=== PATIENT | male | born 1940 | race African-American/Black ===

== ENCOUNTER 2017-11-13 19:43 | Emergency (ER) | payer MEDICARE, OTHER ==
[2017-11-13 20:34] LABS: Bilirubin Small (Negative); Blood, Urine Negative (Negative); Clarity CLEAR (Clear); Glucose, Urine (Dipstick) Negative (Negative); Leukocyte Trace (Negative); Nitrite Negative (Negative); Protein, Urine (Dipstick) 100 mg/dL (Neg-Trace); Specific Gravity, Urine 1.025 (1.002-1.036)
[2017-11-13 20:36] LABS: Bacteria/HPF None Seen HPF (None Seen); Hyaline Casts/LPF 4-6 HYALINE CAST LPF (0-3 Hyaline); Squamous Epithelial 0-3 HPF (0-3); WBC/HPF 0-3 HPF (0-3)
[2017-11-13 20:37] LABS: RBC/HPF 0-3 HPF (0-3)
--- NOTE | 2017-11-13 21:11 | RAD ---
RADIOGRAPH OF CHEST TWO VIEW SERIES 11/13/17 COMPARISON: 05/08/17 INDICATION: Cough. FINDINGS: There is no evidence of consolidation, effusion or pneumothorax. The cardiomediastinal silhouette is stable. Metallic clips again seen at the base of the left neck. Vascular calcification and osseous de generative changes present. IMPRESSION: No lobar consolidation. POS: [facility]
[2017-11-13 23:14] LABS: #Lymphocytes 1.4 thou/uL (1.20-3.40); %Basophils 0.4 % (0.0-1.0); %Eosinophils 0.4 % (0.0-10.0); %Lymphocytes 13.5 % (21.0-51.0); %Monocytes 9.7 % (0.0-10.0); %Neutrophils 76.1 % (42.0-75.0); Hemoglobin 10.7 g/dL (14.0-18.0); Mean Corpuscular HGB CONC 32.1 g/dL (32.0-36.0); Mean Corpuscular Hemoglobin 24.6 pg (27.0-31.0); Mean Corpuscular Volume 76.5 fl (80.0-94.0); Mean Platelet Volume 11.4 fL (7.4-10.4); Platelet Count 172 thou/uL (130-400); RBC Distribution Width 13.3 % (11.5-14.5); Red Blood Cell (RBC) Count 4.34 mill/uL (4.70-6.10); White Blood Cell (WBC) Count 10.4 thou/uL (4.8-10.8)
[2017-11-13 23:27] LABS: ALT (SGPT) 9 U/L (8-55); AST (SGOT) 20 U/L (5-34); Albumin 3.8 g/dL (3.4-4.8); Alkaline Phosphatase 59 U/L (40-150); Anion Gap 12 mmol/L (10-20); BUN (Urea Nitrogen) 19 mg/dL (8.4-25.7); Bilirubin, Total 1.1 mg/dL (0.2-1.2); Calc. Creatinine Clearance 0 mL/min (70-130); Calcium 9.5 mg/dL (7.8-10.44); Carbon Dioxide 27 mmol/L (23-31); Chloride 105 mmol/L (98-107); Estimated GFR-MDRD 55; Globulin 3.5 g/dL (2.4-3.5); Glucose 113 mg/dL (83-110); Potassium 3.7 mmol/L (3.5-5.1); Protein, Total 7.3 g/dL (5.8-8.1); Sodium 140 mmol/L (136-145)
== END 2017-11-13 23:53 | disposition home or self-care (01) ==
LOC: ERS 19:43
DX: J20.9 Acute bronchitis, unspecified (principal); H10.9 Unspecified conjunctivitis; E11.9 Type 2 diabetes mellitus without complications; E78.5 Hyperlipidemia, unspecified; I10 Essential (primary) hypertension; F31.9 Bipolar disorder, unspecified; Z79.899 Other long term (current) drug therapy; Z79.82 Long term (current) use of aspirin
CPT/HCPCS: 71046; 80053; 81003; 81015; 85025; 87804; 94640

== ENCOUNTER 2017-11-18 04:09 | Inpatient (IN) | payer MEDICARE, OTHER ==
[2017-11-18] MEDS ORDERED: Ibuprofen 800 MG TAB ONE (04:49)
[2017-11-18 05:17] LABS: ALT (SGPT) 13 U/L (8-55); AST (SGOT) 32 U/L (5-34); Albumin 3.6 g/dL (3.4-4.8); Alkaline Phosphatase 47 U/L (40-150); Anion Gap 14 mmol/L (10-20); BUN (Urea Nitrogen) 18 mg/dL (8.4-25.7); Bilirubin, Total 0.5 mg/dL (0.2-1.2); Calc. Creatinine Clearance 0 mL/min (70-130); Calcium 9.1 mg/dL (7.8-10.44); Carbon Dioxide 26 mmol/L (23-31); Chloride 99 mmol/L (98-107); Estimated GFR-MDRD 56; Glucose 127 mg/dL (83-110); Potassium 4.5 mmol/L (3.5-5.1); Protein, Total 7.6 g/dL (5.8-8.1); Sodium 134 mmol/L (136-145)
[2017-11-18 05:43] LABS: Band 6 % (5-11); Hemoglobin 10.8 g/dL (14.0-18.0); Lymphocytes 18 % (21-51); MDiff Complete? YES; Mean Corpuscular Hemoglobin 24.3 pg (27.0-31.0); Mean Corpuscular Volume 75.9 fl (80.0-94.0); Mean Platelet Volume 11.4 fL (7.4-10.4); Monocytes 10 % (0-10); Neutrophil 66 % (42-75); Platelet Count 187 thou/uL (130-400); Red Blood Cell (RBC) Count 4.45 mill/uL (4.70-6.10)
[2017-11-18 05:51] LABS: Bilirubin Negative (Negative); Blood, Urine Negative (Negative); Clarity CLEAR (Clear); Glucose, Urine (Dipstick) Negative (Negative); Leukocyte Negative (Negative); Nitrite Negative (Negative); Protein, Urine (Dipstick) 30 mg/dL (Neg-Trace); Specific Gravity, Urine 1.016 (1.002-1.036)
[2017-11-18 05:54] LABS: Bacteria/HPF None Seen HPF (None Seen); Hyaline Casts/LPF 0-3 HYALINE CAST LPF (0-3 Hyaline); Pathc Cast-AUWi Flag 0.27 (0-2.49); Squamous Epithelial 0-3 HPF (0-3); WBC/HPF 0-3 HPF (0-3)
[2017-11-18 06:34] LABS: RBC/HPF 0-3 HPF (0-3); Renal Epithelial 0-3 HPF (0-3)
[2017-11-18 06:48] LABS: CKMB 1.5 ng/mL (0-6.6); Troponin I 0.022 ng/mL (< 0.028)
[2017-11-18] MEDS ORDERED: Acetaminophen 500 MG TAB ONE (06:48)
[2017-11-18] MEDS ORDERED: Acetaminophen 650 MG Suppository ONE (07:24)
[2017-11-18] MEDS ORDERED: Acetaminophen 325 MG Suppository ONE (07:24)
--- NOTE | 2017-11-18 08:00 | RAD ---
PORTABLE CHEST: Date: 11-18-17 Time: 4:48 a.m. History: Fever. FINDINGS: Comparison is made with exam of 11-13-17. The heart size is borderline. The aorta is tortuous. No lobar consolidation, pneumothorax, earl pulm onary edema, or pleural effusions are seen. Post op changes in the base of the left knee are re-demon strated. IMPRESSION: No acute process. POS: [facility]
[2017-11-18] MEDS ORDERED: Lidocaine 1% PF 5 ML VIAL ONE (08:48)
[2017-11-18] MEDS ORDERED: CEFAZOLIN/Water 2 GM/20 ML SYRINGE ONE (09:21)
[2017-11-18] MEDS ORDERED: Vancomycin HCl 1.5 GM in Sodium Chloride 0.9% 250 ML 300 ML IVPB SCH (09:30)
[2017-11-18] MEDS ORDERED: cefTRIAXone\\ROCEPHIN 2 GM in Sodium Chloride 0.9% 100 ML IVPB SCH (09:30)
[2017-11-18] MEDS ORDERED: Ampicillin 2 GM, Syringe 5.2 ML in Sterile Water 14.8 ML SLOW IVP SCH ×2 (09:30→17:00)
[2017-11-18 09:34] LABS: Color Of CSF Supernatant COLORLESS (Colorless); Tube # 2; Unspun CSF Color COLORLESS (Colorless)
[2017-11-18 09:45] LABS: CSF, Glucose Less than 5 mg/dl (40-70)
[2017-11-18 09:46] LABS: CSF Source CSF; Tube # 1
[2017-11-18 09:47] LABS: Clarity Cloudy/Turbid (Clear)
[2017-11-18 09:49] LABS: WBC/NonHematics Count - Manual 73500 /cumm (0-5)
[2017-11-18 09:52] LABS: CSF Source CSF; Clarity Cloudy/Turbid (Clear); Tube # 4
[2017-11-18 10:39] LABS: Cell Count Non Hematic 6 %; Lymphocytes 1 %
[2017-11-18 10:42] LABS: Segmented Neutrophils 93 %
[2017-11-18 10:44] LABS: Cell Count Non Hematic 5 %; Lymphocytes 2 %; Segmented Neutrophils 93 %
[2017-11-18 11:10] LABS: CSF, Protein 642 mg/dL (15-40)
[2017-11-18] MEDS ORDERED: Ondansetron HCl/PF 4 MG/2 ML Vial IVP PRN (15:09)
[2017-11-18] MEDS ORDERED: Ondansetron ODT 4 MG TAB SL PRN (15:09)
[2017-11-18] MEDS: Sodium Chloride 0.45% 1,000 ML IV SCH (18:07)
[2017-11-18] MEDS: Ampicillin 2 GM, Syringe 5.2 ML in Sterile Water 14.8 ML SLOW IVP SCH ×2 (18:07→21:24)
[2017-11-18] MEDS: cefTRIAXone\\ROCEPHIN 2 GM in Sodium Chloride 0.9% 100 ML IVPB SCH (21:10)
[2017-11-18] MEDS: Dexamethasone 4 mg/ml Vial SLOW IVP SCH (21:13)
[2017-11-18] MEDS: Simvastatin 20 MG TAB PO SCH (21:15)
[2017-11-18] MEDS: hydrALAZINE 25 MG TAB PO SCH (21:15)
[2017-11-18] MEDS: Divalproex Sodium DR 500 MG TAB PO SCH (21:17)
[2017-11-18] MEDS: risperiDONE 3 MG TAB PO SCH (21:17)
[2017-11-18] MEDS ORDERED: Vancomycin HCl 1 GM in Premix Bag 1 BAG IVPB SCH (23:00)
[2017-11-19] MEDS: Ampicillin 2 GM, Syringe 5.2 ML in Sterile Water 14.8 ML SLOW IVP SCH ×5 (01:50→19:14)
--- NOTE | 2017-11-19 05:58 | HP ---
DATE OF ADMISSION: 11/18/2017 REASON FOR ADMISSION AND CHIEF COMPLAINT: Altered mental status, fever, cough. HISTORY OF PRESENT ILLNESS: Mr. Brian is a 77-year-old -Italian male with past medical his tory of hypertension, hypothyroidism, bipolar disorder, who was brought in by the family with change in mental status. The patient has been having fever for the last couple of days. The patient was se en in the ER about 5-6 days ago and was diagnosed with bronchitis and was given Z-Valentin and released, b ut the patient developed fever of 102 now since yesterday, has been having cough, and also there is s ome change in mental status. The patient woke up confused and weak. No strength, complained of lot of headache as well. The patient was given Tylenol. EMS was called and patient was brought to the e mergency room, where he was evaluated and found to be change in mental status as well as possible men ingitis. The patient received antibiotics, Rocephin, vancomycin, and ampicillin in the ER and receiv ed Tylenol as well and admitted for further evaluation and management. Currently, the patient is mor e awake and alert. PAST MEDICAL HISTORY: 1. Hypertension. 2. Diabetes mellitus. 3. Bipolar disorder. 4. Hypothyroidism. 5. History of colon diverticulosis. 6. History of depression and anxiety. 7. History of atrial flutter, status post ablation. PAST SURGICAL HISTORY: Status post partial thyroidectomy, status post ablation of atrial flutter. CURRENT MEDICATIONS: The patient is on aspirin 81 mg daily, vitamin D 5000 units daily, vitamin B12 of 1000 mcg daily, Depakote 750 mg at bedtime, ferrous sulfate daily, fish oil 1000 mg daily, folic a kelvin 1 mg daily, Lasix 40 mg daily, hydralazine 100 mg t.i.d., levothyroxine 125 mcg daily, lisinopril 40 mg daily, metoprolol 100 mg daily, Risperdal 3 mg at bedtime, simvastatin 20 mg at bedtime, Coenz yme Q daily. ALLERGIES: No known drug allergies. FAMILY HISTORY: Nothing of interest. SOCIAL HISTORY: The patient lives with his . No history of smoking. No history of alcohol inta ke. REVIEW OF SYMPTOMS: Cardiovascular: No chest pain. No shortness of breath. Respiratory: Has coug h and fever. Gastrointestinal: No nausea or vomiting, or abdominal pain. Genitourinary: No dysuri a or hematuria. Central nervous system: The patient has a history of confusion and altered mental. PHYSICAL EXAMINATION: GENERAL: The patient is now alert, awake, oriented x2. VITAL SIGNS: Temperature initially it was 102, now 98.5, pulse 67, respirations 20, blood pressure 1 50/60. HEENT: Head is normocephalic, atraumatic. Pupils are equal and reactive to light. Nasopharynx is p tamiko and dry. NECK: Stiff. No JVD. LUNGS: Breath sounds diminished bilaterally. Percussion not dull bilaterally. No rales, no rhonchi . HEART: S1, S2, regular. ABDOMEN: Soft, no distention, no tenderness. Normal bowel sounds present. RECTAL: Deferred. CENTRAL NERVOUS SYSTEM: The patient is alert, awake x2. Motor system power 4/5 in all extremities. Deep tendon reflexes 2+ bilaterally. Plantar downgoing. Sensory intact. EXTREMITIES: 1+ pitting edema. LABORATORY AND X-RAY FINDINGS: CBC shows WBC 7, hemoglobin 10.8, hematocrit 33.8, platelets 187. Me tabolic panel: Sodium 134, potassium 4.5, chloride 99, CO2 of 26, urea nitrogen 18, creatinine is 1. 4, glucose is 127. Urinalysis negative. CSF analysis initially showed wbc 37,000, neutrophils 93%, glucose less than 5, protein 642. EKG shows accelerated junctional rhythm, no acute ST-T wave change s seen. Chest x-ray negative. ASSESSMENT: 1. Acute meningitis, possible bacterial. 2. Metabolic encephalopathy, improving. 3. Diabetes mellitus. 4. Hypertension. 5. Hypothyroidism. 6. Bipolar disorder. PLAN: 1. Vital signs q.4 hours. 2. Activity: As tolerated. 3. IV fluids: Half normal at 60 mL per hour. 4. Rocephin 2 grams IV piggyback q.12 hours, ampicillin 2 grams IV piggyback q.4 hours, vancomycin 1 .5 grams IV piggyback q.12 hours. 5. Continue home medication. 6. Allergies: No known drug allergies. 7. Diet: ADA.
[2017-11-19] MEDS: Levothyroxine Sodium 125 MCG TAB PO SCH (06:14)
[2017-11-19] MEDS ORDERED: CRANBERRY EXTRACT PO SCH (09:00)
[2017-11-19] MEDS: Dexamethasone 4 mg/ml Vial SLOW IVP SCH ×2 (09:21→21:08)
[2017-11-19] MEDS: Ferrous Sulfate 325 MG TAB PO SCH (09:22)
[2017-11-19] MEDS: Cyanocobalamin (Vitamin B-12) 1,000 MCG TAB PO SCH (09:22)
[2017-11-19] MEDS: Aspirin 81 mg Enteric Coated Tablet PO SCH (09:22)
[2017-11-19] MEDS: Ubidecarenone 50 MG CAP PO SCH (09:23)
[2017-11-19] MEDS: hydrALAZINE 25 MG TAB PO SCH ×3 (09:23→21:06)
[2017-11-19] MEDS: Lisinopril 20 MG TAB PO SCH (09:23)
[2017-11-19] MEDS: Folic Acid 1 MG TAB PO SCH (09:23)
[2017-11-19] MEDS: Fish Oil 1,000 MG CAP PO SCH (09:23)
[2017-11-19] MEDS: cefTRIAXone\\ROCEPHIN 2 GM in Sodium Chloride 0.9% 100 ML IVPB SCH ×2 (09:38→21:46)
[2017-11-19] MEDS: Vancomycin HCl 1 GM in Premix Bag 1 BAG IVPB SCH ×2 (09:38→15:55)
[2017-11-19] MEDS: Sodium Chloride 0.45% 1,000 ML IV SCH (09:45)
[2017-11-19] MEDS ORDERED: cefTRIAXone\\ROCEPHIN 2 GM in Sodium Chloride 0.9% 100 ML IVPB SCH (10:00)
[2017-11-19] MEDS ORDERED: Acetaminophen 1,000 MG in Premix Bag 1 BAG IVPB SCH (12:00)
[2017-11-19] MEDS ORDERED: Acetaminophen 500 MG TAB PO PRN (17:36)
[2017-11-19] MEDS: Divalproex Sodium DR 500 MG TAB PO SCH (21:07)
--- NOTE | 2017-11-19 21:07 | CON ---
DATE OF CONSULTATION: 11/19/2017 HISTORY OF PRESENT ILLNESS: Mr. Brian is a 77-year-old male who presented yesterday afternoon. He had altered mental status and fever. He had a lumbar puncture, which showed 73,000 white cells, 96.3% neutrophils. Glucose was less than 5 and CSF protein is 642. He was admitted to intermediate care and then had a decline in his mental status. This morning he wa s transferred to ICU. After his temperature elevation resolved, he became more alert. He is adequat vero protecting his airway at this time. His initial cultures preliminarily negative, but he was on azithromycin prior to his admission. PAST MEDICAL HISTORY: Remarkable for hypertension, diabetes, bipolar disorder, hypothyroidism, diver ticulosis, depression, and anxiety and atrial flutter ablation. He has had a partial thyroidectomy. MEDICATIONS PRIOR TO ADMISSION: Aspirin, vitamin D, vitamin B12, Depakote, iron, folate, Lasix, hydr alazine, Synthroid, lisinopril, metoprolol, Risperdal, simvastatin, Coenzyme Q10. He has been placed on ampicillin, Rocephin, and vancomycin. ALLERGIES: He has no reported drug allergies. FAMILY HISTORY: Negative for lung disease at an early age. SOCIAL HISTORY: He is a non-smoker, nondrinker, does not use drugs. He lives at home in [place] with his . REVIEW OF SYSTEMS: Otherwise, not accurately obtainable 12-point. PHYSICAL EXAMINATION: VITAL SIGNS: Blood pressure 129/65, heart rate 87, respiratory rate in the low 20s. HEENT: Pupils are equal and reactive. Sclerae is anicteric. Extraocular movements are full. Neck is stiff. I cannot touch under his chest. NEUROLOGIC: He follows commands, but then he keeps doing the command that one gives him. I asked hi m to flex his head down with chin to his chest and he would not release it back until I move the back . He has equal four extremities strength neurologically. NECK: Without lymphadenopathy. LUNGS: Clear. HEART: Regular rhythm. S1 and S2 are normal. ABDOMEN: Soft, nontender, no masses, or organomegaly. EXTREMITIES: Without clubbing, cyanosis, or edema. NEUROLOGIC: Nonfocal. LABORATORY DATA: Sodium 134, potassium 4.5, chloride 99, bicarbonate 26, BUN 18, creatinine 1.48. W lanre count 7.0, hemoglobin 10.8, platelets 187,000. IMPRESSION: Bacterial meningitis. His cultures are negative, most likely because of azithromycin. I doubt this has been meningococcus. Most likely streptococcal meningitis. He appears to be stabilizing. Hopefully, we can avoid intubation. Critical care time was 30 minutes.
[2017-11-19] MEDS: Simvastatin 20 MG TAB PO SCH (21:08)
[2017-11-19] MEDS: risperiDONE 3 MG TAB PO SCH (23:05)
[2017-11-20] MEDS: Sodium Chloride 0.45% 1,000 ML IV SCH ×2 (00:04→13:57)
[2017-11-20] MEDS: Ampicillin 2 GM, Syringe 5.2 ML in Sterile Water 14.8 ML SLOW IVP SCH ×7 (00:04→21:49)
[2017-11-20] MEDS: Vancomycin HCl 1 GM in Premix Bag 1 BAG IVPB SCH ×3 (01:46→16:04)
[2017-11-20] MEDS: Levothyroxine Sodium 125 MCG TAB PO SCH (05:56)
[2017-11-20] MEDS: Ferrous Sulfate 325 MG TAB PO SCH (08:04)
[2017-11-20] MEDS: hydrALAZINE 25 MG TAB PO SCH ×3 (08:05→21:07)
[2017-11-20] MEDS: Aspirin 81 mg Enteric Coated Tablet PO SCH (08:08)
[2017-11-20] MEDS: Folic Acid 1 MG TAB PO SCH (08:08)
[2017-11-20] MEDS: Ubidecarenone 50 MG CAP PO SCH (08:09)
[2017-11-20] MEDS: Cyanocobalamin (Vitamin B-12) 1,000 MCG TAB PO SCH (08:09)
[2017-11-20] MEDS: Lisinopril 20 MG TAB PO SCH (08:11)
[2017-11-20] MEDS: Fish Oil 1,000 MG CAP PO SCH (08:12)
[2017-11-20] MEDS: Dexamethasone 4 mg/ml Vial SLOW IVP SCH ×2 (08:14→21:08)
[2017-11-20 08:50] LABS: Hemoglobin 9.5 g/dL (14.0-18.0); Mean Corpuscular HGB CONC 31.3 g/dL (32.0-36.0); Mean Corpuscular Hemoglobin 23.7 pg (27.0-31.0); Mean Corpuscular Volume 75.7 fl (80.0-94.0); Platelet Count 188 thou/uL (130-400); Red Blood Cell (RBC) Count 4.01 mill/uL (4.70-6.10); White Blood Cell (WBC) Count 14.8 thou/uL (4.8-10.8)
[2017-11-20 08:55] LABS: Vancomycin, Trough 22.2 ug/mL
[2017-11-20 08:57] LABS: Anion Gap 10 mmol/L (10-20); BUN (Urea Nitrogen) 14 mg/dL (8.4-25.7); Calc. Creatinine Clearance 77 mL/min (70-130); Calcium 8.8 mg/dL (7.8-10.44); Carbon Dioxide 27 mmol/L (23-31); Chloride 100 mmol/L (98-107); Estimated GFR-MDRD 72; Glucose 143 mg/dL (83-110); Potassium 3.3 mmol/L (3.5-5.1); Sodium 134 mmol/L (136-145)
[2017-11-20 09:17] LABS: Anisocytosis SLIGHT = 6-15 cells (100X) (0-5/hpf); Hypochromia SLIGHT = 6-15 cells (100X) (0-5/hpf); Large Platelets SLIGHT; Lymphocytes 5 % (21-51); MDiff Complete? YES; Monocytes 7 % (0-10); Neutrophil 85 % (42-75); Ovalocytes SLIGHT = 2-5 cells (100X) (0-1/hpf); Poikilocytosis SLIGHT = 6-15 cells (100X) (0-5/hpf); Reactive Lymphocytes 3 % (0-10); Target Cells SLIGHT = 2-5 cells (100X) (0-1/hpf)
[2017-11-20] MEDS: cefTRIAXone\\ROCEPHIN 2 GM in Sodium Chloride 0.9% 100 ML IVPB SCH ×2 (09:48→22:10)
[2017-11-20] MEDS ORDERED: Potassium Chloride 20 MEQ TAB PO SCH (11:00)
--- NOTE | 2017-11-20 12:40 | PRG ---
DATE OF SERVICE: 11/20/2017 SUBJECTIVE: Mr. Brian knows he is at [facility]. He could not tell me what day it was, b ut probably cannot on most days. OBJECTIVE: VITAL SIGNS: He is afebrile. Heart rate is 82, respiratory rate is 17, oximetry is 93% on room air and blood pressure 114/55. HEAD AND NECK: Exam is unchanged. LUNGS: Clear. HEART: Regular rhythm. S1 and S2 are normal. ABDOMEN: Soft and nontender. EXTREMITIES: Without clubbing, cyanosis, or edema. LABORATORY DATA: White count 14.8, hemoglobin 9.5 and platelets 188. Sodium 134, potassium 3.3, chloride 100, bicarbonate 27, BUN 14 and creatinine 1.19. He has no bands on today's peripheral smear. IMPRESSION: 1. Bacterial meningitis, most likely Streptococcus. His cultures remain negative. 2. Deconditioning. 3. Anemia with a decreased mean corpuscular volume? iron deficiency. 4. Mild hypokalemia. 5. Diabetes. PLAN: Continue antimicrobial therapy. He is on very broad antimicrobial therapy empirically because of the unknown pathogen. It may be erika sonable if his cultures remain negative to discontinue his vancomycin and continue with Rocephin and ampicillin. He can feed himself, but swallows well when he is fed. He is a candidate to move out of the critical care unit in my opinion.
--- NOTE | 2017-11-20 18:57 | CON ---
DATE OF CONSULTATION: 11/20/2017 REASON FOR CONSULTATION: Possible meningitis. HISTORY OF PRESENT ILLNESS: A 77-year-old with a history of type 2 diabetes mellitus, hyperlipidemia, hypertension, and bipolar disorder. In 10/2015, he was admitted to the hospital because of chronic diarrhea. At that time, he had identified renal mass in the right side and he had a renal cryoablation, right retroperitoneal laparoscopic and the pathology revealed benign renal cortex and then he remain in his usual state. According to , he is a pretty functional person. Until 4 days before admission when he developed confusional state and fever, brought to the emergency room and then released with a diagnosis of viral illness on Z-Valentin reportedly. He was brought back because of recrudescence of symptoms 2-3 days later. At this time, his mental status changes were worse and he was having fever. He was weak, hard time standing up , did not complain of any pain. No respiratory symptoms or abdominal pain, no diarrhea, no genitourinary symptoms. He did say he did have some headaches. Initial white cell count was 7000 with 66% neutrophils, 6% bands. Creatinine 1.48. GFR 56. CSF evaluation showed 37,000 WBCs with 93% segmented neutrophils. Glucose was less than 5, protein 642. CSF culture thus far negative. Blood cultures no growth at 48 hours. The patient has been given ampicillin, vancomycin, Rocephin and Decadron. He still had some fever intermittently and he also a little bit confused, but more aware of himself, eating dinner at the time of my visit. Again, he denies any pain at this point. His speech is halting and has a hard time finding words. He will follow commands after insistence. Other 10-point review of systems is as above. PAST MEDICAL HISTORY: Includes type 2 diabetes mellitus, hypertension, bipolar disorder, hypothyroidism, renal mass which was shown to be benign, atrial flutter with ablation, depression, colon diverticulosis. SURGICAL HISTORY: Thyroidectomy. MEDICATIONS: Aspirin, vitamin D, Depakote, ferrous sulfate, folic acid, hydralazine, levothyroxine, lisinopril, metoprolol, Risperdal, Zocor, Coenzyme Q10. ALLERGIES: None. FAMILY HISTORY: Noncontributory. SOCIAL HISTORY: Lives with in the area, never smoker. PHYSICAL EXAMINATION: VITAL SIGNS: T-max of 102.6 and then recently 101.7, blood pressure 166/73, pulse 82, respirations 17, O2 sat 100. SKIN: No areas of skin breakdown. The patient has a peripheral IV access, is voiding spontaneously. HEENT: Ocular movements are conjugate. Sclerae white. Pupils are 1 mm and reactive. Oral cavity moist, has numerous teeth in place with significant dental decay. NECK: Stiff to all directions. LUNGS: With symmetric clear breath sounds. HEART: S1, S2, regular rate. No S3 or S4. ABDOMEN: Soft, not distended or tender. No ascites. No bladder distention. EXTREMITIES: No joint inflammatory activity. Pulses are 1+ in dorsalis pedis. NEUROLOGIC: Plantar responses are flexor. No clonus. LABORATORY: Showed a white cell count up to 14.8, hemoglobin 9.5, platelets 188 , 85% neutrophils. Sodium 134, creatinine 1.19, GFR estimated 72. Liver profile normal and the CSF as noted above. IMAGING STUDIES: There is a chest x-ray from admission with no acute process. ASSESSMENT: 1. Type 2 diabetes with hypertension. 2. Altered mental status, fever, abnormal CSF with marked neutrophilic pleocytosis and severe hypoglycorrhachia. DISCUSSION: The findings are atypical for bacterial meningitis in view of the extreme elevation of WBC count, the severe hypoglycorrhachia in the absence of positive cultures either in blood or in CSF. This man could still have a bacterial meningitis process, but we have to rule out a parameningeal inflammatory process such as subdural empyema or brain abscess with ventricular extension. A spinal epidural process is less likely in view of absence of pain. If the MRI of the brain does not show any significant findings, then we will have to consider scanning his spine, but we will start with head MRI. Continue current antimicrobials for the time being. MTDD
[2017-11-20] MEDS ORDERED: Vancomycin HCl 1.25 GM in Sodium Chloride 0.9% 250 ML 250 ML IVPB SCH (21:00)
[2017-11-20] MEDS: Simvastatin 20 MG TAB PO SCH (21:07)
[2017-11-20] MEDS: Divalproex Sodium DR 500 MG TAB PO SCH (21:07)
[2017-11-20] MEDS: risperiDONE 3 MG TAB PO SCH (21:09)
[2017-11-21] MEDS: Vancomycin HCl 1 GM in Premix Bag 1 BAG IVPB SCH ×2 (01:46→10:44)
[2017-11-21] MEDS: Sodium Chloride 0.45% 1,000 ML IV SCH (01:47)
[2017-11-21] MEDS: Ampicillin 2 GM, Syringe 5.2 ML in Sterile Water 14.8 ML SLOW IVP SCH ×6 (03:32→23:30)
[2017-11-21 04:36] LABS: Anion Gap 10 mmol/L (10-20); BUN (Urea Nitrogen) 19 mg/dL (8.4-25.7); Calc. Creatinine Clearance 70 mL/min (70-130); Calcium 9.3 mg/dL (7.8-10.44); Carbon Dioxide 28 mmol/L (23-31); Chloride 97 mmol/L (98-107); Estimated GFR-MDRD 64; Glucose 162 mg/dL (83-110); Potassium 4.4 mmol/L (3.5-5.1); Sodium 131 mmol/L (136-145)
[2017-11-21 05:01] LABS: Band 1 % (5-11); Hemoglobin 10.6 g/dL (14.0-18.0); Lymphocytes 14 % (21-51); MDiff Complete? YES; Mean Corpuscular HGB CONC 32.7 g/dL (32.0-36.0); Mean Corpuscular Hemoglobin 24.8 pg (27.0-31.0); Mean Corpuscular Volume 75.8 fl (80.0-94.0); Mean Platelet Volume 10.5 fL (7.4-10.4); Monocytes 5 % (0-10); Neutrophil 80 % (42-75); PLT Morphology Comment Appears Adequate; Platelet Count 175 thou/uL (130-400); Red Blood Cell (RBC) Count 4.28 mill/uL (4.70-6.10); Target Cells SLIGHT = 2-5 cells (100X) (0-1/hpf)
[2017-11-21] MEDS: Levothyroxine Sodium 125 MCG TAB PO SCH (06:16)
[2017-11-21] MEDS: hydrALAZINE 25 MG TAB PO SCH ×3 (08:12→21:51)
[2017-11-21] MEDS: Lisinopril 20 MG TAB PO SCH (08:12)
[2017-11-21] MEDS: Folic Acid 1 MG TAB PO SCH (08:13)
[2017-11-21] MEDS: Cyanocobalamin (Vitamin B-12) 1,000 MCG TAB PO SCH (08:14)
[2017-11-21] MEDS: Aspirin 81 mg Enteric Coated Tablet PO SCH (08:14)
[2017-11-21] MEDS: Dexamethasone 4 mg/ml Vial SLOW IVP SCH ×2 (08:14→21:50)
[2017-11-21] MEDS: Fish Oil 1,000 MG CAP PO SCH (08:19)
[2017-11-21] MEDS: Ferrous Sulfate 325 MG TAB PO SCH (08:19)
[2017-11-21] MEDS: Ubidecarenone 50 MG CAP PO SCH (08:19)
[2017-11-21] MEDS: cefTRIAXone\\ROCEPHIN 2 GM in Sodium Chloride 0.9% 100 ML IVPB SCH (09:00)
[2017-11-21] MEDS: Sodium Chloride 0.9% 1,000 ML IV SCH ×2 (09:40→22:00)
--- NOTE | 2017-11-21 09:42 | PRG ---
DATE OF SERVICE: 11/21/2017 SUBJECTIVE: The patient is doing reasonably well. He will wake up and answer some simple questions, but quickly drop off to sleep. PHYSICAL EXAMINATION: VITAL SIGNS: Temperature is 98.9, pulse 72, blood pressure 161/70. A 24-hour intake 3477, output 8. HEENT: Unremarkable. NECK: No JVD. CHEST: Clear. CARDIAC: S1 and S2 regular. ABDOMEN: Soft. EXTREMITIES: No edema. LABORATORY DATA: White blood cell count 15, hematocrit 32.4, platelet count 175. Sodium 131, potass ium 4.4, chloride 97, CO2 of 28, BUN 19, creatinine 1.3, glucose 162. ASSESSMENT: Meningitis. PLAN: Continuing antibiotics. So far, cultures have been negative. I appreciate Dr. Munson' input. We will continue to follow with you.
--- NOTE | 2017-11-21 14:17 | MRI ---
BRAIN MRI WITH AND WITHOUT CONTRAST: Date: 11/21/17 COMPARISON: None. HISTORY: Altered mental status, concern for infection. TECHNIQUE: Multiplanar, multisequence MR imaging of the brain is provided with and without contrast. FINDINGS: The diffusion-weighted imaging demonstrates extensive areas of increased signal intensity within the cortical sulci within bilateral frontal and parietal regions, left greater than right. In addition, t here is material of increased signal intensity on the diffusion-weighted imaging layering within the posterior horns/occipital horns of bilateral lateral ventricles. The material within the lateral vent ricles demonstrates definite restricted diffusion. The areas of increased signal intensity on the dif fusion-weighted imaging within the cortical sulci is difficult to evaluate for restriction secondary to the inherent increased signal intensity on ADC map within the CSF space. The gradient echo imaging demonstrates linear areas of blooming artifact in numerous cortical sulci, including bilateral frontal and parietal regions. The areas of blooming artifact also demonstrate inc reased signal intensity on the diffusion-weighted imaging. Postcontrast imaging is limited on the basis of motion. There is a somewhat linear/focal area of enha ncement within the left frontal region which could be in a cortical sulcus or within the cortex or ceballos bcortical white matter. This area of enhancement measures 6-7 mm and is of uncertain clinical signifi cance. There is mild mucosal thickening involving the maxillary sinuses, sphenoid sinuses, and ethmoid air c ells bilaterally. Arterial flow-voids at axial level of skull base appear grossly unremarkable on the T2-weighted imaging. IMPRESSION: Extensive areas of signal abnormality seen within cortical sulci and within the ventricular system on the diffusion-weighted imaging, differential diagnosis including infectious material on the basis of meningitis and ventriculitis. These findings could also be seen on the basis of subarachnoid and int raventricular blood. Clinical correlation is essential. There is a focus of enhancement measuring 6-7 mm within the left frontal region, which could signify a cortically based lesion, enhancing infected material in an intra-axial or extra-axial location, including a focal area of cerebritis. Thus, shor t-term follow-up imaging following treatment is advised. Case discussed with Dr. Munson at the time of interpretation. CODE T. POS: [facility]
--- NOTE | 2017-11-21 15:35 | PRG ---
DATE OF SERVICE: 11/21/2017 SUBJECTIVE: Mr. Brian has been transferred to the floor in the telemetry area. He is awake, orien jordon, follows all commands, coughing intermittently. Denies any headaches. Denies any respiratory sy mptoms. No dyspnea. No back pain, no abdominal pain. He is voiding spontaneously. PHYSICAL EXAMINATION: VITAL SIGNS: Show T-max of 99.8, he is currently 99, blood pressure 154/60, heart rate 65, respirato ry rate 22, O2 sat 99%. GENERAL: No acute distress. He is oriented and follows commands. HEENT: Ocular movements are conjugate. Oral cavity normal. LUNGS: With symmetric air entry. S1 and S2 regular rate. NECK: Little bit of stiffness of neck ABDOMEN: Soft, not distended. MUSCULOSKELETAL: He is able to move all extremities equally. LABORATORY DATA: White cell count is 15,000, hemoglobin 10.6, platelets 175 with 80% neutrophils. S odium 131 and creatinine 1.31. Liver profile normal. CK was 216. CSF cultures thus far are negativ e. MRI has been discussed with the radiologist and he does have evidence of meningitis and ventricul itis, but no focal area to suggest abscess. He may have a little bit of cerebritis here and there. ASSESSMENT AND DISCUSSION: Type 2 diabetes with meningitis. No evidence of focal parameningeal infe ction per recent brain MRI, his spinous infection is less likely. Organisms such as listeria sometim es can present with this kind of manifestation with severe cerebritis, but again strep pneumonia coul d also be associated with this, although one would expect more fulminant progression. He does not davis ve any focal suppurative process noted on MRI. Continue current regimen and discontinue Decadron pro bably by later today.
[2017-11-21 16:43] LABS: Vancomycin, Trough 31.8 ug/mL
[2017-11-21] MEDS: Simvastatin 20 MG TAB PO SCH (21:49)
[2017-11-21] MEDS: Divalproex Sodium DR 500 MG TAB PO SCH (21:49)
[2017-11-21] MEDS: Vancomycin HCl 1.25 GM in Sodium Chloride 0.9% 250 ML 250 ML IVPB SCH (21:50)
[2017-11-21] MEDS: risperiDONE 3 MG TAB PO SCH (21:50)
[2017-11-22] MEDS: Ampicillin 2 GM, Syringe 5.2 ML in Sterile Water 14.8 ML SLOW IVP SCH ×6 (01:49→22:13)
[2017-11-22] MEDS: cefTRIAXone\\ROCEPHIN 2 GM in Sodium Chloride 0.9% 100 ML IVPB SCH ×3 (01:50→23:08)
[2017-11-22 05:51] LABS: Anion Gap 11 mmol/L (10-20); BUN (Urea Nitrogen) 21 mg/dL (8.4-25.7); Calc. Creatinine Clearance 78 mL/min (70-130); Calcium 8.8 mg/dL (7.8-10.44); Carbon Dioxide 26 mmol/L (23-31); Chloride 97 mmol/L (98-107); Estimated GFR-MDRD 73; Glucose 165 mg/dL (83-110); Potassium 4.3 mmol/L (3.5-5.1); Sodium 130 mmol/L (136-145)
[2017-11-22 06:16] LABS: Hemoglobin 10.1 g/dL (14.0-18.0); Hypochromia SLIGHT = 6-15 cells (100X) (0-5/hpf); Lymphocytes 10 % (21-51); MDiff Complete? YES; Mean Corpuscular HGB CONC 32.5 g/dL (32.0-36.0); Mean Corpuscular Hemoglobin 24.8 pg (27.0-31.0); Mean Corpuscular Volume 76.5 fl (80.0-94.0); Mean Platelet Volume 9.8 fL (7.4-10.4); Monocytes 3 % (0-10); Neutrophil 87 % (42-75); PLT Morphology Comment Appears Adequate; Platelet Count 195 thou/uL (130-400); RBC Distribution Width 13.1 % (11.5-14.5); Red Blood Cell (RBC) Count 4.06 mill/uL (4.70-6.10); White Blood Cell (WBC) Count 8.1 thou/uL (4.8-10.8)
[2017-11-22] MEDS: Levothyroxine Sodium 125 MCG TAB PO SCH (06:40)
[2017-11-22] MEDS: Ferrous Sulfate 325 MG TAB PO SCH (08:35)
[2017-11-22] MEDS: Cyanocobalamin (Vitamin B-12) 1,000 MCG TAB PO SCH (08:36)
[2017-11-22] MEDS: Aspirin 81 mg Enteric Coated Tablet PO SCH (08:36)
[2017-11-22] MEDS: Dexamethasone 4 mg/ml Vial SLOW IVP SCH (08:36)
[2017-11-22] MEDS: Fish Oil 1,000 MG CAP PO SCH (08:37)
[2017-11-22] MEDS: Lisinopril 20 MG TAB PO SCH (08:37)
[2017-11-22] MEDS: hydrALAZINE 25 MG TAB PO SCH ×3 (08:37→20:17)
[2017-11-22] MEDS: Folic Acid 1 MG TAB PO SCH (08:37)
[2017-11-22] MEDS: Ubidecarenone 50 MG CAP PO SCH (08:39)
[2017-11-22] MEDS: Vancomycin HCl 1.25 GM in Sodium Chloride 0.9% 250 ML 250 ML IVPB SCH ×2 (08:39→20:19)
--- NOTE | 2017-11-22 13:30 | PRG ---
DATE OF SERVICE: 11/22/2017 SUBJECTIVE: Mr. Brian is more awake and alert today. He is in no distress. PHYSICAL EXAMINATION: VITAL SIGNS: Temperature 98.4, pulse 69, blood pressure 176/78, O2 sat 97%. HEENT: Unremarkable. NECK: No JVD. CHEST: Clear without wheezing. CARDIAC: S1 and S2 regular. ABDOMEN: Soft. EXTREMITIES: No edema. LABORATORY DATA: White blood cell count 8.1, hematocrit 31, and platelet count 195. Sodium 130, pot assium 4.3, chloride 97, CO2 26, BUN 21, creatinine 1.2, and glucose 165. ASSESSMENT: Meningitis with functional improvement in mental status. RECOMMENDATIONS: Continue current treatment including the antibiotics - consolidate medications at t he discretion of Infectious Disease. No further recommendations at this time.
[2017-11-22] MEDS: Sodium Chloride 0.9% 1,000 ML IV SCH (18:10)
[2017-11-22] MEDS ORDERED: Dextrose 5% in Water 1,000 ML IV PRN (18:19)
[2017-11-22] MEDS ORDERED: Dextrose 50% Abboject 50 ML SYRINGE IVP PRN (18:19)
[2017-11-22] MEDS ORDERED: HumaLOG 300 UNITS/3 ML VIAL SC PRN (18:19)
[2017-11-22] MEDS: Divalproex Sodium DR 500 MG TAB PO SCH (20:17)
[2017-11-22] MEDS: risperiDONE 3 MG TAB PO SCH (20:18)
[2017-11-22] MEDS: Simvastatin 20 MG TAB PO SCH (20:18)
[2017-11-23] MEDS: Ampicillin 2 GM, Syringe 5.2 ML in Sterile Water 14.8 ML SLOW IVP SCH ×6 (02:13→21:46)
[2017-11-23 05:21] LABS: Anion Gap 11 mmol/L (10-20); BUN (Urea Nitrogen) 21 mg/dL (8.4-25.7); Calc. Creatinine Clearance 102 mL/min (70-130); Calcium 8.6 mg/dL (7.8-10.44); Carbon Dioxide 24 mmol/L (23-31); Chloride 97 mmol/L (98-107); Estimated GFR-MDRD 88; Glucose 162 mg/dL (83-110); Potassium 4.1 mmol/L (3.5-5.1); Sodium 128 mmol/L (136-145)
[2017-11-23 05:33] LABS: Hemoglobin 10.2 g/dL (14.0-18.0); Lymphocytes 20 % (21-51); MDiff Complete? YES; Mean Corpuscular HGB CONC 32.3 g/dL (32.0-36.0); Mean Corpuscular Hemoglobin 24.7 pg (27.0-31.0); Mean Corpuscular Volume 76.4 fl (80.0-94.0); Mean Platelet Volume 10.1 fL (7.4-10.4); Monocytes 7 % (0-10); Neutrophil 72 % (42-75); PLT Morphology Comment Appears Adequate; Platelet Count 201 thou/uL (130-400); Reactive Lymphocytes 1 % (0-10); Red Blood Cell (RBC) Count 4.12 mill/uL (4.70-6.10); White Blood Cell (WBC) Count 9.4 thou/uL (4.8-10.8)
[2017-11-23] MEDS: Levothyroxine Sodium 125 MCG TAB PO SCH (05:49)
[2017-11-23] MEDS: Fish Oil 1,000 MG CAP PO SCH (08:13)
[2017-11-23] MEDS: Ubidecarenone 50 MG CAP PO SCH (08:13)
[2017-11-23] MEDS: Ferrous Sulfate 325 MG TAB PO SCH (08:14)
[2017-11-23] MEDS: Cyanocobalamin (Vitamin B-12) 1,000 MCG TAB PO SCH (08:14)
[2017-11-23] MEDS: Lisinopril 20 MG TAB PO SCH (08:14)
[2017-11-23] MEDS: hydrALAZINE 25 MG TAB PO SCH ×3 (08:14→20:35)
[2017-11-23] MEDS: Folic Acid 1 MG TAB PO SCH (08:14)
[2017-11-23] MEDS: Aspirin 81 mg Enteric Coated Tablet PO SCH (08:15)
[2017-11-23] MEDS: Vancomycin HCl 1.25 GM in Sodium Chloride 0.9% 250 ML 250 ML IVPB SCH (08:39)
[2017-11-23 09:05] LABS: Vancomycin, Trough 20.5 ug/mL
[2017-11-23] MEDS: cefTRIAXone\\ROCEPHIN 2 GM in Sodium Chloride 0.9% 100 ML IVPB SCH ×2 (11:45→22:18)
--- NOTE | 2017-11-23 11:51 | PRG ---
DATE OF SERVICE: 11/23/2017 He is awake, alert, oriented. He denies any headaches, no neck pain. No shortness of breath or ches t pain, no abdominal pain. Voiding without difficulty. PHYSICAL EXAMINATION: VITAL SIGNS: T-max 98.5, blood pressure 170/80, pulse 58, respirations 18. GENERAL: Oriented, awake, follows commands. EXTREMITIES: A little bit of stiffness in all 4 extremities. HEENT: Ocular movements are conjugate. Sclerae white. Oral cavity normal. LUNGS: Clear. HEART: S1, S2, regular rate. ABDOMEN: Soft. Not distended or tender. NEUROLOGIC: Plantar responses are flexor. LABORATORY: White cell count 9.4, hemoglobin 10, platelets 201 with 72% neutrophils, 20% lymphocytes . Creatinine 1.0. Sodium 128 and cultures are negative almost at the final date. ASSESSMENT AND DISCUSSION: Type 2 diabetes with meningitis, may have a little focus of cerebritis as noted by MRI. No spine infection. Currently on ampicillin, Rocephin and vancomycin to be continued for a total of 21 days. We will need to repeat the MRI in a week or 2 to make sure he does not have an abscess because if he does have one that is more clearly defined by the next MRI, then we will davis ve to extend the duration of therapy for at least 6 weeks.
--- NOTE | 2017-11-23 15:43 | PRG ---
DATE OF SERVICE: 11/23/2017 SUBJECTIVE: Eliceo Brian is awake and alert. He do not appeared to be has been out of bed. OBJECTIVE: VITAL SIGNS: He is afebrile, heart rate 58, blood pressure 174/80, respiratory rate is 18, oximetry is 96. His says he was walking prior to his meningitis. LUNGS: Clear. He is on room air now. HEART: Regular rhythm. ABDOMEN: Soft. IMPRESSION: Bacterial meningitis, probably partially treated with azithromycin leading to negative c ultures. PLAN: Continue broad antimicrobial therapy and begin physical therapy. He has been getting up in e chair for his meals.
[2017-11-23] MEDS ORDERED: Amlodipine 5 MG TAB PO SCH (18:00)
[2017-11-23] MEDS: Divalproex Sodium DR 500 MG TAB PO SCH (20:35)
[2017-11-23] MEDS: Vancomycin HCl 1.5 GM in Sodium Chloride 0.9% 250 ML 300 ML IVPB SCH (20:36)
[2017-11-23] MEDS: risperiDONE 3 MG TAB PO SCH (20:36)
[2017-11-23] MEDS: Simvastatin 20 MG TAB PO SCH (20:44)
[2017-11-24] MEDS: Ampicillin 2 GM, Syringe 5.2 ML in Sterile Water 14.8 ML SLOW IVP SCH ×4 (01:50→14:58)
[2017-11-24] MEDS: Levothyroxine Sodium 125 MCG TAB PO SCH (05:51)
[2017-11-24] MEDS: Lisinopril 20 MG TAB PO SCH (08:54)
[2017-11-24] MEDS: Ubidecarenone 50 MG CAP PO SCH (08:55)
[2017-11-24] MEDS: Fish Oil 1,000 MG CAP PO SCH (08:56)
[2017-11-24] MEDS: Folic Acid 1 MG TAB PO SCH (08:56)
[2017-11-24] MEDS: Aspirin 81 mg Enteric Coated Tablet PO SCH (08:56)
[2017-11-24] MEDS: Ferrous Sulfate 325 MG TAB PO SCH (08:56)
[2017-11-24] MEDS: hydrALAZINE 25 MG TAB PO SCH ×3 (08:56→20:26)
[2017-11-24] MEDS: Amlodipine 5 MG TAB PO SCH (08:56)
[2017-11-24] MEDS: Cyanocobalamin (Vitamin B-12) 1,000 MCG TAB PO SCH (08:56)
[2017-11-24] MEDS: Vancomycin HCl 1.5 GM in Sodium Chloride 0.9% 250 ML 300 ML IVPB SCH ×2 (09:01→20:35)
[2017-11-24] MEDS: cefTRIAXone\\ROCEPHIN 2 GM in Sodium Chloride 0.9% 100 ML IVPB SCH ×2 (10:33→20:43)
--- NOTE | 2017-11-24 17:18 | PRG ---
DATE OF SERVICE: 11/24/2017 SUBJECTIVE: Awake, alert, oriented, follows all commands and his speech is better than before. His replies are fairly prompt and his thought process appears to be normal. He still has diffuse stiffne ss. Denies any respiratory symptoms or abdominal pain and he is voiding spontaneously. OBJECITVE: VITALSIGNS: T-max 98.6, blood pressure 126/60, pulse 60, respirations 16, O2 sat 97%. GENERAL: There is no distress, ate full meal with both breakfast and lunch. HEENT: Oral cavity moist. NECK: Supple. LUNGS: Symmetric clear breath sounds. CARDIOVASCULAR: S1, S2, regular rate. EXTREMITIES: Diffuse stiffness in the upper and lower extremities. He is able to move his hands wel l. Feet, plantar responses are flexor. LABORATORY DATA: White cell count 9.4, hemoglobin 10.2, platelets 201. Sodium 128, creatinine 1.0. Liver profile normal. Microbiology with again negative CSF cultures. ASSESSMENT AND DISCUSSION: Type 2 diabetes and meningitis, possible cerebritis or early brain absces s, ventriculitis was quite prominent. Currently on ampicillin, Rocephin and vancomycin. We will discontinue ampicillin and continue Roceph in and vancomycin alone. Duration of therapy will depend on the follow up MRI, may have to treat him for a total of 6 weeks assuming cerebritis and brain abscess will be 12/09/2017.
[2017-11-24] MEDS: risperiDONE 3 MG TAB PO SCH (20:25)
--- NOTE | 2017-11-24 20:28 | PRG ---
DATE OF SERVICE: 11/24/2017 SUBJECTIVE: Eliceo Brian has no complaints. OBJECTIVE: VITAL SIGNS: He is afebrile, heart rate 60, respiratory rate 16, oximetry is 97 on room air, blood p ressure 145/64. LUNGS: Clear. HEART: Regular rhythm. ABDOMEN: Soft. LABORATORY DATA: All cultures remain negative. White count 9.4, hemoglobin 10.2, platelets 201,000. Sodium 128, potassium 4.1, chloride 97, bicarbo jakob 24, BUN 21, creatinine 1.00. Intake and output is not recorded other than 2016, there is no uri ne output. IMPRESSION: 1. Meningitis. 2. Deconditioning. He needs to be up and out of bed twice a day for meals in a chair. He was ambul atory prior to his meningitis. He is clinically stable. There is probably no reason to continue the IV vancomycin. Statistically, this is most likely a Stre ptococcal meningitis. Consider discontinuing the vancomycin.
[2017-11-24] MEDS: Divalproex Sodium DR 500 MG TAB PO SCH (20:29)
[2017-11-24] MEDS: Simvastatin 20 MG TAB PO SCH (20:31)
[2017-11-25 04:52] LABS: #Basophils 0.1 thou/uL (0.0-0.2); #Eosinphils 0.2 thou/uL (0.0-0.7); #Lymphocytes 1.6 thou/uL (1.20-3.40); #Neutrophils 3.8 thou/uL (1.40-6.50); %Basophils 0.9 % (0.0-1.0); %Eosinophils 3.1 % (0.0-10.0); %Lymphocytes 23.8 % (21.0-51.0); %Monocytes 14.8 % (0.0-10.0); %Neutrophils 57.3 % (42.0-75.0); Hemoglobin 10.3 g/dL (14.0-18.0); Mean Corpuscular HGB CONC 31.7 g/dL (32.0-36.0); Mean Corpuscular Hemoglobin 24.4 pg (27.0-31.0); Mean Corpuscular Volume 76.8 fl (80.0-94.0); Mean Platelet Volume 9.9 fL (7.4-10.4); Platelet Count 213 thou/uL (130-400); RBC Distribution Width 13.2 % (11.5-14.5); Red Blood Cell (RBC) Count 4.22 mill/uL (4.70-6.10); White Blood Cell (WBC) Count 6.6 thou/uL (4.8-10.8)
[2017-11-25 04:56] LABS: Anion Gap 7 mmol/L (10-20); BUN (Urea Nitrogen) 15 mg/dL (8.4-25.7); Calc. Creatinine Clearance 101 mL/min (70-130); Calcium 8.1 mg/dL (7.8-10.44); Carbon Dioxide 25 mmol/L (23-31); Chloride 96 mmol/L (98-107); Estimated GFR-MDRD Greater than 90; Glucose 95 mg/dL (83-110); Potassium 4.1 mmol/L (3.5-5.1); Sodium 124 mmol/L (136-145)
[2017-11-25] MEDS: Levothyroxine Sodium 125 MCG TAB PO SCH (05:06)
[2017-11-25 08:34] LABS: Vancomycin, Trough 23.5 ug/mL
[2017-11-25] MEDS: Lisinopril 20 MG TAB PO SCH (09:07)
[2017-11-25] MEDS: Ferrous Sulfate 325 MG TAB PO SCH (09:07)
[2017-11-25] MEDS: Folic Acid 1 MG TAB PO SCH (09:07)
[2017-11-25] MEDS: Aspirin 81 mg Enteric Coated Tablet PO SCH (09:07)
[2017-11-25] MEDS: Cyanocobalamin (Vitamin B-12) 1,000 MCG TAB PO SCH (09:07)
[2017-11-25] MEDS: hydrALAZINE 25 MG TAB PO SCH ×3 (09:09→20:17)
[2017-11-25] MEDS: Fish Oil 1,000 MG CAP PO SCH (09:16)
[2017-11-25] MEDS: Ubidecarenone 50 MG CAP PO SCH (09:17)
[2017-11-25] MEDS: Sodium Chloride 0.9% 1,000 ML IV SCH ×2 (09:17→23:43)
[2017-11-25 09:37] LABS: Potassium, Urine 11.9 mmol/L
[2017-11-25] MEDS: cefTRIAXone\\ROCEPHIN 2 GM in Sodium Chloride 0.9% 100 ML IVPB SCH ×2 (10:35→20:19)
[2017-11-25] MEDS: Vancomycin HCl 1.5 GM in Sodium Chloride 0.9% 250 ML 300 ML IVPB SCH ×2 (11:53→20:19)
[2017-11-25] MEDS: Amlodipine 5 MG TAB PO SCH (11:55)
--- NOTE | 2017-11-25 15:00 | PRG ---
DATE OF SERVICE: 11/25/2017 SUBJECTIVE: Mr. Eliceo Brian continues to be stable. He has not made any improvement from a streng th standpoint. OBJECTIVE: VITAL SIGNS: He is afebrile, heart rate is 56, blood pressure 132/59 and oximetry is 100% on room ai r. LUNGS: Clear. HEART: Regular rhythm. ABDOMEN: Soft. IMPRESSION: Status post empiric treatment for bacterial meningitis. PLAN: Dr. Munson has recommended continuing the vancomycin. Appears to be stable from a pulmonary standpoint. He is on Rocephin as well. Cultures remain negati ve. Probably can be transferred off the telemetry unit.
[2017-11-25] MEDS: Divalproex Sodium DR 500 MG TAB PO SCH (20:17)
[2017-11-25] MEDS: Simvastatin 20 MG TAB PO SCH (20:18)
[2017-11-25] MEDS: risperiDONE 3 MG TAB PO SCH (20:18)
[2017-11-26] MEDS: Levothyroxine Sodium 125 MCG TAB PO SCH (04:56)
[2017-11-26] MEDS: Vancomycin HCl 1.5 GM in Sodium Chloride 0.9% 250 ML 300 ML IVPB SCH ×2 (08:38→22:26)
[2017-11-26] MEDS: Fish Oil 1,000 MG CAP PO SCH (08:38)
[2017-11-26] MEDS: Lisinopril 20 MG TAB PO SCH (08:38)
[2017-11-26] MEDS: hydrALAZINE 25 MG TAB PO SCH ×3 (08:39→21:06)
[2017-11-26] MEDS: Ferrous Sulfate 325 MG TAB PO SCH (08:39)
[2017-11-26] MEDS: Cyanocobalamin (Vitamin B-12) 1,000 MCG TAB PO SCH (08:40)
[2017-11-26] MEDS: Aspirin 81 mg Enteric Coated Tablet PO SCH (08:40)
[2017-11-26] MEDS: Amlodipine 5 MG TAB PO SCH (08:40)
[2017-11-26] MEDS: Folic Acid 1 MG TAB PO SCH (08:40)
[2017-11-26] MEDS: Ubidecarenone 50 MG CAP PO SCH (08:40)
[2017-11-26 10:36] VITALS: BMI 30.5
--- NOTE | 2017-11-26 11:03 | PRG ---
DATE OF SERVICE: 11/26/2017 Mr. Brian has no complaints. PHYSICAL EXAMINATION: VITAL SIGNS: He is afebrile, heart rate 53, blood pressure 126/74, respiratory rate 16, oximetry is 95. LUNGS: Lungs are clear. HEART: Regular rhythm. ABDOMEN: Abdomen is soft and nontender. LABORATORY DATA: There is no new lab today. IMPRESSION: Bacterial meningitis, clinically improving on empiric IV antimicrobial therapy. The plan will be for placement to continue antimicrobial therapy and physical therapy.
[2017-11-26] MEDS: cefTRIAXone\\ROCEPHIN 2 GM in Sodium Chloride 0.9% 100 ML IVPB SCH ×2 (11:53→21:00)
[2017-11-26] MEDS: Sodium Chloride 0.9% 1,000 ML IV SCH (15:04)
[2017-11-26] MEDS: risperiDONE 3 MG TAB PO SCH (22:26)
[2017-11-26] MEDS: Divalproex Sodium DR 500 MG TAB PO SCH (22:27)
[2017-11-26] MEDS: Simvastatin 20 MG TAB PO SCH (22:28)
[2017-11-27 06:01] LABS: Anion Gap 9 mmol/L (10-20); BUN (Urea Nitrogen) 12 mg/dL (8.4-25.7); Calc. Creatinine Clearance 94 mL/min (70-130); Calcium 8.3 mg/dL (7.8-10.44); Carbon Dioxide 25 mmol/L (23-31); Chloride 98 mmol/L (98-107); Estimated GFR-MDRD 89; Glucose 86 mg/dL (83-110); Sodium 128 mmol/L (136-145)
[2017-11-27] MEDS: Levothyroxine Sodium 125 MCG TAB PO SCH (06:27)
[2017-11-27] MEDS: Sodium Chloride 0.9% 1,000 ML IV SCH ×2 (06:36→08:48)
[2017-11-27] MEDS: hydrALAZINE 25 MG TAB PO SCH ×3 (08:33→20:38)
[2017-11-27] MEDS: Ferrous Sulfate 325 MG TAB PO SCH (08:35)
[2017-11-27] MEDS: Lisinopril 20 MG TAB PO SCH (08:35)
[2017-11-27] MEDS: Cyanocobalamin (Vitamin B-12) 1,000 MCG TAB PO SCH (08:36)
[2017-11-27] MEDS: Aspirin 81 mg Enteric Coated Tablet PO SCH (08:36)
[2017-11-27] MEDS: Amlodipine 5 MG TAB PO SCH (08:36)
[2017-11-27] MEDS: Folic Acid 1 MG TAB PO SCH (08:37)
[2017-11-27] MEDS: Fish Oil 1,000 MG CAP PO SCH (08:37)
[2017-11-27] MEDS: Ubidecarenone 50 MG CAP PO SCH (08:38)
[2017-11-27] MEDS: cefTRIAXone\\ROCEPHIN 2 GM in Sodium Chloride 0.9% 100 ML IVPB SCH ×2 (08:47→23:31)
--- NOTE | 2017-11-27 09:59 | SPC ---
SONOGRAPHIC GUIDED LEFT UPPER EXTREMITY PICC PLACEMENT: History: Meningitis. FINDINGS: After explaining the procedure and answering all questions, left upper extremity was prepped and drap ed in the usual sterile fashion. Sterile technique, buffered local anesthesia, sonographic guidance, and a 22 gauge needle were used to carefully access the left brachial vein. Standard technique was th en used to place the tip of a 5 Georgian dual-lumen PICC so that the tip lies at the level of the cavoa trial junction. Catheter was flushed and secured externally. The patient tolerated the procedure well and is returned in unchanged condition. Fluoro time: 0 seconds. IMPRESSION: Left upper extremity PICC place. Catheter is now ready for use. POS: [facility]
[2017-11-27] MEDS: Vancomycin HCl 1.5 GM in Sodium Chloride 0.9% 250 ML 300 ML IVPB SCH ×2 (10:36→20:39)
[2017-11-27] MEDS: risperiDONE 3 MG TAB PO SCH (20:39)
[2017-11-27] MEDS: Simvastatin 20 MG TAB PO SCH (20:39)
[2017-11-27] MEDS: Divalproex Sodium DR 500 MG TAB PO SCH (20:39)
[2017-11-27 23:19] VITALS: TEMP 97.8
[2017-11-28] MEDS: Levothyroxine Sodium 125 MCG TAB PO SCH (05:08)
[2017-11-28 08:31] VITALS: BP 149/67
[2017-11-28] MEDS: cefTRIAXone\\ROCEPHIN 2 GM in Sodium Chloride 0.9% 100 ML IVPB SCH (09:31)
[2017-11-28] MEDS: Lisinopril 20 MG TAB PO SCH (09:33)
[2017-11-28] MEDS: hydrALAZINE 25 MG TAB PO SCH (09:34)
[2017-11-28] MEDS: Ferrous Sulfate 325 MG TAB PO SCH (09:34)
[2017-11-28] MEDS: Aspirin 81 mg Enteric Coated Tablet PO SCH (09:35)
[2017-11-28] MEDS: Cyanocobalamin (Vitamin B-12) 1,000 MCG TAB PO SCH (09:35)
[2017-11-28] MEDS: Amlodipine 5 MG TAB PO SCH (09:35)
[2017-11-28] MEDS: Folic Acid 1 MG TAB PO SCH (09:36)
[2017-11-28] MEDS: Vancomycin HCl 1.5 GM in Sodium Chloride 0.9% 250 ML 300 ML IVPB SCH (09:48)
[2017-11-28] MEDS: Fish Oil 1,000 MG CAP PO SCH (09:48)
[2017-11-28] MEDS: Ubidecarenone 50 MG CAP PO SCH (09:48)
[2017-11-28] MEDS: Sodium Chloride 0.9% 1,000 ML IV SCH ×2 (09:49→09:58)
[2017-11-28] MEDS ORDERED: Milk Of Magnesia 30 ML UDCUP PO PRN (11:09)
== END 2017-11-28 16:45 | DRG 94 ==
LOC: ERS 04:09 → IMCU/EMU 11:18 → CCU 11-19 11:02 → 2NO 11-21 12:22 → T4-B 11-25 23:39
PROVIDERS: ADMIT Internal Medicine; ATTEND Internal Medicine
PROC: 009U3ZX Drainage of Spinal Canal, Percutaneous Approach, Diagnostic (ICD-10-PCS; principal; 2017-11-18)
PROC: 02HV33Z Insertion of Infusion Device into Superior Vena Cava, Percutaneous Approach (ICD-10-PCS; 2017-11-27)
DX: G00.9 Bacterial meningitis, unspecified (principal); G93.41 Metabolic encephalopathy; E87.1 Hypo-osmolality and hyponatremia; E11.9 Type 2 diabetes mellitus without complications; E03.9 Hypothyroidism, unspecified; I10 Essential (primary) hypertension; F31.9 Bipolar disorder, unspecified; E78.5 Hyperlipidemia, unspecified; E87.6 Hypokalemia; F41.9 Anxiety disorder, unspecified; Z79.82 Long term (current) use of aspirin; Z79.899 Other long term (current) drug therapy
CPT/HCPCS: 36415; 36416; 36569; 51701; 62270; 70553; 71045; 80048; 80053; 80202; 81003; 81015; 82436; 82553; 82945; 83605; 84133; 84157; 84300; 84484; 85007; 85025; 85027; 85060; 87070; 87086; 87205; 89051; 93005; 96365; 96366; 96375; A4216; C1751; G8978-GP-CM; G8979-GP-CK; G8996-GN-CJ; G8997-GN-CI; J0131; J0290; J0696; J1100; J2001; J3370; J7050

== ENCOUNTER 2017-12-05 14:07 | Inpatient (IN) | payer MEDICARE, OTHER ==
[2017-12-05 15:29] LABS: #Eosinphils 0.1 thou/uL (0.0-0.7); #Lymphocytes 0.9 thou/uL (1.20-3.40); #Monocytes 0.8 thou/uL (0.11-0.59); #Neutrophils 5.9 thou/uL (1.40-6.50); %Basophils 0.4 % (0.0-1.0); %Eosinophils 0.9 % (0.0-10.0); %Lymphocytes 11.9 % (21.0-51.0); %Monocytes 10.5 % (0.0-10.0); %Neutrophils 76.4 % (42.0-75.0); Mean Corpuscular HGB CONC 32.4 g/dL (32.0-36.0); Mean Corpuscular Hemoglobin 24.2 pg (27.0-31.0); Mean Corpuscular Volume 74.7 fl (80.0-94.0); Mean Platelet Volume 9.1 fL (7.4-10.4); Platelet Count 200 thou/uL (130-400); RBC Distribution Width 14.2 % (11.5-14.5); Red Blood Cell (RBC) Count 3.73 mill/uL (4.70-6.10); White Blood Cell (WBC) Count 7.7 thou/uL (4.8-10.8)
[2017-12-05 15:43] LABS: Hypochromia SLIGHT = 6-15 cells (100X) (0-5/hpf); MDiff Complete? YES; Microcytosis SLIGHT = 6-15 cells (100X) (0-5/hpf); Ovalocytes SLIGHT = 2-5 cells (100X) (0-1/hpf); PLT Morphology Comment Appears Adequate; Polychromasia SLIGHT = 2-3 cells (100X) (0-2/hpf); Schistocytes SLIGHT = 2-5 cells (100X) (0-1/hpf); Target Cells SLIGHT = 2-5 cells (100X) (0-1/hpf)
[2017-12-05 15:44] LABS: Vancomycin, Random 33.6 ug/mL (See Comment)
[2017-12-05 15:47] LABS: ALT (SGPT) 8 U/L (8-55); AST (SGOT) 12 U/L (5-34); Albumin 2.9 g/dL (3.4-4.8); Alkaline Phosphatase 42 U/L (40-150); Anion Gap 16 mmol/L (10-20); BUN (Urea Nitrogen) 44 mg/dL (8.4-25.7); Bilirubin, Total 0.2 mg/dL (0.2-1.2); Calc. Creatinine Clearance 0 mL/min (70-130); Calcium 8.9 mg/dL (7.8-10.44); Carbon Dioxide 20 mmol/L (23-31); Chloride 105 mmol/L (98-107); Estimated GFR-MDRD 9; Globulin 2.7 g/dL (2.4-3.5); Glucose 106 mg/dL (83-110); Potassium 5.2 mmol/L (3.5-5.1); Protein, Total 5.6 g/dL (5.8-8.1); Sodium 136 mmol/L (136-145)
--- NOTE | 2017-12-05 15:49 | RAD ---
PORTABLE CHEST 12/05/17 PROVIDED CLINICAL HISTORY: Cough. FINDINGS: Comparison 11/18/17. The cardiac and mediastinal silhouette is unchanged in appearance. Vascular calcification involves th e aortic arch. Surgical clips project over the left neck. The left upper extremity PICC line is noted . No focal consolidation, pleural fluid or pneumothorax apparent. IMPRESSION: No evidence for an acute cardiopulmonary process. POS: [facility]
[2017-12-05 15:50] LABS: Troponin I 0.026 ng/mL (< 0.028)
[2017-12-05] MEDS ORDERED: Sodium Bicarbonate 75 MEQ in Sodium Chloride 0.45% 1,000 ML IV SCH (16:45)
[2017-12-05] MEDS ORDERED: cefTRIAXone\\ROCEPHIN 2 GM in Sodium Chloride 0.9% 100 ML IVPB SCH (16:45)
[2017-12-05 19:04] LABS: Troponin I 0.023 ng/mL (< 0.028)
[2017-12-05 21:23] LABS: Troponin I 0.027 ng/mL (< 0.028)
--- NOTE | 2017-12-06 08:42 | ULT ---
BILATERAL RENAL ULTRASOUND: Date: 12/05/17 PROVIDED CLINICAL HISTORY: Acute renal failure. FINDINGS: Right kidney measures about 13.3 x 4.4 cm and demonstrates no evidence for hydronephrosis or mass. Sm all renal cyst and small echogenic focus involving the right kidney, possibly reflecting nonobstructi ng stone. Left kidney measures about 13.3 x 4.4 cm and demonstrates no evidence for hydronephrosis or mass. The urinary bladder demonstrates apparent wall thickening which may be at least partially on the basi s of incomplete distention. Bilateral ureteral jets are seen. IMPRESSION: 1. No evidence for hydronephrosis. 2. Possible bladder wall thickening versus nondistention. POS: [facility]
[2017-12-06] MEDS ORDERED: Prevnar 13-Val Conj/PF 0.5 ML SYRINGE IM ONE (09:00)
[2017-12-06] MEDS ORDERED: FLU VACC TS2017-18 (>65YR) 0.5 ML SYRINGE IM ONE (09:00)
[2017-12-06 12:12] LABS: #Eosinphils 0.1 thou/uL (0.0-0.7); #Lymphocytes 0.9 thou/uL (1.20-3.40); #Monocytes 0.7 thou/uL (0.11-0.59); #Neutrophils 5.2 thou/uL (1.40-6.50); %Basophils 0.7 % (0.0-1.0); %Eosinophils 1.7 % (0.0-10.0); %Lymphocytes 12.6 % (21.0-51.0); %Monocytes 10.5 % (0.0-10.0); %Neutrophils 74.6 % (42.0-75.0); Hemoglobin 9.2 g/dL (14.0-18.0); Mean Corpuscular HGB CONC 32.1 g/dL (32.0-36.0); Mean Corpuscular Hemoglobin 23.9 pg (27.0-31.0); Mean Corpuscular Volume 74.4 fl (80.0-94.0); Mean Platelet Volume 9.3 fL (7.4-10.4); Platelet Count 212 thou/uL (130-400); RBC Distribution Width 14.2 % (11.5-14.5); Red Blood Cell (RBC) Count 3.86 mill/uL (4.70-6.10)
[2017-12-06 12:34] LABS: Anion Gap 16 mmol/L (10-20); BUN (Urea Nitrogen) 46 mg/dL (8.4-25.7); Calc. Creatinine Clearance 13 mL/min (70-130); Calcium 9.6 mg/dL (7.8-10.44); Carbon Dioxide 22 mmol/L (23-31); Chloride 103 mmol/L (98-107); Estimated GFR-MDRD 9; Glucose 138 mg/dL (83-110); Potassium 5.1 mmol/L (3.5-5.1); Sodium 136 mmol/L (136-145)
--- NOTE | 2017-12-06 13:31 | CON ---
DATE OF CONSULTATION: 12/06/2017 CONSULTING PHYSICIAN: Dr. Morgan. REASON FOR CONSULTATION: Acute kidney injury. REASON FOR ADMISSION: Abdominal abscess. HISTORY OF PRESENT ILLNESS: A 77-year-old male with history of hypertension, hyperlipidemia, chronic kidney disease, type 2 diabetes, and recent meningitis, was at the rehab for strengthening, was found to have acute kidney injury most likely from vancomycin toxicity and he has also mild acidosis and hyperkalemia, was transferred over to the acute hospital. The patient is feeling slightly better. He was started on bicarbonate drip yesterday. No fever or chills. No nausea, vomiting reported to me. PAST MEDICAL HISTORY: Hypertension, type 2 diabetes, hyperlipidemia, recent meningitis. PAST SURGICAL HISTORY: Kidney removal, thyroidectomy. HOME MEDICATIONS: Not available. ALLERGIES: No known drug allergies. SOCIAL HISTORY: No smoking, alcohol or drugs. FAMILY HISTORY: No significant history of kidney disease. REVIEW OF SYSTEMS: The following complete review of systems was negative, unless otherwise mentioned in the HPI or below: Constitutional: Weight loss or gain, ability to conduct usual activities. Skin: Rash, itching. Eyes: Double vision, pain. ENT/Mouth: Nose bleeding, neck stiffness, pain, tenderness. Cardiovascular: Palpitations, dyspnea on exertion, orthopnea. Respiratory: Shortness of breath, wheezing, cough, hemoptysis, fever or night sweats. Gastrointestinal: Poor appetite, abdominal pain, heartburn, nausea, vomiting, constipation, or diarrhea. Genitourinary: Urgency, frequency, dysuria, nocturia. Musculoskeletal: Pain, swelling. Neurologic/Psychiatric: Anxiety, depression. Allergy/Immunologic: Skin rash, bleeding tendency. PHYSICAL EXAMINATION: GENERAL: This is a well-built male in no apparent distress. VITAL SIGNS: Temperature 97, pulse 73, respiratory 18, blood pressure 138/65. Musculoskeletal : No tenderness, No edema HEENT: Atraumatic normocephalic Neck: Supple Cardiovascular: S1S2 heard, Rate and rhythm regular Respiratory: Clear to auscultation Gastrointestinal: Abdomen is soft Dermatologic : No skin rash Neurologic: Alert and awake and oriented X3 No focal neurologic deficits. Moving all the extremities. Psychiatric: Mood and affect normal LABORATORY DATA: Potassium is 5.2, BUN is 44, creatinine is 1.3, hemoglobin is 9.7. ASSESSMENT AND PLAN: 1. Acute kidney injury. Plan is to start on bicarbonate drip and recheck labs today. 2. Hyperkalemia. 3. Acidosis, mild. Continue bicarbonate. 4. Anemia. 5. Vancomycin toxicity. Hold vancomycin and monitor the level. Plan is to avoid nephrotoxins, renally dose all the medicines. Continue IV fluids with half NS and bicarbonate drip. We will continue to follow. MTDD
[2017-12-06] MEDS ORDERED: Dextrose 50% Abboject 50 ML SYRINGE IVP PRN (14:19)
[2017-12-06] MEDS ORDERED: Dextrose 5% in Water 1,000 ML IV PRN (14:19)
[2017-12-06] MEDS ORDERED: Insulin Regular 300 UNITS/3 ML VIAL SC PRN ×2 (14:19)
[2017-12-06] MEDS ORDERED: Senokot 8.6 MG TAB PO PRN (14:43)
[2017-12-06] MEDS ORDERED: Ondansetron ODT 4 MG TAB PO PRN (14:44)
[2017-12-06] MEDS ORDERED: Loperamide HCl 2 MG CAP PO PRN (14:45)
[2017-12-06] MEDS ORDERED: Milk Of Magnesia 30 ML UDCUP PO PRN (14:45)
[2017-12-06] MEDS ORDERED: guaiFENesin 100 MG/5 ML UDCUP PO PRN (14:47)
[2017-12-06] MEDS ORDERED: Artificial Tear Sol 15 ML BOT EA EYE PRN (14:48)
[2017-12-06] MEDS ORDERED: diphenhydrAMINE 25 MG CAP PO PRN (14:48)
[2017-12-06] MEDS ORDERED: cloNIDine 0.1 MG TAB PO PRN (14:49)
[2017-12-06] MEDS ORDERED: Calcium Carbonate 500 MG ChewTAB PO PRN (14:50)
[2017-12-06] MEDS ORDERED: Cepastat Lozenges 1 LOZ PO PRN (14:51)
[2017-12-06] MEDS ORDERED: Bisacodyl 10 MG SUPP PR PRN (14:51)
[2017-12-06] MEDS ORDERED: Acetaminophen 500 MG TAB PO PRN (14:52)
[2017-12-06] MEDS: Sodium Chloride 0.9% 1,000 ML IV SCH ×2 (15:10→22:00)
[2017-12-06] MEDS: hydrALAZINE 25 MG TAB PO SCH ×2 (15:19→21:41)
[2017-12-06 15:34] LABS: Bilirubin Negative (Negative); Blood, Urine Negative (Negative); Clarity CLEAR (Clear); Glucose, Urine (Dipstick) Negative (Negative); Leukocyte Negative (Negative); Nitrite Negative (Negative); Protein, Urine (Dipstick) 30 mg/dL (Neg-Trace); Specific Gravity, Urine 1.012 (1.002-1.036); Urobilinogen 0.2 mg/dL (0.2-1.0); pH, Urine 7.5 (5.0-9.0)
[2017-12-06 15:40] LABS: Bacteria/HPF None Seen HPF (None Seen); Hyaline Casts/LPF 0-3 HYALINE CAST LPF (0-3 Hyaline); Squamous Epithelial None Seen HPF (0-3); WBC/HPF 0-3 HPF (0-3)
[2017-12-06] MEDS: Atorvastatin Calcium 10 MG TAB PO SCH (21:41)
[2017-12-06] MEDS: Divalproex Sodium 250 MG (DR) TAB PO SCH (21:42)
[2017-12-06] MEDS: risperiDONE 3 MG TAB PO SCH (21:42)
--- NOTE | 2017-12-06 21:44 | HP ---
DATE OF ADMISSION: 12/05/2017 REASON AND CHIEF COMPLAINT: Acute renal failure. HISTORY OF PRESENT ILLNESS: Mr. Brian is a 77-year-old Afro-[place] male with past medical histor y of hypertension and hypothyroidism, recently diagnosed with meningitis, who was at the [facility] and getting IV antibiotics with Rocephin and vancomycin, was found to have acute renal failure. His vancomycin trough levels were very high and he was found to have acute renal failure as well an d his renal function gotten worse in the last 3 days. Home Care Consultant was consulted who ordered half no rmal saline with bicarb, but [facility] did not had, so the patient was sent to the emergency room. In the ER, the patient was evaluated and found to be alert, awake and oriented x4, did not have any specific complaints of shortness of breath or chest pain, nausea, or vomiting. No headache, no dizzi ness. The patient did have acute renal failure. He was started on IV fluids and admitted for furthe r evaluation and management. Vancomycin random level was 33. PAST MEDICAL HISTORY: 1. Hypertension. 2. Hypothyroidism. 3. Anemia, chronic. 4. Bipolar disorder. 5. Diabetes mellitus. 6. History of colon diverticulosis. 7. History of depression and anxiety. 8. History of atrial flutter, status post ablation. PAST SURGICAL HISTORY: Status post thyroidectomy, partial. CURRENT MEDICATIONS: The patient is on Tylenol p.r.n., amlodipine 5 mg daily, aspirin 81 mg daily, L ipitor 10 mg daily, ceftriaxone 2 grams IV piggyback b.i.d., vitamin D 5000 units daily, vitamin B12 daily 1000 mcg, fish oil 1000 mg daily, ferrous sulfate 325 mg daily, Depakote 750 mg at bedtime, fol ic acid 1 mg daily, hydralazine 100 mg t.i.d., levothyroxine 125 mcg daily, metoprolol 50 mg daily, R isperdal 3 mg at bedtime. He was on vancomycin 1.5 grams IV piggyback b.i.d. He is also on some p.r .n. medications, which include milk of magnesia p.r.n., loperamide p.r.n., lactulose p.r.n., Benadryl p.r.n. and clonidine p.r.n. ALLERGIES: NKDA. FAMILY HISTORY: Nothing contributory. SOCIAL HISTORY: The patient lives currently at the inpatient rehabilitation. No history of smoking. No history of alcohol intake. REVIEW OF SYSTEMS: Cardiovascular: No chest pain. No shortness of breath. Respiratory: No fever or cough. Gastrointestinal: No nausea, vomiting or abdominal pain. Genitourinary: No distension. Central Nervous System: No headache, no dizziness. PHYSICAL EXAMINATION: GENERAL: The patient is alert, awake and oriented x3. VITAL SIGNS: Temperature 98, pulse 70, respiration 20 and blood pressure 140/80. HEENT: Head is normocephalic and atraumatic. Pupils are equal and reactive to light. Nasopharynx i s pale and dry. Hard and soft palate, no lesions. SKIN: Skin turgor decreased. NECK: Supple. No JVD. LUNGS: Bilateral air entry. No rales, no rhonchi. HEART: S1 and S2 regular. ABDOMEN: Soft. No distention, no tenderness. Normal bowel sounds. RECTAL: Deferred. CENTRAL NERVOUS SYSTEM: No focal neurological deficit. EXTREMITIES: No edema. LABORATORY AND X-RAY FINDINGS: CBC shows WBC of 7.7, hemoglobin 9, hematocrit 27 and platelets 200. Metabolic panel: Sodium 136, potassium 5, chloride 103, CO2 of 20, urea nitrogen 16, BUN 46, creati nine 7.4, GFR 9 and blood glucose 138. Vancomycin random level 33.6. EKG shows normal sinus rhythm. No acute ST-T wave changes seen. Chest x-ray negative. ASSESSMENT: 1. Acute kidney injury, possibly secondary to vancomycin toxicity. 2. Mild metabolic acidosis and hyperkalemia secondary to #1. 3. Meningitis, on antibiotics. 4. Hypertension. 5. Anemia, chronic. 6. Hypothyroidism. 7. Bipolar disorder. PLAN: 1. Vital signs q.4 hours. 2. Activity: As tolerated. 3. Allergies: NKDA. 4. Diet: Renal and ADA. 5. IV fluids half normal with bicarbonate 750 mL per hour. 6. Continue home medications. 7. Rocephin 2 grams IV piggyback b.i.d. 8. Hold vancomycin. 9. Accu-Cheks a.c. and at bedtime. 10. Sliding scale mild with regular insulin.
[2017-12-06] MEDS: cefTRIAXone\\ROCEPHIN 2 GM in Sodium Chloride 0.9% 100 ML IVPB SCH (21:59)
[2017-12-07] MEDS: Sodium Chloride 0.9% 1,000 ML IV SCH ×3 (05:41→23:16)
[2017-12-07 05:42] LABS: #Eosinphils 0.1 thou/uL (0.0-0.7); #Lymphocytes 0.9 thou/uL (1.20-3.40); #Monocytes 0.7 thou/uL (0.11-0.59); #Neutrophils 3.3 thou/uL (1.40-6.50); %Basophils 0.7 % (0.0-1.0); %Eosinophils 2.4 % (0.0-10.0); %Lymphocytes 18.2 % (21.0-51.0); %Monocytes 13.2 % (0.0-10.0); %Neutrophils 65.5 % (42.0-75.0); Hemoglobin 7.8 g/dL (14.0-18.0); Mean Corpuscular HGB CONC 31.4 g/dL (32.0-36.0); Mean Corpuscular Hemoglobin 23.8 pg (27.0-31.0); Mean Corpuscular Volume 75.8 fl (80.0-94.0); Mean Platelet Volume 9.8 fL (7.4-10.4); Platelet Count 180 thou/uL (130-400); Red Blood Cell (RBC) Count 3.29 mill/uL (4.70-6.10); White Blood Cell (WBC) Count 5.1 thou/uL (4.8-10.8)
[2017-12-07 05:51] LABS: Vancomycin, Random 31.4 ug/mL (See Comment)
[2017-12-07 05:52] LABS: Anion Gap 13 mmol/L (10-20); BUN (Urea Nitrogen) 48 mg/dL (8.4-25.7); Calc. Creatinine Clearance 13 mL/min (70-130); Carbon Dioxide 22 mmol/L (23-31); Chloride 107 mmol/L (98-107); Estimated GFR-MDRD 9; Sodium 137 mmol/L (136-145)
[2017-12-07 05:53] LABS: Calcium 8.5 mg/dL (7.8-10.44); Glucose 69 mg/dL (83-110)
[2017-12-07] MEDS ORDERED: Levothyroxine Sodium 125 MCG TAB PO SCH (06:00)
[2017-12-07 06:12] LABS: Free T4 (Free Thyroxine) 0.83 ng/dL (0.70-1.48); Thyroid Stimulating Hormone 22.5753 uIU/mL (0.35-4.94)
[2017-12-07] MEDS: Ubidecarenone 50 MG CAP PO SCH (08:09)
[2017-12-07] MEDS: Folic Acid 1 MG TAB PO SCH (08:10)
[2017-12-07] MEDS: Cyanocobalamin (Vitamin B-12) 1,000 MCG TAB PO SCH (08:10)
[2017-12-07] MEDS: Multivitamin W/ Minerals 1 TAB PO SCH (08:10)
[2017-12-07] MEDS: Amlodipine 5 MG TAB PO SCH (08:10)
[2017-12-07] MEDS: Fish Oil 1,000 MG CAP PO SCH (08:10)
[2017-12-07] MEDS: hydrALAZINE 25 MG TAB PO SCH ×3 (08:10→21:03)
[2017-12-07] MEDS: Ferrous Sulfate 325 MG TAB PO SCH (08:11)
[2017-12-07] MEDS: cefTRIAXone\\ROCEPHIN 2 GM in Sodium Chloride 0.9% 100 ML IVPB SCH ×2 (10:05→21:14)
--- NOTE | 2017-12-07 11:07 | PRG ---
DATE OF SERVICE: 12/07/2017 SUBJECTIVE: This is a 77-year-old gentleman being seen for acute kidney injury. Denies any nausea, vomiting or chest pain. PHYSICAL EXAMINATION: GENERAL: Patient is awake, alert. VITAL SIGNS: Afebrile, pulse 67, breathing at 16, blood pressure 129/60. HEAD/NECK: Normocephalic. Atraumatic. EYES: EOMI. No deformity. EARS: Clear. No ulcers. NOSE: Intact. No lesions. MOUTH: Clear. No discharge. THROAT: Clear. No exudate. LUNGS: Clear. No crackles. CARDIAC: S1, S2. No rub. ABDOMEN: Benign. BS+. GENITALIA/RECTUM: Bustos absent. BACK/EXTREMITIES: Edema 0+ Ulcer- NEUROLOGICAL: Alert and motor intact. SKIN: Rash- Bruise- LYMPHATICS: Edema- Ulcer- LABORATORY DATA: Show potassium 5, creatinine 7.4. ASSESSMENT AND PLAN: 1. Chronic kidney disease stage 5 with acute kidney injury, nonoliguric. No indication of dialysis. 2. Hypertension, stable. 3. Anemia, stable. 4. Medications based on glomerular filtration rate are appropriate. No indication for dialysis at t his time.
[2017-12-07] MEDS: Divalproex Sodium 250 MG (DR) TAB PO SCH (21:02)
[2017-12-07] MEDS: Atorvastatin Calcium 10 MG TAB PO SCH (21:02)
[2017-12-07] MEDS: risperiDONE 3 MG TAB PO SCH (21:03)
[2017-12-08] MEDS: Levothyroxine 150 MCG TAB PO SCH (05:07)
[2017-12-08 05:34] LABS: #Basophils 0.1 thou/uL (0.0-0.2); #Eosinphils 0.2 thou/uL (0.0-0.7); #Monocytes 0.7 thou/uL (0.11-0.59); #Neutrophils 3.2 thou/uL (1.40-6.50); %Basophils 1.2 % (0.0-1.0); %Eosinophils 3.5 % (0.0-10.0); %Neutrophils 62.3 % (42.0-75.0); Hemoglobin 8.1 g/dL (14.0-18.0); Mean Corpuscular HGB CONC 32.2 g/dL (32.0-36.0); Mean Corpuscular Hemoglobin 24.6 pg (27.0-31.0); Mean Corpuscular Volume 76.4 fl (80.0-94.0); Mean Platelet Volume 10.3 fL (7.4-10.4); Platelet Count 157 thou/uL (130-400); RBC Distribution Width 14.1 % (11.5-14.5); Red Blood Cell (RBC) Count 3.31 mill/uL (4.70-6.10); White Blood Cell (WBC) Count 5.2 thou/uL (4.8-10.8)
[2017-12-08 05:41] LABS: Anion Gap 16 mmol/L (10-20); BUN (Urea Nitrogen) 47 mg/dL (8.4-25.7); Calc. Creatinine Clearance 14 mL/min (70-130); Calcium 8.4 mg/dL (7.8-10.44); Carbon Dioxide 20 mmol/L (23-31); Chloride 107 mmol/L (98-107); Estimated GFR-MDRD 9; Glucose 66 mg/dL (83-110); Potassium 5.1 mmol/L (3.5-5.1); Sodium 138 mmol/L (136-145)
[2017-12-08] MEDS: Sodium Chloride 0.9% 1,000 ML IV SCH ×2 (06:44→16:25)
[2017-12-08] MEDS: Amlodipine 5 MG TAB PO SCH (09:28)
[2017-12-08] MEDS: Cyanocobalamin (Vitamin B-12) 1,000 MCG TAB PO SCH (09:29)
[2017-12-08] MEDS: Folic Acid 1 MG TAB PO SCH (09:29)
[2017-12-08] MEDS: Multivitamin W/ Minerals 1 TAB PO SCH (09:29)
[2017-12-08] MEDS: Ferrous Sulfate 325 MG TAB PO SCH (09:29)
[2017-12-08] MEDS: Ubidecarenone 50 MG CAP PO SCH (09:29)
[2017-12-08] MEDS: Fish Oil 1,000 MG CAP PO SCH (09:29)
[2017-12-08] MEDS: hydrALAZINE 25 MG TAB PO SCH ×3 (09:34→20:54)
--- NOTE | 2017-12-08 09:37 | PRG ---
DATE OF SERVICE: 12/08/2017 SUBJECTIVE: This is a 77-year-old gentleman being seen for acute kidney injury. The patient denies any nausea, vomiting or chest pain. PHYSICAL EXAMINATION: GENERAL: Patient is awake, alert. VITAL SIGNS: Afebrile, pulse 84, breathing at 16, blood pressure 135/84. HEAD/NECK: Normocephalic. Atraumatic. EYES: EOMI. No deformity. EARS: Clear. No ulcers. NOSE: Intact. No lesions. MOUTH: Clear. No discharge. THROAT: Clear. No exudate. LUNGS: Clear. No crackles. CARDIAC: S1, S2. No rub. ABDOMEN: Benign. BS+. GENITALIA/RECTUM: Bustos absent. BACK/EXTREMITIES: Edema 0+ Ulcer- NEUROLOGICAL: Alert and motor intact. SKIN: Rash- Bruise- LYMPHATICS: Edema- Ulcer- LABORATORY DATA: Show hemoglobin 8.1, creatinine 6.8. ASSESSMENT AND RECOMMENDATIONS: 1. Acute kidney injury with chronic kidney disease stage 5, improved. 2. Hypertension, stable. 3. Anemia, stable. 4. Hyperkalemia, stable. No indication for dialysis. Continue hydration.
[2017-12-08] MEDS: cefTRIAXone\\ROCEPHIN 2 GM in Sodium Chloride 0.9% 100 ML IVPB SCH ×2 (10:41→21:31)
[2017-12-08] MEDS: Divalproex Sodium 250 MG (DR) TAB PO SCH (20:53)
[2017-12-08] MEDS: Atorvastatin Calcium 10 MG TAB PO SCH (20:54)
[2017-12-08] MEDS: risperiDONE 3 MG TAB PO SCH (20:57)
[2017-12-09] MEDS: Sodium Chloride 0.9% 1,000 ML IV SCH ×4 (01:31→23:07)
[2017-12-09] MEDS: Levothyroxine 150 MCG TAB PO SCH (06:28)
[2017-12-09 08:23] LABS: Anion Gap 14 mmol/L (10-20); BUN (Urea Nitrogen) 46 mg/dL (8.4-25.7); Calc. Creatinine Clearance 15 mL/min (70-130); Calcium 8.5 mg/dL (7.8-10.44); Carbon Dioxide 18 mmol/L (23-31); Chloride 110 mmol/L (98-107); Estimated GFR-MDRD 10; Glucose 76 mg/dL (83-110); Potassium 5.3 mmol/L (3.5-5.1); Sodium 137 mmol/L (136-145)
--- NOTE | 2017-12-09 08:24 | PRG ---
DATE OF SERVICE: 12/09/2017 SUBJECTIVE: This is a 77-year-old gentleman being seen for acute kidney injury. The patient denies any nausea, vomiting, or chest pain. PHYSICAL EXAMINATION: GENERAL: Patient is awake, alert. VITAL SIGNS: Afebrile, pulse 74, breathing 16, blood pressure 134/61. HEAD/NECK: Normocephalic. Atraumatic. EYES: EOMI. No deformity. EARS: Clear. No ulcers. NOSE: Intact. No lesions. MOUTH: Clear. No discharge. THROAT: Clear. No exudate. LUNGS: Clear. No crackles. CARDIAC: S1, S2. No rub. ABDOMEN: Benign. BS+. GENITALIA/RECTUM: Bustos absent. BACK/EXTREMITIES: Edema 0+ Ulcer- NEUROLOGICAL: Alert and motor intact. SKIN: Rash- Bruise- LYMPHATICS: Edema- Ulcer- LABORATORY DATA: Show hemoglobin 8.1, creatinine is pending. ASSESSMENT AND PLAN: 1. Acute kidney injury with CKD, nonoliguric. Follow renal function closely. 2. Hypertension, stable. 3. Anemia, stable. 4. Medications based on glomerular filtration rate are appropriate.
[2017-12-09] MEDS: hydrALAZINE 25 MG TAB PO SCH ×3 (09:59→21:54)
[2017-12-09] MEDS: Cyanocobalamin (Vitamin B-12) 1,000 MCG TAB PO SCH (09:59)
[2017-12-09] MEDS: Folic Acid 1 MG TAB PO SCH (09:59)
[2017-12-09] MEDS: Fish Oil 1,000 MG CAP PO SCH (10:00)
[2017-12-09] MEDS: Ferrous Sulfate 325 MG TAB PO SCH (10:00)
[2017-12-09] MEDS: Amlodipine 5 MG TAB PO SCH (10:00)
[2017-12-09] MEDS: cefTRIAXone\\ROCEPHIN 2 GM in Sodium Chloride 0.9% 100 ML IVPB SCH ×2 (10:00→21:54)
[2017-12-09] MEDS: Ubidecarenone 50 MG CAP PO SCH (10:00)
[2017-12-09] MEDS: Multivitamin W/ Minerals 1 TAB PO SCH (10:00)
[2017-12-09] MEDS: risperiDONE 3 MG TAB PO SCH (21:55)
[2017-12-09] MEDS: Atorvastatin Calcium 10 MG TAB PO SCH (21:59)
[2017-12-09] MEDS: Divalproex Sodium 250 MG (DR) TAB PO SCH (21:59)
[2017-12-10] MEDS: Levothyroxine 150 MCG TAB PO SCH (05:12)
[2017-12-10 05:52] LABS: ALT (SGPT) 8 U/L (8-55); AST (SGOT) 13 U/L (5-34); Albumin 2.7 g/dL (3.4-4.8); Alkaline Phosphatase 35 U/L (40-150); Anion Gap 14 mmol/L (10-20); BUN (Urea Nitrogen) 43 mg/dL (8.4-25.7); Bilirubin, Total Less than 0.2 mg/dL (0.2-1.2); Calc. Creatinine Clearance 17 mL/min (70-130); Calcium 8.2 mg/dL (7.8-10.44); Carbon Dioxide 17 mmol/L (23-31); Chloride 112 mmol/L (98-107); Estimated GFR-MDRD 11; Globulin 3.1 g/dL (2.4-3.5); Glucose 61 mg/dL (83-110); Potassium 4.9 mmol/L (3.5-5.1); Protein, Total 5.8 g/dL (5.8-8.1); Sodium 138 mmol/L (136-145)
[2017-12-10] MEDS: hydrALAZINE 25 MG TAB PO SCH ×3 (08:38→21:27)
[2017-12-10] MEDS: Sodium Chloride 0.9% 1,000 ML IV SCH ×3 (08:40→18:20)
[2017-12-10] MEDS: Amlodipine 5 MG TAB PO SCH (08:40)
[2017-12-10] MEDS: cefTRIAXone\\ROCEPHIN 2 GM in Sodium Chloride 0.9% 100 ML IVPB SCH ×2 (09:50→21:29)
--- NOTE | 2017-12-10 09:54 | PRG ---
DATE OF SERVICE: 12/10/2017 SUBJECTIVE: A 77-year-old gentleman being seen for acute kidney injury. The patient denies any naus ea, vomiting, or chest pain. PHYSICAL EXAMINATION: GENERAL: Patient is awake, alert. VITAL SIGNS: Afebrile, pulse 71, breathing at 16, blood pressure 132/72. HEAD/NECK: Normocephalic. Atraumatic. EYES: EOMI. No deformity. EARS: Clear. No ulcers. NOSE: Intact. No lesions. MOUTH: Clear. No discharge. THROAT: Clear. No exudate. LUNGS: Clear. No crackles. CARDIAC: S1, S2. No rub. ABDOMEN: Benign. BS+. GENITALIA/RECTUM: Bustos absent. BACK/EXTREMITIES: Edema 0+ Ulcer- NEUROLOGICAL: Alert and motor intact. SKIN: Rash- Bruise- LYMPHATICS: Edema- Ulcer- LABORATORY DATA: Show hemoglobin 8.1, creatinine 5.97. ASSESSMENT AND RECOMMENDATIONS: 1. Acute kidney injury, improved. 2. Hypertension, stable. 3. Anemia, stable. 4. Metabolic acidosis, stable. 5. Hyperkalemia, improved. No indication for dialysis at this time.
[2017-12-10] MEDS: Multivitamin W/ Minerals 1 TAB PO SCH (10:28)
[2017-12-10] MEDS: Ubidecarenone 50 MG CAP PO SCH (10:28)
[2017-12-10] MEDS: Fish Oil 1,000 MG CAP PO SCH (10:29)
[2017-12-10] MEDS: Ferrous Sulfate 325 MG TAB PO SCH (10:29)
[2017-12-10] MEDS: Folic Acid 1 MG TAB PO SCH (10:29)
[2017-12-10] MEDS: Cyanocobalamin (Vitamin B-12) 1,000 MCG TAB PO SCH (10:29)
[2017-12-10] MEDS: Divalproex Sodium 250 MG (DR) TAB PO SCH (21:27)
[2017-12-10] MEDS: risperiDONE 3 MG TAB PO SCH (21:27)
[2017-12-10] MEDS: Atorvastatin Calcium 10 MG TAB PO SCH (21:28)
[2017-12-11 05:33] LABS: #Eosinphils 0.2 thou/uL (0.0-0.7); #Lymphocytes 1.3 thou/uL (1.20-3.40); #Monocytes 0.5 thou/uL (0.11-0.59); #Neutrophils 2.4 thou/uL (1.40-6.50); %Eosinophils 3.5 % (0.0-10.0); %Monocytes 12.1 % (0.0-10.0); %Neutrophils 54.4 % (42.0-75.0); Hemoglobin 7.8 g/dL (14.0-18.0); Mean Corpuscular HGB CONC 31.4 g/dL (32.0-36.0); Mean Corpuscular Volume 76.3 fl (80.0-94.0); Mean Platelet Volume 10.8 fL (7.4-10.4); Platelet Count 140 thou/uL (130-400); RBC Distribution Width 14.5 % (11.5-14.5); Red Blood Cell (RBC) Count 3.25 mill/uL (4.70-6.10); White Blood Cell (WBC) Count 4.5 thou/uL (4.8-10.8)
[2017-12-11 05:51] LABS: Anion Gap 11 mmol/L (10-20); BUN (Urea Nitrogen) 43 mg/dL (8.4-25.7); Calc. Creatinine Clearance 18 mL/min (70-130); Calcium 8.5 mg/dL (7.8-10.44); Carbon Dioxide 21 mmol/L (23-31); Chloride 112 mmol/L (98-107); Estimated GFR-MDRD 13; Glucose 65 mg/dL (83-110); Potassium 4.7 mmol/L (3.5-5.1); Sodium 139 mmol/L (136-145)
[2017-12-11] MEDS: Amlodipine 5 MG TAB PO SCH (08:32)
[2017-12-11] MEDS: Levothyroxine 150 MCG TAB PO SCH (08:32)
[2017-12-11] MEDS: Cyanocobalamin (Vitamin B-12) 1,000 MCG TAB PO SCH (08:33)
[2017-12-11] MEDS: Ferrous Sulfate 325 MG TAB PO SCH (08:35)
[2017-12-11] MEDS: Fish Oil 1,000 MG CAP PO SCH (08:35)
[2017-12-11] MEDS: Folic Acid 1 MG TAB PO SCH (08:36)
[2017-12-11] MEDS: hydrALAZINE 25 MG TAB PO SCH ×3 (08:36→21:29)
[2017-12-11] MEDS: Multivitamin W/ Minerals 1 TAB PO SCH (08:37)
[2017-12-11] MEDS: Ubidecarenone 50 MG CAP PO SCH (08:37)
[2017-12-11] MEDS: Sodium Chloride 0.9% 1,000 ML IV SCH ×2 (09:40→22:15)
[2017-12-11] MEDS: cefTRIAXone\\ROCEPHIN 2 GM in Sodium Chloride 0.9% 100 ML IVPB SCH ×2 (10:20→21:31)
--- NOTE | 2017-12-11 12:26 | PRG ---
DATE OF SERVICE: 12/11/2017 SUBJECTIVE: A 77-year-old gentleman being seen for acute kidney injury. The patient denies any naus ea, vomiting, or chest pain. OBJECTIVE: GENERAL: The patient is awake, alert. VITAL SIGNS: Afebrile, pulse 75, breathing 16, blood pressure 144/69. GENERAL APPEARANCE AND MENTAL STATUS: Fair. HEAD/NECK: Normocephalic. Atraumatic. EYES: EOMI. No deformity. EARS: Clear. No ulcers. NOSE: Intact. No lesions. MOUTH: Clear. No discharge. THROAT: Clear. No exudate. LUNGS: Clear. No crackles. CARDIAC: S1, S2. No rub. ABDOMEN: Benign. BS+. GENITALIA/RECTUM: Bustos absent. BACK/EXTREMITIES: Edema 0+ Ulcer- NEUROLOGICAL: Alert and motor intact. SKIN: Rash- Bruise- LYMPHATICS: Edema- Ulcer- LABORATORY: Hemoglobin 7.8, creatinine 5.3. ASSESSMENT AND RECOMMENDATIONS: 1. Acute kidney injury, improved. 2. Hypertension, stable. 3. Anemia, stable. 4. The patient is nonoliguric. 5. Hyperkalemia, stable. 6. Metabolic acidosis, stable. No indication for dialysis.
--- NOTE | 2017-12-11 17:23 | CON ---
DATE OF CONSULTATION: 12/11/2017 REASON FOR CONSULTATION: Follow up on his recent episode of meningitis. HISTORY OF PRESENT ILLNESS: A 77-year-old whom we have treated recently for what appears to be cultu re negative bacterial meningitis and possibility of a brain abscess was also considered in view of th e MRI findings and the fact that the patient had negative CSF cultures in the face of severe hypoglyc orrhachia and marked elevation in WBC count in CSF. The patient was transferred to rehab to continue treatment and unfortunately developed renal insufficiency and was transferred back to the hospital a nd has had IV fluids and the creatinine steadily improving. He is awake, alert, and oriented. Denie s headaches. No visual symptoms, sore throat, odynophagia, or dysphagia. No neck pain. No shoulder pain or chest pain. No cough. No sputum production. No nasal or ear symptoms. No abdominal pain. Voiding without difficulty. No diarrhea. He was able to walk with the assistance of walker this m orning. PAST MEDICAL HISTORY: Type 2 diabetes, hypertension, bipolar disorder, hypothyroidism, renal mass wh ich was shown to be benign, atrial flutter with previous ablation, depression, colon diverticulosis. CURRENT MEDICATIONS: Tylenol, Norvasc, aspirin, Lipitor, Dulcolax, ceftriaxone, vitamin D, Catapres. Vancomycin has been withheld. Ceftriaxone dose 2 grams q.12 hours. SOCIAL HISTORY: Lives with in the area, never smoker. PHYSICAL EXAMINATION: VITAL SIGNS: T-max 98.3, currently 130/60, pulse is 74, respirations 18, O2 sat 97%. SKIN: Not remarkable. The patient has a peripherally inserted central line. The patient is voiding spontaneously. HEENT: Ocular movements are conjugate. Oral cavity with quite a few teeth in place with some decay and gum disease. NECK: Supple. No jugular vein distention. LUNGS: Symmetric clear breath sounds. HEART: S1, S2 regular rate. No S3, S4. ABDOMEN: Soft, not distended or tender. No ascites. No bladder distention. Some osteoarthrosis in knees and ankles. The patient has 2+ edema lower extremities. Pulses 1+ dorsalis pedis. He is abl e to move extremities with some delay. A little bit of rigidity. NEUROLOGIC: He is awake, knows his name, follows commands, a bit sluggish to reply. LABORATORY: White cell count 7.7 and 4.5, hemoglobin 9.9 and 7.8, platelets 140, neutrophil percenta ge 76 down to 54%, lymphocytes 29%. Sodium 139, creatinine 5.39, carbon dioxide 21, total bilirubin less than 0.2. AST and ALT normal, alkaline phosphatase 35, albumin 2.7. Urinalysis was normal exce pt for mild elevation in protein, random vancomycin 31 on 12/07/2017. Renal ultrasound did not show any obstruction and a chest x-ray with no evidence of acute cardiopulmonary process. 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 Possibility of focal abscess is not ruled out. We will repeat the MRI without contrast to s ee if we can discontinue the antimicrobial therapy. At this point in time, the patient has completed now a total of 21 days of therapy. The MRI is improved and we will stop the Rocephin.
[2017-12-11] MEDS: Atorvastatin Calcium 10 MG TAB PO SCH (21:29)
[2017-12-11] MEDS: Divalproex Sodium 250 MG (DR) TAB PO SCH (21:29)
[2017-12-11] MEDS: risperiDONE 3 MG TAB PO SCH (21:30)
[2017-12-12] MEDS: Levothyroxine 150 MCG TAB PO SCH (05:39)
[2017-12-12] MEDS: hydrALAZINE 25 MG TAB PO SCH ×3 (09:20→21:41)
[2017-12-12] MEDS: Amlodipine 5 MG TAB PO SCH (09:21)
[2017-12-12] MEDS: Multivitamin W/ Minerals 1 TAB PO SCH (09:22)
[2017-12-12] MEDS: Ferrous Sulfate 325 MG TAB PO SCH (09:22)
[2017-12-12] MEDS: Folic Acid 1 MG TAB PO SCH (09:22)
[2017-12-12] MEDS: Ubidecarenone 50 MG CAP PO SCH (09:22)
[2017-12-12] MEDS: Fish Oil 1,000 MG CAP PO SCH (09:24)
[2017-12-12] MEDS: Cyanocobalamin (Vitamin B-12) 1,000 MCG TAB PO SCH (09:24)
[2017-12-12] MEDS: cefTRIAXone\\ROCEPHIN 2 GM in Sodium Chloride 0.9% 100 ML IVPB SCH ×2 (09:25→22:05)
[2017-12-12 10:06] LABS: Anion Gap 13 mmol/L (10-20); BUN (Urea Nitrogen) 41 mg/dL (8.4-25.7); Calc. Creatinine Clearance 20 mL/min (70-130); Calcium 8.2 mg/dL (7.8-10.44); Carbon Dioxide 19 mmol/L (23-31); Chloride 114 mmol/L (98-107); Estimated GFR-MDRD 14; Glucose 60 mg/dL (83-110); Potassium 4.6 mmol/L (3.5-5.1); Sodium 141 mmol/L (136-145)
--- NOTE | 2017-12-12 12:16 | PRG ---
DATE OF SERVICE: 12/12/2017 SUBJECTIVE: A 77-year-old gentleman being seen for acute kidney injury. The patient denies any naus ea, vomiting, or chest pain. PHYSICAL EXAMINATION: GENERAL: Patient is awake, alert. VITAL SIGNS: Afebrile, pulse 76, breathing 16, blood pressure 151/69. HEAD/NECK: Normocephalic. Atraumatic. EYES: EOMI. No deformity. EARS: Clear. No ulcers. NOSE: Intact. No lesions. MOUTH: Clear. No discharge. THROAT: Clear. No exudate. LUNGS: Clear. No crackles. CARDIAC: S1, S2. No rub. ABDOMEN: Benign. BS+. GENITALIA/RECTUM: Bustos absent. BACK/EXTREMITIES: Edema 0+ Ulcer- NEUROLOGICAL: Alert and motor intact. SKIN: Rash- Bruise- LYMPHATICS: Edema- Ulcer- LABORATORY DATA: Show hemoglobin 7.8 and creatinine 4.9. ASSESSMENT AND RECOMMENDATIONS: 1. Acute kidney injury, nonoliguric, improving. 2. Hypertension, stable. 3. Anemia, stable. 4. Chronic kidney disease, stable. No indication for dialysis. We will follow renal function close ly.
--- NOTE | 2017-12-12 13:12 | EKG ---
Test Reason : Blood Pressure : / mmHG Vent. Rate : 084 BPM Atrial Rate : 084 BPM P-R Int : 000 ms QRS Dur : 076 ms QT Int : 364 ms P-R-T Axes : 067 -42 044 degrees QTc Int : 430 ms Sinus rhythm with 1st degree A-V block with occasional Premature ventricular complexes and Fusion com plexes Left axis deviation Abnormal ECG Confirmed by PING GONZALEZ ([id number]), newspaper managing editor SANDIE GONZALES ([id number]) on 12/12/2017 1:11:55 PM Referred By: Confirmed By:PING GONZALEZ
--- NOTE | 2017-12-12 13:35 | MRI ---
NONCONTRAST ENHANCED MRI BRAIN: HISTORY: Meningitis. Followup abnormality. FINDINGS: Noncontrast-enhanced MRI images brain are obtained on 12/12/17. Comparison is made to previous exam f rom 11/21/17. Noncontrast-enhanced MRI images demonstrate interval resolution of areas of subarachnoid signal abnor mality seen in the right and left frontoparietal regions. No significant evidence of diffusion restr iction is seen, except for an area of extraaxial left frontal lobe region where previously there was some area of enhancement in the anterior superior aspect of the left frontal lobe. This area may rep resent an area of hemorrhage which does not appear to be acute. No evidence of acute intracranial pa thology is seen. There is extensive cortical atrophy seen. The patient has had previous bilateral c ataract surgery and bilateral paranasal sinus mucosal disease which appears to be chronic. IMPRESSION: Resolved areas of subarachnoid signal abnormalities on the FLAIR weighted sequences compatible with l ikely inflammatory process. 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 No other significant acute abnor mality is noted. POS: [facility]
[2017-12-12] MEDS: Sodium Chloride 0.9% 1,000 ML IV SCH ×3 (13:55→13:58)
[2017-12-12] MEDS: Atorvastatin Calcium 10 MG TAB PO SCH (21:41)
[2017-12-12] MEDS: Divalproex Sodium 250 MG (DR) TAB PO SCH (21:43)
[2017-12-12] MEDS: risperiDONE 3 MG TAB PO SCH (21:44)
[2017-12-13] MEDS: Sodium Chloride 0.9% 1,000 ML IV SCH ×2 (00:37→09:52)
[2017-12-13] MEDS: Levothyroxine 150 MCG TAB PO SCH (05:02)
[2017-12-13 05:24] LABS: #Eosinphils 0.2 thou/uL (0.0-0.7); #Lymphocytes 0.9 thou/uL (1.20-3.40); #Monocytes 0.5 thou/uL (0.11-0.59); #Neutrophils 2.1 thou/uL (1.40-6.50); %Eosinophils 4.1 % (0.0-10.0); %Lymphocytes 24.5 % (21.0-51.0); %Monocytes 14.1 % (0.0-10.0); %Neutrophils 56.3 % (42.0-75.0); Hemoglobin 7.6 g/dL (14.0-18.0); Mean Corpuscular HGB CONC 31.3 g/dL (32.0-36.0); Mean Corpuscular Hemoglobin 23.9 pg (27.0-31.0); Mean Corpuscular Volume 76.4 fl (80.0-94.0); Mean Platelet Volume 10.6 fL (7.4-10.4); Platelet Count 142 thou/uL (130-400); RBC Distribution Width 15.2 % (11.5-14.5); Red Blood Cell (RBC) Count 3.16 mill/uL (4.70-6.10); White Blood Cell (WBC) Count 3.8 thou/uL (4.8-10.8)
[2017-12-13 05:40] LABS: Vancomycin, Random 11.5 ug/mL (See Comment)
[2017-12-13 06:30] LABS: Anion Gap 13 mmol/L (10-20); BUN (Urea Nitrogen) 37 mg/dL (8.4-25.7); Calc. Creatinine Clearance 22 mL/min (70-130); Calcium 8.4 mg/dL (7.8-10.44); Carbon Dioxide 19 mmol/L (23-31); Chloride 113 mmol/L (98-107); Estimated GFR-MDRD 16; Glucose 71 mg/dL (83-110); Potassium 4.4 mmol/L (3.5-5.1); Sodium 141 mmol/L (136-145)
[2017-12-13] MEDS: Fish Oil 1,000 MG CAP PO SCH (07:58)
[2017-12-13] MEDS: hydrALAZINE 25 MG TAB PO SCH ×3 (07:58→21:49)
[2017-12-13] MEDS: Cyanocobalamin (Vitamin B-12) 1,000 MCG TAB PO SCH (07:59)
[2017-12-13] MEDS: Multivitamin W/ Minerals 1 TAB PO SCH (07:59)
[2017-12-13] MEDS: Ubidecarenone 50 MG CAP PO SCH (07:59)
[2017-12-13] MEDS: Ferrous Sulfate 325 MG TAB PO SCH (07:59)
[2017-12-13] MEDS: Folic Acid 1 MG TAB PO SCH (07:59)
[2017-12-13] MEDS: Amlodipine 5 MG TAB PO SCH (08:00)
[2017-12-13] MEDS: cefTRIAXone\\ROCEPHIN 2 GM in Sodium Chloride 0.9% 100 ML IVPB SCH ×2 (09:50→22:58)
--- NOTE | 2017-12-13 12:37 | PRG ---
DATE OF SERVICE: 12/13/2017 SUBJECTIVE: This is a 77-year-old gentleman being seen for acute kidney injury and chronic kidney di sease stage 5. Patient denies any nausea and vomiting. Denies any swelling. Continues to make urin e. PHYSICAL EXAMINATION: GENERAL: Patient is awake, alert. VITAL SIGNS: Afebrile, pulse 75, breathing 16, blood pressure 96/74. HEAD/NECK: Normocephalic. Atraumatic. EYES: EOMI. No deformity. EARS: Clear. No ulcers. NOSE: Intact. No lesions. MOUTH: Clear. No discharge. THROAT: Clear. No exudate. LUNGS: Clear. No crackles. CARDIAC: S1, S2. No rub. ABDOMEN: Benign. BS+. GENITALIA/RECTUM: Bustos absent. BACK/EXTREMITIES: Edema 0+ Ulcer- NEUROLOGICAL: Alert and motor intact. SKIN: Rash- Bruise- LYMPHATICS: Edema- Ulcer- LABORATORY DATA: Show bicarbonate 19, creatinine 4.4. ASSESSMENT AND PLAN: 1. Acute kidney injury with chronic kidney disease, stage 4. Renal function is improving. The ivelisse ent should be okay to discharge. 2. Anemia, stable. 3. Hypertension, stable. 4. Metabolic acidosis, stable. No indication for dialysis at this time.
[2017-12-13] MEDS: Divalproex Sodium 250 MG (DR) TAB PO SCH (21:49)
[2017-12-13] MEDS: Atorvastatin Calcium 10 MG TAB PO SCH (21:50)
[2017-12-13] MEDS: risperiDONE 3 MG TAB PO SCH (21:51)
[2017-12-14] MEDS: Sodium Chloride 0.9% 1,000 ML IV SCH ×3 (05:11→18:38)
[2017-12-14] MEDS: Levothyroxine 150 MCG TAB PO SCH (05:15)
[2017-12-14] MEDS: Ubidecarenone 50 MG CAP PO SCH (08:27)
[2017-12-14] MEDS: hydrALAZINE 25 MG TAB PO SCH ×3 (08:28→21:22)
[2017-12-14] MEDS: Ferrous Sulfate 325 MG TAB PO SCH (08:29)
[2017-12-14] MEDS: Cyanocobalamin (Vitamin B-12) 1,000 MCG TAB PO SCH (08:29)
[2017-12-14] MEDS: Amlodipine 5 MG TAB PO SCH (08:29)
[2017-12-14] MEDS: Fish Oil 1,000 MG CAP PO SCH (08:29)
[2017-12-14] MEDS: Folic Acid 1 MG TAB PO SCH (08:30)
[2017-12-14] MEDS: Multivitamin W/ Minerals 1 TAB PO SCH (08:30)
[2017-12-14] MEDS: cefTRIAXone\\ROCEPHIN 2 GM in Sodium Chloride 0.9% 100 ML IVPB SCH ×2 (09:50→21:26)
[2017-12-14 11:13] LABS: Anion Gap 12 mmol/L (10-20); BUN (Urea Nitrogen) 33 mg/dL (8.4-25.7); Calc. Creatinine Clearance 25 mL/min (70-130); Calcium 8.4 mg/dL (7.8-10.44); Carbon Dioxide 20 mmol/L (23-31); Chloride 113 mmol/L (98-107); Estimated GFR-MDRD 19; Glucose 94 mg/dL (83-110); Potassium 4.4 mmol/L (3.5-5.1); Sodium 141 mmol/L (136-145)
--- NOTE | 2017-12-14 13:09 | PRG ---
DATE OF SERVICE: 12/14/2017 SUBJECTIVE: Patient was seen and examined at bedside and overnight events noted. Patient denies any shortness of breath or chest pain or palpitation. No history of nausea or vomitin g or diarrhea or fever or chills or cramps. OBJECTIVE: GENERAL: This is a well-built male, in no apparent distress. VITAL SIGNS: Temperature 98.7, pulse 77, respiratory rate 18, blood pressure 137/98. HEENT: Atraumatic, normocephalic. Oral mucosa is moist NECK: Supple. CARDIOVASCULAR: S1 and S2 heard. Rate and rhythm regular. RESPIRATORY: Clear to auscultation. GASTROINTESTINAL: Abdomen is soft. MUSCULOSKELETAL: No tenderness. No edema. DERMATOLOGIC: No skin rash. NEUROLOGIC: Alert and awake and oriented X3, No focal neurologic deficits. Moving all the extremitie s. PSYCHIATRIC: Mood and affect normal. LABORATORY DATA: Potassium 4.4, BUN 33, creatinine 3.8. ASSESSMENT AND PLAN: 1. Acute kidney injury on chronic kidney disease stage 3. Renal function was slight improvement. C reatinine peaked at 7.49 and now it is 3.8, seems like improving from acute tubular necrosis and drug toxicity. 2. Anemia. Monitor hemoglobin. 3. Hypertension, stable. 4. Edema, controlled. 5. Renal function, a little bit to significant improvement. We will follow.
--- NOTE | 2017-12-14 18:17 | PRG ---
DATE OF SERVICE: 12/14/2017 SUBJECTIVE: Awake, alert, oriented. No headaches. No respiratory symptoms or abdominal pain. Void ing without difficulty. OBJECTIVE: VITAL SIGNS: Normal. LUNGS: Clear. HEART: S1 and S2, regular rate. ABDOMEN: Soft. LABORATORY DATA: White cell count 3.8, hemoglobin 7.6, platelets 142. Creatinine 3.82 which is bett er than on admission. 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 We will continue Rocephin for another 3 weeks. End date of therapy will be 01/02/2018.
[2017-12-14] MEDS: Atorvastatin Calcium 10 MG TAB PO SCH (20:05)
[2017-12-14] MEDS: risperiDONE 3 MG TAB PO SCH (20:05)
[2017-12-14] MEDS: Divalproex Sodium 250 MG (DR) TAB PO SCH (20:05)
[2017-12-15] MEDS: Levothyroxine 150 MCG TAB PO SCH (06:08)
[2017-12-15 06:18] LABS: Anion Gap 11 mmol/L (10-20); BUN (Urea Nitrogen) 33 mg/dL (8.4-25.7); Calc. Creatinine Clearance 27 mL/min (70-130); Calcium 8.4 mg/dL (7.8-10.44); Carbon Dioxide 22 mmol/L (23-31); Chloride 111 mmol/L (98-107); Estimated GFR-MDRD 20; Glucose 77 mg/dL (83-110); Potassium 4.1 mmol/L (3.5-5.1); Sodium 140 mmol/L (136-145)
[2017-12-15] MEDS: cefTRIAXone\\ROCEPHIN 2 GM in Sodium Chloride 0.9% 100 ML IVPB SCH ×2 (09:17→21:29)
[2017-12-15] MEDS: Ubidecarenone 50 MG CAP PO SCH (09:18)
[2017-12-15] MEDS: Folic Acid 1 MG TAB PO SCH (09:19)
[2017-12-15] MEDS: hydrALAZINE 25 MG TAB PO SCH ×3 (09:19→21:28)
[2017-12-15] MEDS: Cyanocobalamin (Vitamin B-12) 1,000 MCG TAB PO SCH (09:21)
[2017-12-15] MEDS: Ferrous Sulfate 325 MG TAB PO SCH (09:21)
[2017-12-15] MEDS: Amlodipine 5 MG TAB PO SCH (09:21)
[2017-12-15] MEDS: Multivitamin W/ Minerals 1 TAB PO SCH (09:21)
[2017-12-15] MEDS: Fish Oil 1,000 MG CAP PO SCH (09:22)
[2017-12-15] MEDS: Sodium Chloride 0.9% 1,000 ML IV SCH (09:22)
--- NOTE | 2017-12-15 15:35 | PRG ---
DATE OF SERVICE: 12/15/2017 SUBJECTIVE: Patient was seen and examined at bedside and overnight events noted. Patient denies any shortness of breath or chest pain or palpitation. No history of nausea or vomitin g or diarrhea or fever or chills or cramps. OBJECTIVE: GENERAL: This is a well-built male, in no apparent distress. VITAL SIGNS: Temperature 97.7, pulse 70, respiratory rate 18, blood pressure 137/69. HEENT: Atraumatic, normocephalic. Oral mucosa is moist NECK: Supple. CARDIOVASCULAR: S1 and S2 heard. Rate and rhythm regular. RESPIRATORY: Clear to auscultation. GASTROINTESTINAL: Abdomen is soft. MUSCULOSKELETAL: No tenderness. No edema. DERMATOLOGIC: No skin rash. NEUROLOGIC: Alert and awake and oriented X3, No focal neurologic deficits. Moving all the extremitie s. PSYCHIATRIC: Mood and affect normal. LABORATORY DATA: Potassium is 4.1, BUN 33, creatinine is 3.5. ASSESSMENT AND PLAN: 1. Acute kidney injury on chronic kidney stage 3. Renal function was slow, steady improvement. Oka y to stop the intravenous fluids. Avoid nephrotoxins and monitor. 2. Hypertension. 3. Edema, controlled. 4. Anemia. Overall, stable. Monitor renal function.
[2017-12-15] MEDS: risperiDONE 3 MG TAB PO SCH (21:00)
[2017-12-15] MEDS: Divalproex Sodium 250 MG (DR) TAB PO SCH (21:28)
[2017-12-15] MEDS: Atorvastatin Calcium 10 MG TAB PO SCH (21:28)
[2017-12-16] MEDS: Levothyroxine 150 MCG TAB PO SCH (05:16)
[2017-12-16 06:08] LABS: Anion Gap 12 mmol/L (10-20); BUN (Urea Nitrogen) 30 mg/dL (8.4-25.7); Calc. Creatinine Clearance 28 mL/min (70-130); Calcium 8.8 mg/dL (7.8-10.44); Carbon Dioxide 23 mmol/L (23-31); Chloride 111 mmol/L (98-107); Estimated GFR-MDRD 22; Glucose 62 mg/dL (83-110); Potassium 4.2 mmol/L (3.5-5.1); Sodium 142 mmol/L (136-145)
[2017-12-16] MEDS: Ferrous Sulfate 325 MG TAB PO SCH (10:02)
[2017-12-16] MEDS: Ubidecarenone 50 MG CAP PO SCH (10:02)
[2017-12-16] MEDS: Amlodipine 5 MG TAB PO SCH (10:02)
[2017-12-16] MEDS: cefTRIAXone\\ROCEPHIN 2 GM in Sodium Chloride 0.9% 100 ML IVPB SCH ×2 (10:02→21:37)
[2017-12-16] MEDS: Fish Oil 1,000 MG CAP PO SCH (10:03)
[2017-12-16] MEDS: Cyanocobalamin (Vitamin B-12) 1,000 MCG TAB PO SCH (10:04)
[2017-12-16] MEDS: Multivitamin W/ Minerals 1 TAB PO SCH (10:04)
[2017-12-16] MEDS: Folic Acid 1 MG TAB PO SCH (10:04)
[2017-12-16] MEDS: hydrALAZINE 25 MG TAB PO SCH ×3 (10:04→21:36)
[2017-12-16 13:45] VITALS: BMI 31.2
--- NOTE | 2017-12-16 18:10 | PRG ---
DATE OF SERVICE: 12/16/2017 SUBJECTIVE: Patient was seen and examined at bedside and overnight events noted. Patient denies any shortness of breath or chest pain or palpitation. No history of nausea or vomiting or diarrhea or f ever or chills or cramps. OBJECTIVE: General: This is a well-built male in no apparent distress. VITAL SIGNS: Temperature 98.1, pulse 69, respiratory rate 18, and pressure 150/66. HEENT: Atraumatic, normocephalic, Oral mucosa is moist. Neck: Supple. Cardiovascular: S1 and S2 heard. Rate and rhythm regular. Respiratory: Clear to auscultation. Gastrointestinal: Abdomen is soft. Musculoskeletal: No tenderness. No edema. Dermatologic: No skin rash. Neurologic: Alert and awake and oriented X3. No focal neurologic deficits. Moving all the extremities . Psychiatric: Mood and affect normal. LABORATORY DATA: Potassium is 4.2, BUN is 30, creatinine is 3.3. ASSESSMENT AND PLAN: 1. Acute kidney injury on chronic kidney disease. 2. Renal function with slow improvement. 3. Hypotension. 4. Edema. 5. Anemia. Monitor renal function. Avoid nephrotoxins. We will follow.
[2017-12-16] MEDS: Divalproex Sodium 250 MG (DR) TAB PO SCH (21:35)
[2017-12-16] MEDS: Atorvastatin Calcium 10 MG TAB PO SCH (21:36)
[2017-12-16] MEDS: risperiDONE 3 MG TAB PO SCH (21:37)
[2017-12-17] MEDS: Levothyroxine 150 MCG TAB PO SCH (05:06)
[2017-12-17 05:37] LABS: Anion Gap 12 mmol/L (10-20); BUN (Urea Nitrogen) 28 mg/dL (8.4-25.7); Calc. Creatinine Clearance 29 mL/min (70-130); Calcium 8.7 mg/dL (7.8-10.44); Carbon Dioxide 24 mmol/L (23-31); Chloride 109 mmol/L (98-107); Estimated GFR-MDRD 23; Glucose 66 mg/dL (83-110); Sodium 141 mmol/L (136-145)
[2017-12-17 06:02] LABS: Eosinophils 3 % (0-10); Hemoglobin 7.4 g/dL (14.0-18.0); Lymphocytes 16 % (21-51); MDiff Complete? YES; Mean Corpuscular HGB CONC 32.3 g/dL (32.0-36.0); Mean Corpuscular Volume 74.5 fl (80.0-94.0); Mean Platelet Volume 10.6 fL (7.4-10.4); Metamyelocyte 1 % (0-0); Microcytosis SLIGHT = 6-15 cells (100X) (0-5/hpf); Monocytes 6 % (0-10); Neutrophil 74 % (42-75); PLT Morphology Comment Appears Adequate; Platelet Count 164 thou/uL (130-400); RBC Distribution Width 15.6 % (11.5-14.5); Red Blood Cell (RBC) Count 3.08 mill/uL (4.70-6.10)
[2017-12-17 07:50] VITALS: BP 139/66
[2017-12-17] MEDS: Multivitamin W/ Minerals 1 TAB PO SCH (09:50)
[2017-12-17] MEDS: Ferrous Sulfate 325 MG TAB PO SCH (09:50)
[2017-12-17] MEDS: hydrALAZINE 25 MG TAB PO SCH (09:50)
[2017-12-17] MEDS: Ubidecarenone 50 MG CAP PO SCH (09:50)
[2017-12-17] MEDS: Folic Acid 1 MG TAB PO SCH (09:51)
[2017-12-17] MEDS: Amlodipine 5 MG TAB PO SCH (09:51)
[2017-12-17] MEDS: Fish Oil 1,000 MG CAP PO SCH (09:51)
[2017-12-17] MEDS: Cyanocobalamin (Vitamin B-12) 1,000 MCG TAB PO SCH (09:51)
[2017-12-17 10:37] VITALS: TEMP 98
--- NOTE | 2017-12-17 18:05 | PRG ---
DATE OF SERVICE: 12/17/2017 SUBJECTIVE: Patient was seen and examined at bedside and overnight events noted. Patient denies any shortness of breath or chest pain or palpitation. No history of nausea or vomiting or diarrhea or f ever or chills or cramps. OBJECTIVE: GENERAL: This is a well-built male in no apparent distress. VITAL SIGNS: Temperature 98.0, pulse 69, respirations 16, blood pressure 129/66. HEENT: Atraumatic, normocephalic. Oral mucosa is moist. NECK: Supple. CARDIOVASCULAR: S1, S2 heard. Rate and rhythm regular. RESPIRATORY: Clear to auscultation. GASTROINTESTINAL: Abdomen is soft. MUSCULOSKELETAL: No tenderness, no edema. DERMATOLOGIC: No skin rash. NEUROLOGIC: Alert and awake and oriented x3. No focal neurologic deficits. Moving all the extremit ies. PSYCHIATRIC: Mood and affect normal. LABORATORY DATA: Potassium 4.0, BUN 20, creatinine is 3.21. ASSESSMENT AND PLAN: 1. Acute kidney injury on chronic kidney disease stage 3. Renal function slowly with significant im provement. 2. Hypertension. 3. Edema, controlled. 4. Anemia. 5. Renal function is stable. Avoid nephrotoxins.
--- NOTE | 2017-12-18 15:30 | DIS ---
ADMITTING DIAGNOSES: 1. Acute kidney injury, possibly secondary to acute tubular necrosis. 2. Mild metabolic acidosis and hyperkalemia. 3. Meningitis on antibiotics. 4. Hypertension 5. Chronic anemia. 6. Hypothyroidism. 7. Bipolar disorder. FINAL DIAGNOSES: 1. Acute kidney injury - due to acute tubular necrosis, markedly improved. 2. Mild metabolic acidosis, improved. 3. Meningitis on Rocephin. 4. Elevated vancomycin trough, improved. 5. Hypertension. 6. Chronic anemia. 7. Hypothyroidism. 8. Bipolar disorder. BRIEF SUMMARY OF HOSPITAL COURSE: Mr. Brian is a 77-year-old male admitted [facility] of marked acute kidney injury with elevated creatinine of 7.36 on admission. The patient was found to have acute kidney injury, probably due to acute tubular necrosis. He was started on IV fluids, s een by the able bodied tankerman. He says to start the patient on bicarbonate drip. He also felt patient has hyperkalemia and mild acidosis. He also suggested to monitor the level of vancomycin and discontinu e the vancomycin. The patient was monitored every day and labs were done. His creatinine started to decrease slowly and the following days, it came down from 7.36 to 6.38 and 5.38 and 3.3 in the next several days, his BUN also came down. His potassium also came down: The patient will continue on Ro cephin for his meningitis, started on physical therapy as well. Brain MRI was done which showed cere britis in the frontal area. Dr. Munson saw the patient, says to continue with Rocephin until 01/03/20 18. In view of that the patient is being discharged back to rehab. At discharge, he was stable. Mn s vital signs were stable. Lungs clear. Heart sounds normal. Abdomen is soft, nontender. Bowel so unds present. DISCHARGE MEDICATIONS: Include sulfate daily, vitamin B12 daily, fish oil daily, vitamin D daily, Vi tamin E, Coenzyme Q daily, folic acid 1 mg daily, Depakote 750 daily, Risperdal 3 mg at bedtime, levo thyroxine 125 mcg daily, hydralazine 100 mg t.i.d., metoprolol 50 mg daily, aspirin 81 mg daily, amlo dipine 5 mg daily, Rocephin 2 grams b.i.d. IV piggyback until 01/02/2018. The patient is also on dasha e p.r.n. medications. His vancomycin has been discontinued. FOLLOWUP: The patient will be monitored at the rehab.
== END 2017-12-17 11:30 | DRG 682 ==
LOC: ERS 14:07 → 2NO 18:34 → ONC 12-10 20:26
PROVIDERS: ADMIT Internal Medicine; ATTEND Internal Medicine
DX: N17.0 Acute kidney failure with tubular necrosis (principal); G04.90 Encephalitis and encephalomyelitis, unspecified; E87.2 Acidosis; E11.22 Type 2 diabetes mellitus with diabetic chronic kidney disease; E87.5 Hyperkalemia; E03.9 Hypothyroidism, unspecified; I12.9 Hypertensive chronic kidney disease with stage 1 through stage 4 chronic kidney disease, or unspecified chronic kidney disease; N18.3 Chronic kidney disease, stage 3 (moderate); D64.9 Anemia, unspecified; F31.9 Bipolar disorder, unspecified; F41.9 Anxiety disorder, unspecified; N14.1 Nephropathy induced by other drugs, medicaments and biological substances; Z79.82 Long term (current) use of aspirin; Z79.899 Other long term (current) drug therapy; T36.8X5A Adverse effect of other systemic antibiotics, initial encounter
CPT/HCPCS: 36415; 36416; 70551; 71045; 76770; 80048; 80053; 80202; 81001; 83880; 84439; 84443; 84484; 85025; 90471; 90682; 93005; 96365; 96375; A4216; G0008; G8978-GP-CL; G8979-GP-CK; G8987-GO-CJ; G8988-GO-CI; J0696; J7050; Q2036

== ENCOUNTER 2018-01-02 10:09 | Inpatient (IN) | payer MEDICARE, OTHER ==
[2018-01-02 10:32] LABS: INR-International Normal Ratio 1.3; PTT 33.2 SEC (22.9-36.1); Prothrombin Time 16.6 SEC (12.0-14.7)
[2018-01-02 10:41] LABS: ALT (SGPT) 8 U/L (8-55); AST (SGOT) 12 U/L (5-34); Albumin 3.2 g/dL (3.4-4.8); Alkaline Phosphatase 40 U/L (40-150); Anion Gap 13 mmol/L (10-20); BUN (Urea Nitrogen) 41 mg/dL (8.4-25.7); Bilirubin, Total 0.3 mg/dL (0.2-1.2); CK (CPK) 73 U/L (30-200); Calc. Creatinine Clearance 0 mL/min (70-130); Calcium 9.1 mg/dL (7.8-10.44); Carbon Dioxide 22 mmol/L (23-31); Chloride 103 mmol/L (98-107); Estimated GFR-MDRD 23; Globulin 3.2 g/dL (2.4-3.5); Glucose 93 mg/dL (83-110); Lipase 8 U/L (8-78); Potassium 4.2 mmol/L (3.5-5.1); Protein, Total 6.4 g/dL (5.8-8.1); Sodium 134 mmol/L (136-145)
[2018-01-02 10:42] LABS: #Lymphocytes 0.7 thou/uL (1.20-3.40); #Monocytes 0.9 thou/uL (0.11-0.59); #Neutrophils 8.9 thou/uL (1.40-6.50); %Basophils 0.1 % (0.0-1.0); %Eosinophils 0.3 % (0.0-10.0); %Lymphocytes 6.4 % (21.0-51.0); %Monocytes 8.9 % (0.0-10.0); %Neutrophils 84.4 % (42.0-75.0); Hemoglobin 7.8 g/dL (14.0-18.0); MDiff Complete? YES; Mean Corpuscular HGB CONC 32.4 g/dL (32.0-36.0); Mean Corpuscular Hemoglobin 23.9 pg (27.0-31.0); Mean Corpuscular Volume 73.9 fl (80.0-94.0); Mean Platelet Volume 9.2 fL (7.4-10.4); Microcytosis SLIGHT = 6-15 cells (100X) (0-5/hpf); Platelet Count 230 thou/uL (130-400); RBC Distribution Width 16.2 % (11.5-14.5); Red Blood Cell (RBC) Count 3.26 mill/uL (4.70-6.10); Target Cells SLIGHT = 2-5 cells (100X) (0-1/hpf); White Blood Cell (WBC) Count 10.5 thou/uL (4.8-10.8)
[2018-01-02 10:44] LABS: CKMB 1.1 ng/mL (0-6.6); Troponin I Less than 0.010 ng/mL (< 0.028)
[2018-01-02 10:46] LABS: Alcohol Less than 10 mg/dL (Less than 10); Salicylate Less than 8.0 mg/dL (15.0-30.0)
--- NOTE | 2018-01-02 11:13 | CT ---
CT HEAD NONCONTRAST DATE: 01/02/18 HISTORY: Altered mental status. Left facial droop. COMPARISON: 04/23/15. FINDINGS: There is no evidence of acute intracranial hemorrhage or infarct. The ventricles appear normal in siz e, shape, and position. Diffuse cortical atrophy is similar in appearance to the previous study. Smal l amount of fluid layers within the dependent portion of the right maxillary sinus. IMPRESSION: No acute intracranial abnormalities are demonstrated on noncontrast CT head. Findings called to Dr. Potter in the emergency department at 1023 hours. CODE CR. POS: [facility]
--- NOTE | 2018-01-02 11:22 | RAD ---
CHEST 1 VIEW: Date: 01/02/18 HISTORY: Altered mental status. Weakness. COMPARISON: 12/05/17. FINDINGS: Cardiac silhouette is magnified by projection. Pulmonary vasculature is unremarkable. Dense infiltrat e involves a majority of the right lower lobe with some component of atelectasis. Mediastinum is midl ine with aortic calcification and postoperative changes. IMPRESSION: 1. Right lower lobe pneumonia. 2. Atherosclerosis. POS: [facility]
[2018-01-02 12:05] LABS: Bilirubin Negative (Negative); Blood, Urine Negative (Negative); Clarity CLOUDY (Clear); Glucose, Urine (Dipstick) Negative (Negative); Leukocyte Trace (Negative); Nitrite Negative (Negative); Protein, Urine (Dipstick) 100 mg/dL (Neg-Trace); Specific Gravity, Urine 1.015 (1.002-1.036); Urobilinogen 0.2 mg/dL (0.2-1.0); pH, Urine 5.5 (5.0-9.0)
[2018-01-02 12:07] LABS: Bacteria/HPF None Seen HPF (None Seen); Hyaline Casts/LPF 4-6 HYALINE CAST LPF (0-3 Hyaline); Pathc Cast-AUWi Flag 0.72 (0-2.49); RBC/HPF 0-3 HPF (0-3); Squamous Epithelial 0-3 HPF (0-3); WBC/HPF 0-3 HPF (0-3)
[2018-01-02 12:18] LABS: Amphetamine Not Detected (NotDetected); Barbiturates Screen Not Detected (NotDetected); Benzodiazepine Screen Not Detected (NotDetected); Cocaine Metabolite Screen Not Detected (NotDetected); Medtox Control Line Valid? VALID (VALID); Medtox Reader # READER 1; Methadone Not Detected (NotDetected); Methamphetamine Not Detected (NotDetected); Opiate Screen Not Detected (NotDetected); Oxycodone Screen Not Detected (NotDetected); Phencyclidine (PCP) Not Detected (NotDetected); THC/Cannabinoid Screen Not Detected (NotDetected); Tricyclic Screen Not Detected (NotDetected)
[2018-01-02 12:23] LABS: Crystals/HPF 2+ AMORPH URATES HPF (Negative); Renal Epithelial 0-3 HPF (0-3); Transitional Epithelial NONE SEEN HPF (0-3)
[2018-01-02] MEDS ORDERED: Sodium Chloride 0.9% 1,000 ML IV SCH (13:17)
[2018-01-02] MEDS ORDERED: Ondansetron ODT 4 MG TAB SL PRN (13:17)
[2018-01-02] MEDS ORDERED: Ondansetron HCl/PF 4 MG/2 ML Vial IVP PRN (13:17)
[2018-01-02 14:02] VITALS: BMI 29.1
[2018-01-02] MEDS ORDERED: Dextrose 50% Abboject 50 ML SYRINGE IVP PRN (19:45)
[2018-01-02] MEDS ORDERED: Dextrose 5% in Water 1,000 ML IV PRN (19:45)
[2018-01-02] MEDS ORDERED: Insulin Regular 300 UNITS/3 ML VIAL SC PRN (19:45)
[2018-01-02] MEDS: hydrALAZINE 25 MG TAB PO SCH (20:43)
[2018-01-02] MEDS: Sodium Chloride 0.45% 1,000 ML IV SCH (20:44)
[2018-01-02] MEDS: Cefepime 1 GM, Admixture Fee 1 EACH in Sodium Chloride 0.9% 10 ML SLOW IVP SCH (20:44)
[2018-01-02] MEDS: Simvastatin 20 MG TAB PO SCH (20:44)
[2018-01-03 04:39] LABS: Anion Gap 14 mmol/L (10-20); BUN (Urea Nitrogen) 38 mg/dL (8.4-25.7); Calc. Creatinine Clearance 34 mL/min (70-130); Calcium 8.5 mg/dL (7.8-10.44); Carbon Dioxide 21 mmol/L (23-31); Chloride 105 mmol/L (98-107); Estimated GFR-MDRD 29; Glucose 73 mg/dL (83-110); Potassium 4.6 mmol/L (3.5-5.1); Sodium 135 mmol/L (136-145)
[2018-01-03 04:43] LABS: #Eosinphils 0.1 thou/uL (0.0-0.7); #Lymphocytes 0.8 thou/uL (1.20-3.40); #Monocytes 0.8 thou/uL (0.11-0.59); #Neutrophils 5.8 thou/uL (1.40-6.50); %Basophils 0.1 % (0.0-1.0); %Eosinophils 0.7 % (0.0-10.0); %Lymphocytes 10.8 % (21.0-51.0); %Monocytes 11.2 % (0.0-10.0); %Neutrophils 77.2 % (42.0-75.0); Hemoglobin 6.7 g/dL (14.0-18.0); Mean Corpuscular HGB CONC 32.4 g/dL (32.0-36.0); Mean Corpuscular Hemoglobin 24.9 pg (27.0-31.0); Mean Corpuscular Volume 76.8 fl (80.0-94.0); Platelet Count 176 thou/uL (130-400); RBC Distribution Width 16.3 % (11.5-14.5); White Blood Cell (WBC) Count 7.5 thou/uL (4.8-10.8)
[2018-01-03 04:56] LABS: Thyroid Stimulating Hormone 16.8884 uIU/mL (0.35-4.94)
[2018-01-03 05:17] LABS: Free T4 (Free Thyroxine) 0.92 ng/dL (0.70-1.48)
[2018-01-03] MEDS: Cefepime 1 GM, Admixture Fee 1 EACH in Sodium Chloride 0.9% 10 ML SLOW IVP SCH ×3 (05:18→21:31)
[2018-01-03] MEDS ORDERED: Levothyroxine Sodium 125 MCG TAB PO SCH (06:00)
[2018-01-03] MEDS: Aspirin 81 mg Enteric Coated Tablet PO SCH (08:09)
[2018-01-03] MEDS: Folic Acid 1 MG TAB PO SCH (08:09)
[2018-01-03] MEDS: Ferrous Sulfate 325 MG TAB PO SCH (08:09)
[2018-01-03] MEDS: Cyanocobalamin (Vitamin B-12) 1,000 MCG TAB PO SCH (08:09)
[2018-01-03] MEDS: Fish Oil 1,000 MG CAP PO SCH (08:09)
[2018-01-03] MEDS: Ubidecarenone 50 MG CAP PO SCH (08:09)
[2018-01-03] MEDS: Lisinopril 20 MG TAB PO SCH (08:10)
[2018-01-03] MEDS: hydrALAZINE 25 MG TAB PO SCH ×3 (08:10→21:31)
[2018-01-03] MEDS ORDERED: CRANBERRY 300 MG PO SCH (09:00)
[2018-01-03] MEDS: Sodium Chloride 0.45% 1,000 ML IV SCH (09:22)
[2018-01-03 14:28] LABS: Legionella Urinary Ag Negative (Negative); Strep pneumo Urine Ag NEGATIVE (NEGATIVE)
--- NOTE | 2018-01-03 20:21 | ULT ---
BILATERAL LOWER EXTREMITY VENOUS DOPPLER WITH SPECTRAL ANALYSIS AND COLOR FLOW EVALUATION: 01/03/2018 HISTORY: Abnormal chest x-ray. Mobility impairment. TECHNIQUE: Grimes-scale, color-flow, Doppler evaluation, and spectral analysis of the bilateral lower extremity ve nous structures is performed with 2D imaging. The bilateral lower extremity common femoral, superfic ial femoral, popliteal, posterior tibial, most proximal greater saphenous, and profunda femoral veins are imaged. FINDINGS: There is normal lumen compressibility, flow, and augmentation of the visualized deep venous structure s of the bilateral lower extremities. There is mild subcutaneous edema seen in the distal left lower extremity. IMPRESSION: 1. No evidence of a deep venous thrombosis involving the visualized deep venous structures of the bi lateral lower extremities. 2. Mild subcutaneous edema, distal left lower extremity. POS: [facility]
[2018-01-03] MEDS: Simvastatin 20 MG TAB PO SCH (21:31)
[2018-01-03] MEDS: Milk Of Magnesia 30 ML UDCUP PO SCH (21:37)
--- NOTE | 2018-01-03 23:06 | CON ---
DATE OF CONSULTATION: 01/03/2018 REASON FOR CONSULTATION: Pneumonia. HISTORY OF PRESENT ILLNESS: A 77-year-old who has a history of culture negative bacterial meningitis and possible brain abscess in the right frontal region treated for protracted period of time with IV Rocephin and vancomycin. Vancomycin has been discontinued because of development of renal insuffici ency. The patient had repeat brain MRI on 12/12/2017, which showed resolved areas of subarachnoid si gnal abnormalities and area of signal abnormality seen in the left frontal lobe consistent with cereb ritis. The patient is admitted at this time after having been home for about 4 days from [facility] with lethargy and low grade fever. He also had some left eye droop which improved. On arrival, he was quite confused. Initial temperature 98.8, respiratory rate 22, pulse 76, O2 sat 96% on 2 lite rs. Initial laboratory data, white cell count 10.5, hemoglobin 7.8, platelets 230 with 84% neutrophi ls. Chemistry with creatinine 2.65, which is improved from his peak creatinine of 7.49 in 12/06/2017 . His previous creatinine was 1.07 on 11/30/2017. Initial chest x-ray demonstrated right lower lobe pneumonia. Currently, Mr. Brian is awake, is oriented. Denies headaches, no visual symptoms, lit tle bit of cough, no chest pain, no dyspnea, no abdominal pain. He is voiding spontaneously. He is constipated according to the family. PAST MEDICAL HISTORY: Type 2 diabetes, hypertension, bipolar disorder, hypothyroidism, meningitis/ce rebritis treated for 6 weeks with Rocephin/vancomycin, acute renal insufficiency with partial improve ment, benign renal mass, atrial flutter, and depression. CURRENT MEDICATIONS: DuoNeb, Ecotrin, cefepime, vitamin B12, fish oil, folic acid, hydralazine, insu stewart, lisinopril, levothyroxine, metoprolol, and Zocor. SOCIAL HISTORY: Never smoker. Lives in [place] with . FAMILY HISTORY: Noncontributory. ALLERGIES: No known drug allergies. PHYSICAL EXAMINATION: VITAL SIGNS: T-max 97.9, blood pressure 115/56, pulse 82, respirations 16, O2 sat 97% on 2 liters. SKIN: Peripheral IV access and the patient is voiding spontaneously. HEENT: Ocular movements conjugate. NECK: Supple. Oral cavity not remarkable. LUNGS: Symmetric air entry with crackles in the right base. HEART: S1, S2, regular rate. No murmurs. ABDOMEN: Soft, not distended or tender. No ascites. No bladder distention. RECTAL: Examination showed soft stool in the rectal vault, some hemorrhoids. EXTREMITIES: No joint inflammatory activity. Able to move extremities on command, is diffusely stif f. Plantar responses are flexor. No clonus. NEUROLOGIC: He knows his name, recognize family members, he knew where he was and the date. LABORATORY DATA: White cell count 10.5 and 7.5, platelets 176, hemoglobin 6.7, MCV 76 and INR 1.3. Sodium 135, creatinine 2.65, glucose 129. Liver profile normal. Albumin 3.2. CK 73, troponin less than 0.010. Urinalysis fairly normal except for 100 protein. Legionella antigen and strep pneumonia antigen negative. Chest x-ray with evidence of a right lower lobe pneumonia. ASSESSMENT: Type 2 diabetes, hypertension, recent episode of meningitis/cerebritis treated with comp letion, recent stay at rehabilitation. Abnormal chest x-ray with low low-grade temperature elevation and consolidation of right lower lobe. DISCUSSION: Differential diagnosis includes aspiration pneumonia with possibly resistant pathogen in view of the recent hospital and rehab stay. Continue cefepime, vancomycin, monitor progress. The estee low has had his recent episode of meningitis/cerebritis treatment completed.
[2018-01-04] MEDS: Cefepime 1 GM, Admixture Fee 1 EACH in Sodium Chloride 0.9% 10 ML SLOW IVP SCH ×3 (04:14→21:06)
[2018-01-04 04:59] LABS: #Eosinphils 0.1 thou/uL (0.0-0.7); #Lymphocytes 0.6 thou/uL (1.20-3.40); #Monocytes 0.5 thou/uL (0.11-0.59); #Neutrophils 4.2 thou/uL (1.40-6.50); %Basophils 0.5 % (0.0-1.0); %Eosinophils 1.6 % (0.0-10.0); %Lymphocytes 11.6 % (21.0-51.0); %Monocytes 9.2 % (0.0-10.0); %Neutrophils 77.1 % (42.0-75.0); Hemoglobin 8.6 g/dL (14.0-18.0); Mean Corpuscular HGB CONC 33.5 g/dL (32.0-36.0); Mean Corpuscular Hemoglobin 25.9 pg (27.0-31.0); Mean Corpuscular Volume 77.5 fl (80.0-94.0); Platelet Count 195 thou/uL (130-400); RBC Distribution Width 16.9 % (11.5-14.5); White Blood Cell (WBC) Count 5.5 thou/uL (4.8-10.8)
[2018-01-04 05:03] LABS: Anion Gap 13 mmol/L (10-20); BUN (Urea Nitrogen) 34 mg/dL (8.4-25.7); Calc. Creatinine Clearance 38 mL/min (70-130); Calcium 8.7 mg/dL (7.8-10.44); Carbon Dioxide 23 mmol/L (23-31); Chloride 106 mmol/L (98-107); Estimated GFR-MDRD 33; Glucose 90 mg/dL (83-110); Potassium 4.1 mmol/L (3.5-5.1); Sodium 138 mmol/L (136-145)
[2018-01-04] MEDS: Levothyroxine 150 MCG TAB PO SCH (05:18)
[2018-01-04] MEDS: Milk Of Magnesia 30 ML UDCUP PO SCH ×2 (08:48→21:06)
[2018-01-04] MEDS: Lisinopril 20 MG TAB PO SCH (08:48)
[2018-01-04] MEDS: hydrALAZINE 25 MG TAB PO SCH ×3 (08:49→21:06)
[2018-01-04] MEDS: Ferrous Sulfate 325 MG TAB PO SCH (08:50)
[2018-01-04] MEDS: Cyanocobalamin (Vitamin B-12) 1,000 MCG TAB PO SCH (08:50)
[2018-01-04] MEDS: Fish Oil 1,000 MG CAP PO SCH (08:50)
[2018-01-04] MEDS: Ubidecarenone 50 MG CAP PO SCH (08:50)
[2018-01-04] MEDS: Aspirin 81 mg Enteric Coated Tablet PO SCH (08:50)
[2018-01-04] MEDS: Folic Acid 1 MG TAB PO SCH (08:58)
[2018-01-04] MEDS: Sodium Chloride 0.45% 1,000 ML IV SCH (09:47)
--- NOTE | 2018-01-04 11:37 | HP ---
DATE OF ADMISSION: 01/02/2018 REASON FOR ADMISSION AND CHIEF COMPLAINT: Lethargy and fever. HISTORY OF PRESENT ILLNESS: Mr. Brian is a 77-year-old -[place] male with past medial hist ory of hypertension, hypothyroidism, bipolar disorder, recent meningitis, who was brought in because the patient was lethargic and running a low grade fever at 100. He was also diaphoretic, not eating well for about 2 days. The patient was recently discharged from the rehab unit about 4 days ago. At the time of discharge, he was stable. His states he was able to eat for a day or two, then did not feel well, he did not eat much. His mentation slowed down, became more lethargic and a temperat ure of 100.1. He did not have any coughing, no chest pain, no shortness of breath. EMS was called, who brought him to the hospital. In the ER, he was found to have pneumonia, right lung and he was al so dehydrated. He was started on IV fluids and given a dose of Levaquin and vancomycin, admitted for further evaluation and management. PAST MEDICAL HISTORY: 1. Hypertension. 2. Hypothyroidism. 3. Bipolar disorder. 4. Chronic kidney disease, stage 3. 5. Recent acute kidney injury. 6. Recent meningitis, completed treatment with antibiotics. 7. Diabetes mellitus. 8. History of colon diverticulosis. 9. History of depression and anxiety. 10. History of atrial flutter. PAST SURGICAL HISTORY: Status post partial thyroidectomy, status post ablation of atrial flutter. CURRENT MEDICATIONS: He is on aspirin 81 mg daily, vitamin D daily 5000 units, vitamin B12 of 1000 m cg daily, Depakote 250 mg at bedtime, ferrous sulfate daily, fish oil 1000 mg daily, folic acid 1 mg daily, Lasix 40 mg daily, hydralazine 100 mg t.i.d., levothyroxine 100 mcg daily, lisinopril 40 mg da fernanda, metoprolol 100 mg daily, Risperdal 3 mg at bedtime, simvastatin 20 mg at bedtime, Coenzyme 50 mg daily. ALLERGIES: NKDA. FAMILY HISTORY: Nothing of interest. SOCIAL HISTORY: The patient lives with family. No history of smoking. No history of alcohol intake . REVIEW OF SYSTEM: Cardiovascular: No chest pain, no shortness of breath. Respiratory: He has feve r. No cough. Gastrointestinal: No nausea, no vomiting, no abdominal pain. Central nervous system: No headache, but lethargic. PHYSICAL EXAMINATION: GENERAL: The patient is awake now. VITAL SIGNS: Temperature 100.1, pulse 67, respiratory rate 20, blood pressure 129/77. HEENT: Head is normocephalic, atraumatic. Pupils are equal and reactive to light. Nasopharynx is p tamiko and dry. Hard and soft palate, no lesions seen. SKIN: Skin turgor decreased. NECK: Supple. No JVD. LUNGS: Breath sounds diminished bilaterally. Percussion dull bilaterally. Crackles present in righ t side. CARDIOVASCULAR: S1, S2 regular. ABDOMEN: Soft, no distention, no tenderness. Normal bowel sounds present. RECTAL: Deferred. CENTRAL NERVOUS SYSTEM: The patient is awake, not very alert. Motor system power 4/5 in all extremi ties. Deep tendon reflexes, 2+ bilaterally. Plantar downgoing. Sensory intact. LABORATORY AND X-RAY FINDINGS: CBC shows WBC 10.8, hemoglobin 7.8, hematocrit 24, platelets 230. Me tabolic panel: Sodium 134, potassium 4, chloride 102, CO2 of 28, urea nitrogen 41, creatinine 0.2, g lucose 93. BNP 211, urinalysis negative. Prothrombin time , INR 1.1. Brain CT unremarkable. Chest x-ray shows dense infiltrate in the right lower lobe. EKG shows normal sinus rhythm, no acute ST-T wave changes seen. ASSESSMENT: 1. Pneumonia, right lower lobe. 2. Acute metabolic encephalopathy. 3. Hypothyroidism. 4. Hypertension. 5. History of meningitis, treated. 6. Chronic anemia. 7. Bipolar disorder. 8. Chronic kidney disease, stage 3. 9. Recent acute kidney injury. PLAN: 1. Vital signs q.4 hours. 2. Activities: As tolerated. 3. Allergies: No known drug allergies. 4. Diet: Regular. 5. IV fluids: Half normal at 70 mL per hour. 6. Cefepime 1 gram IV piggyback q.8 hours. 7. Continue home medication.
--- NOTE | 2018-01-04 16:18 | RAD ---
MODIFIED BARIUM SWALLOW: INDICATIONS: Rule out silent aspiration. TECHNIQUE: Real-time fluoroscopic examination was performed in conjunction with the speech therapy department. The patient was administered thin barium contrast, barium-impregnated nectar, barium-impregnated pudd ing, and a cookie. Total fluoroscopic time was 1.8 minutes. Total exposure was 1.129 Gy per cm2. FINDINGS: There were episodes of flash penetration with thin barium liquids only. No episodes of aspiration we re demonstrated with thin barium liquids, barium-impregnated nectar, barium-impregnated, pudding, or cookie. IMPRESSION: Episodes of flash penetration with thin barium liquids only. No episodes of aspiration. Please see the speech therapy dictation for full details. POS: [facility]
[2018-01-04] MEDS: Simvastatin 20 MG TAB PO SCH (21:06)
[2018-01-04] MEDS ORDERED: Magnesium Citrate 300 ML BOT PO SCH (22:30)
[2018-01-05] MEDS: Levothyroxine 150 MCG TAB PO SCH (04:44)
[2018-01-05] MEDS: Cefepime 1 GM, Admixture Fee 1 EACH in Sodium Chloride 0.9% 10 ML SLOW IVP SCH ×3 (04:44→20:04)
[2018-01-05 05:27] LABS: #Eosinphils 0.2 thou/uL (0.0-0.7); #Lymphocytes 0.7 thou/uL (1.20-3.40); #Monocytes 0.6 thou/uL (0.11-0.59); #Neutrophils 3.3 thou/uL (1.40-6.50); %Basophils 0.5 % (0.0-1.0); %Lymphocytes 13.9 % (21.0-51.0); %Neutrophils 67.6 % (42.0-75.0); Hemoglobin 8.6 g/dL (14.0-18.0); Mean Corpuscular HGB CONC 32.7 g/dL (32.0-36.0); Mean Corpuscular Hemoglobin 25.4 pg (27.0-31.0); Mean Corpuscular Volume 77.7 fl (80.0-94.0); Platelet Count 203 thou/uL (130-400); RBC Distribution Width 17.5 % (11.5-14.5); Red Blood Cell (RBC) Count 3.39 mill/uL (4.70-6.10)
[2018-01-05 05:36] LABS: Anion Gap 7 mmol/L (10-20); BUN (Urea Nitrogen) 27 mg/dL (8.4-25.7); Calc. Creatinine Clearance 42 mL/min (70-130); Calcium 8.9 mg/dL (7.8-10.44); Carbon Dioxide 29 mmol/L (23-31); Chloride 105 mmol/L (98-107); Estimated GFR-MDRD 37; Glucose 89 mg/dL (83-110); Potassium 4.7 mmol/L (3.5-5.1); Sodium 136 mmol/L (136-145)
[2018-01-05] MEDS: Lisinopril 20 MG TAB PO SCH (08:25)
[2018-01-05] MEDS: Ferrous Sulfate 325 MG TAB PO SCH (08:26)
[2018-01-05] MEDS: hydrALAZINE 25 MG TAB PO SCH ×3 (08:27→20:03)
[2018-01-05] MEDS: Cyanocobalamin (Vitamin B-12) 1,000 MCG TAB PO SCH (08:27)
[2018-01-05] MEDS: Aspirin 81 mg Enteric Coated Tablet PO SCH (08:28)
[2018-01-05] MEDS: Fish Oil 1,000 MG CAP PO SCH (08:28)
[2018-01-05] MEDS: Ubidecarenone 50 MG CAP PO SCH (08:28)
[2018-01-05] MEDS: Polyethylene Glycol 3350 17 GM Packet PO SCH (08:29)
[2018-01-05] MEDS: Folic Acid 1 MG TAB PO SCH (08:29)
[2018-01-05] MEDS: Milk Of Magnesia 30 ML UDCUP PO SCH ×2 (08:29→20:04)
--- NOTE | 2018-01-05 10:44 | PQF ---
CLINICAL DOCUMENTATION IMPROVEMENT CLARIFICATION FORM: ICD-10 Updated PLEASE DO AN ADDENDUM TO THE PROGRESS NOTE WITH ANY DOCUMENTATION UPDATES OR ADDITIONS AND CARRY THROUGH TO DC SUMMARY. THANK YOU. DATE: 01/05/18 ATTN: Dr. Morgan Please exercise your independent, professional judgment in responding to the clarification form. Clinical indicators are provided on the bottom of this form for your review Please check appropriate box(s): [ ] Aspiration Pneumonia [ y ] Empirically treating Gram Negative Pneumonia [ y] Empirically treating Anaerobic Pneumonia [ ] Pneumonia secondary to (specify organism / underlying disease) [ ] Simple Pneumonia (community acquired - nosocomial) [ ] Pneumonia of unknown etiology [ ] Other diagnosis [ ] Unable to determine In addition, please specify: Present on Admission (POA): [ ] Yes [ ] No [ ] Unable to determine For continuity of documentation, please document condition throughout progress notes and discharge summary. Thank You. CLINICAL INDICATORS - SIGNS / SYMPTOMS / LABS H&P: PNEUMONIA, R LOWER LOBE ACUTE METABOLIC ENCEPHALOPATHY PN /: PNEUMONIA RLL ID CONSULT: ABNORMAL CHEST X-RAY WITH LOW LOW-GRADE TEMPERATURE ELEVATION & CONSOLIDATION OF R LOWER LOBE. DIFFERENTIAL DIAGNOSIS INCLUDES ASPIRATION PNEUMONIA W/ POSSIBLY RESISTANT PATHOGEN IN VIEW OF THE RECENT HOSPITAL & REHAB STAY. RISKS: H&P: RECENTLY DISCHARGED FROM REHAB UNIT ABOUT 4 DAYS AGO. HX HTN, RECENT MENINGITIS, COMPLETED TREATMENT W/ ANTIBIOTICS. DM. CKD 3. RECENT LANDY. TREATMENT: ORDER 01/02: CEFEPIME 1 GM IV Q 8 H Thank you, Ameena (This form is maintained as a part of the permanent medical record) 2015 [employer]. All Rights Reserved Ameena Cast RN, BSN [email or web address] Office: [phone] [facility]
--- NOTE | 2018-01-05 19:32 | PRG ---
DATE OF SERVICE: 01/05/2018 SUBJECTIVE: Feeling well. No headaches, some cough, some sputum production. No dyspnea. No abdomi nal pain, diarrhea, voiding without difficulty. OBJECTIVE: VITAL SIGNS: Afebrile. NEUROLOGIC: Unchanged. LABORATORY DATA: White cell count 5.0, hemoglobin 8.6, platelets 203. Creatinine 2.11. Current reg imen includes cefepime and strep pneumonia antigen, legionella pneumophila antigen negative. ASSESSMENT AND DISCUSSION: Type 2 diabetes, hypertension, recent episode of meningitis/cerebritis tr eated to completion now with normal chest x-ray. Recommend consideration of switching to oral regime n either with quinolone or Augmentin or Omnicef for discharge planning.
[2018-01-05] MEDS: Simvastatin 20 MG TAB PO SCH (20:04)
[2018-01-06] MEDS: Cefepime 1 GM, Admixture Fee 1 EACH in Sodium Chloride 0.9% 10 ML SLOW IVP SCH ×3 (05:44→20:45)
[2018-01-06] MEDS: Levothyroxine 150 MCG TAB PO SCH (05:44)
[2018-01-06] MEDS: Lisinopril 20 MG TAB PO SCH (08:23)
[2018-01-06] MEDS: Ferrous Sulfate 325 MG TAB PO SCH (08:23)
[2018-01-06] MEDS: Fish Oil 1,000 MG CAP PO SCH (08:23)
[2018-01-06] MEDS: Folic Acid 1 MG TAB PO SCH (08:24)
[2018-01-06] MEDS: Cyanocobalamin (Vitamin B-12) 1,000 MCG TAB PO SCH (08:24)
[2018-01-06] MEDS: hydrALAZINE 25 MG TAB PO SCH ×3 (08:24→20:44)
[2018-01-06] MEDS: Aspirin 81 mg Enteric Coated Tablet PO SCH (08:24)
[2018-01-06] MEDS: Polyethylene Glycol 3350 17 GM Packet PO SCH (08:25)
[2018-01-06] MEDS: Ubidecarenone 50 MG CAP PO SCH (08:25)
[2018-01-06] MEDS: Divalproex Sodium DR 500 MG TAB PO SCH (20:44)
[2018-01-06] MEDS: Simvastatin 20 MG TAB PO SCH (20:44)
[2018-01-07] MEDS: Cefepime 1 GM, Admixture Fee 1 EACH in Sodium Chloride 0.9% 10 ML SLOW IVP SCH ×3 (05:47→20:47)
[2018-01-07] MEDS: Levothyroxine 150 MCG TAB PO SCH (05:47)
[2018-01-07 07:56] LABS: #Eosinphils 0.4 thou/uL (0.0-0.7); #Monocytes 0.6 thou/uL (0.11-0.59); #Neutrophils 3.4 thou/uL (1.40-6.50); %Basophils 0.8 % (0.0-1.0); %Eosinophils 6.9 % (0.0-10.0); %Lymphocytes 18.4 % (21.0-51.0); %Monocytes 11.5 % (0.0-10.0); %Neutrophils 62.3 % (42.0-75.0); Mean Corpuscular HGB CONC 31.5 g/dL (32.0-36.0); Mean Corpuscular Hemoglobin 25.5 pg (27.0-31.0); Mean Corpuscular Volume 80.8 fl (80.0-94.0); Mean Platelet Volume 9.5 fL (7.4-10.4); Platelet Count 202 thou/uL (130-400); RBC Distribution Width 17.9 % (11.5-14.5); Red Blood Cell (RBC) Count 3.54 mill/uL (4.70-6.10); White Blood Cell (WBC) Count 5.5 thou/uL (4.8-10.8)
[2018-01-07 08:01] LABS: Anion Gap 10 mmol/L (10-20); BUN (Urea Nitrogen) 27 mg/dL (8.4-25.7); Calc. Creatinine Clearance 44 mL/min (70-130); Calcium 9.3 mg/dL (7.8-10.44); Carbon Dioxide 27 mmol/L (23-31); Chloride 103 mmol/L (98-107); Estimated GFR-MDRD 39; Glucose 66 mg/dL (83-110); Sodium 135 mmol/L (136-145)
[2018-01-07] MEDS: hydrALAZINE 25 MG TAB PO SCH ×3 (08:14→20:47)
[2018-01-07] MEDS: Lisinopril 20 MG TAB PO SCH (08:14)
[2018-01-07] MEDS: Fish Oil 1,000 MG CAP PO SCH (08:14)
[2018-01-07] MEDS: Aspirin 81 mg Enteric Coated Tablet PO SCH (08:15)
[2018-01-07] MEDS: Ferrous Sulfate 325 MG TAB PO SCH (08:15)
[2018-01-07] MEDS: Cyanocobalamin (Vitamin B-12) 1,000 MCG TAB PO SCH (08:15)
[2018-01-07] MEDS: Folic Acid 1 MG TAB PO SCH (08:15)
[2018-01-07] MEDS: Ubidecarenone 50 MG CAP PO SCH (08:16)
[2018-01-07] MEDS: Polyethylene Glycol 3350 17 GM Packet PO SCH (08:16)
[2018-01-07] MEDS: Divalproex Sodium DR 500 MG TAB PO SCH (20:47)
[2018-01-07] MEDS: Simvastatin 20 MG TAB PO SCH (20:47)
[2018-01-08] MEDS: Levothyroxine 150 MCG TAB PO SCH (05:15)
[2018-01-08] MEDS: Cefepime 1 GM, Admixture Fee 1 EACH in Sodium Chloride 0.9% 10 ML SLOW IVP SCH ×3 (05:15→20:13)
[2018-01-08] MEDS: Polyethylene Glycol 3350 17 GM Packet PO SCH (09:15)
[2018-01-08] MEDS: Folic Acid 1 MG TAB PO SCH (09:16)
[2018-01-08] MEDS: Aspirin 81 mg Enteric Coated Tablet PO SCH (09:18)
[2018-01-08] MEDS: Ferrous Sulfate 325 MG TAB PO SCH (09:18)
[2018-01-08] MEDS: Cyanocobalamin (Vitamin B-12) 1,000 MCG TAB PO SCH (09:19)
[2018-01-08] MEDS: Ubidecarenone 50 MG CAP PO SCH (09:19)
[2018-01-08] MEDS: Fish Oil 1,000 MG CAP PO SCH (09:20)
[2018-01-08] MEDS: hydrALAZINE 25 MG TAB PO SCH ×3 (10:43→20:20)
[2018-01-08] MEDS: Lisinopril 20 MG TAB PO SCH (10:44)
[2018-01-08] MEDS ORDERED: hydrALAZINE 25 MG TAB PO SCH (15:45)
[2018-01-08] MEDS: Simvastatin 20 MG TAB PO SCH (20:12)
[2018-01-08] MEDS: Divalproex Sodium DR 500 MG TAB PO SCH (20:12)
[2018-01-09 05:00] LABS: #Eosinphils 0.2 thou/uL (0.0-0.7); #Lymphocytes 1.2 thou/uL (1.20-3.40); #Monocytes 0.6 thou/uL (0.11-0.59); #Neutrophils 2.7 thou/uL (1.40-6.50); %Basophils 0.1 % (0.0-1.0); %Eosinophils 5.1 % (0.0-10.0); %Lymphocytes 25.5 % (21.0-51.0); %Monocytes 13.2 % (0.0-10.0); Hemoglobin 9.4 g/dL (14.0-18.0); Mean Corpuscular HGB CONC 32.8 g/dL (32.0-36.0); Mean Corpuscular Hemoglobin 25.4 pg (27.0-31.0); Mean Corpuscular Volume 77.7 fl (80.0-94.0); Mean Platelet Volume 9.3 fL (7.4-10.4); Platelet Count 197 thou/uL (130-400); RBC Distribution Width 17.7 % (11.5-14.5); Red Blood Cell (RBC) Count 3.69 mill/uL (4.70-6.10); White Blood Cell (WBC) Count 4.8 thou/uL (4.8-10.8)
[2018-01-09 05:12] LABS: Anion Gap 9 mmol/L (10-20); BUN (Urea Nitrogen) 29 mg/dL (8.4-25.7); Calc. Creatinine Clearance 41 mL/min (70-130); Calcium 9.4 mg/dL (7.8-10.44); Carbon Dioxide 28 mmol/L (23-31); Chloride 102 mmol/L (98-107); Estimated GFR-MDRD 36; Glucose 70 mg/dL (83-110); Potassium 4.8 mmol/L (3.5-5.1); Sodium 134 mmol/L (136-145)
[2018-01-09] MEDS: Levothyroxine 150 MCG TAB PO SCH (05:36)
[2018-01-09] MEDS: Cefepime 1 GM, Admixture Fee 1 EACH in Sodium Chloride 0.9% 10 ML SLOW IVP SCH ×3 (05:37→20:19)
[2018-01-09] MEDS: Lisinopril 20 MG TAB PO SCH (08:45)
[2018-01-09] MEDS: Ubidecarenone 50 MG CAP PO SCH (08:45)
[2018-01-09] MEDS: Polyethylene Glycol 3350 17 GM Packet PO SCH (08:45)
[2018-01-09] MEDS: Folic Acid 1 MG TAB PO SCH (08:46)
[2018-01-09] MEDS: Fish Oil 1,000 MG CAP PO SCH (08:46)
[2018-01-09] MEDS: hydrALAZINE 25 MG TAB PO SCH ×3 (08:46→20:20)
[2018-01-09] MEDS: Ferrous Sulfate 325 MG TAB PO SCH (08:46)
[2018-01-09] MEDS: Cyanocobalamin (Vitamin B-12) 1,000 MCG TAB PO SCH (08:46)
[2018-01-09] MEDS: Aspirin 81 mg Enteric Coated Tablet PO SCH (08:46)
[2018-01-09] MEDS: Divalproex Sodium DR 500 MG TAB PO SCH (20:20)
[2018-01-09] MEDS: Simvastatin 20 MG TAB PO SCH (20:21)
[2018-01-10] MEDS: Cefepime 1 GM, Admixture Fee 1 EACH in Sodium Chloride 0.9% 10 ML SLOW IVP SCH ×3 (05:33→21:18)
[2018-01-10] MEDS: Levothyroxine 150 MCG TAB PO SCH (05:34)
[2018-01-10] MEDS: Polyethylene Glycol 3350 17 GM Packet PO SCH (08:58)
[2018-01-10] MEDS: hydrALAZINE 25 MG TAB PO SCH ×3 (08:59→21:11)
[2018-01-10] MEDS: Lisinopril 20 MG TAB PO SCH (09:00)
[2018-01-10] MEDS: Aspirin 81 mg Enteric Coated Tablet PO SCH (09:01)
[2018-01-10] MEDS: Fish Oil 1,000 MG CAP PO SCH (09:03)
[2018-01-10] MEDS: Ubidecarenone 50 MG CAP PO SCH (09:03)
[2018-01-10] MEDS: Ferrous Sulfate 325 MG TAB PO SCH (09:03)
[2018-01-10] MEDS: Folic Acid 1 MG TAB PO SCH (09:03)
[2018-01-10] MEDS: Cyanocobalamin (Vitamin B-12) 1,000 MCG TAB PO SCH (09:03)
[2018-01-10] MEDS ORDERED: risperiDONE 1 MG TAB PO SCH (21:00)
[2018-01-10] MEDS: Simvastatin 20 MG TAB PO SCH (21:12)
[2018-01-10] MEDS: Divalproex Sodium DR 500 MG TAB PO SCH (21:12)
[2018-01-11 05:46] LABS: Anion Gap 13 mmol/L (10-20); BUN (Urea Nitrogen) 32 mg/dL (8.4-25.7); Calc. Creatinine Clearance 38 mL/min (70-130); Calcium 9.6 mg/dL (7.8-10.44); Carbon Dioxide 23 mmol/L (23-31); Chloride 102 mmol/L (98-107); Estimated GFR-MDRD 33; Glucose 70 mg/dL (83-110); Potassium 4.8 mmol/L (3.5-5.1); Sodium 133 mmol/L (136-145)
[2018-01-11 06:04] LABS: Band 1 % (5-11); Eosinophils 4 % (0-10); Hemoglobin 9.9 g/dL (14.0-18.0); Lymphocytes 25 % (21-51); MDiff Complete? YES; Mean Corpuscular HGB CONC 32.3 g/dL (32.0-36.0); Mean Corpuscular Hemoglobin 25.6 pg (27.0-31.0); Mean Corpuscular Volume 79.4 fl (80.0-94.0); Mean Platelet Volume 10.2 fL (7.4-10.4); Monocytes 17 % (0-10); Neutrophil 52 % (42-75); Platelet Count 203 thou/uL (130-400); RBC Distribution Width 17.7 % (11.5-14.5); Red Blood Cell (RBC) Count 3.87 mill/uL (4.70-6.10); White Blood Cell (WBC) Count 5.1 thou/uL (4.8-10.8)
[2018-01-11] MEDS: Levothyroxine 150 MCG TAB PO SCH (06:09)
[2018-01-11] MEDS: Cefepime 1 GM, Admixture Fee 1 EACH in Sodium Chloride 0.9% 10 ML SLOW IVP SCH ×2 (06:09→14:15)
[2018-01-11] MEDS: Ubidecarenone 50 MG CAP PO SCH (08:08)
[2018-01-11] MEDS: Lisinopril 20 MG TAB PO SCH (08:08)
[2018-01-11] MEDS: Aspirin 81 mg Enteric Coated Tablet PO SCH (08:09)
[2018-01-11] MEDS: Cyanocobalamin (Vitamin B-12) 1,000 MCG TAB PO SCH (08:09)
[2018-01-11] MEDS: Polyethylene Glycol 3350 17 GM Packet PO SCH (08:09)
[2018-01-11] MEDS: hydrALAZINE 25 MG TAB PO SCH ×3 (08:09→20:07)
[2018-01-11] MEDS: Folic Acid 1 MG TAB PO SCH (08:09)
[2018-01-11] MEDS: Ferrous Sulfate 325 MG TAB PO SCH (08:09)
[2018-01-11] MEDS: Fish Oil 1,000 MG CAP PO SCH (08:09)
[2018-01-11] MEDS: Sodium Chloride 0.45% 1,000 ML IV SCH ×2 (10:53→21:20)
[2018-01-11] MEDS: Simvastatin 20 MG TAB PO SCH (20:07)
[2018-01-11] MEDS: Amoxicillin/Potassium Clav 875 MG TAB PO SCH (20:07)
[2018-01-11] MEDS ORDERED: Divalproex Sodium 250 MG (DR) TAB PO SCH (21:00)
[2018-01-12 04:51] LABS: #Eosinphils 0.2 thou/uL (0.0-0.7); #Lymphocytes 1.4 thou/uL (1.20-3.40); #Monocytes 0.7 thou/uL (0.11-0.59); #Neutrophils 2.8 thou/uL (1.40-6.50); %Basophils 0.5 % (0.0-1.0); %Eosinophils 4.6 % (0.0-10.0); %Lymphocytes 27.5 % (21.0-51.0); %Monocytes 13.7 % (0.0-10.0); %Neutrophils 53.6 % (42.0-75.0); Hemoglobin 9.9 g/dL (14.0-18.0); Mean Corpuscular HGB CONC 32.8 g/dL (32.0-36.0); Mean Corpuscular Hemoglobin 25.3 pg (27.0-31.0); Mean Corpuscular Volume 76.9 fl (80.0-94.0); Mean Platelet Volume 9.5 fL (7.4-10.4); Platelet Count 210 thou/uL (130-400); RBC Distribution Width 17.6 % (11.5-14.5); Red Blood Cell (RBC) Count 3.93 mill/uL (4.70-6.10); White Blood Cell (WBC) Count 5.2 thou/uL (4.8-10.8)
[2018-01-12 05:07] LABS: Anion Gap 11 mmol/L (10-20); BUN (Urea Nitrogen) 31 mg/dL (8.4-25.7); Calc. Creatinine Clearance 40 mL/min (70-130); Calcium 9.6 mg/dL (7.8-10.44); Carbon Dioxide 24 mmol/L (23-31); Chloride 103 mmol/L (98-107); Estimated GFR-MDRD 34; Glucose 70 mg/dL (83-110); Potassium 4.7 mmol/L (3.5-5.1); Sodium 133 mmol/L (136-145)
[2018-01-12] MEDS: Levothyroxine 150 MCG TAB PO SCH (05:31)
[2018-01-12 07:33] VITALS: BP 151/78; TEMP 98.1
[2018-01-12] MEDS: Polyethylene Glycol 3350 17 GM Packet PO SCH (07:36)
[2018-01-12] MEDS: Sodium Chloride 0.45% 1,000 ML IV SCH (07:36)
[2018-01-12] MEDS: Ubidecarenone 50 MG CAP PO SCH (07:38)
[2018-01-12] MEDS: hydrALAZINE 25 MG TAB PO SCH (07:38)
[2018-01-12] MEDS: Ferrous Sulfate 325 MG TAB PO SCH (07:38)
[2018-01-12] MEDS: Fish Oil 1,000 MG CAP PO SCH (07:38)
[2018-01-12] MEDS: Folic Acid 1 MG TAB PO SCH (07:38)
[2018-01-12] MEDS: Aspirin 81 mg Enteric Coated Tablet PO SCH (07:39)
[2018-01-12] MEDS: Amoxicillin/Potassium Clav 875 MG TAB PO SCH (07:39)
[2018-01-12] MEDS: Lisinopril 20 MG TAB PO SCH (07:39)
[2018-01-12] MEDS: Cyanocobalamin (Vitamin B-12) 1,000 MCG TAB PO SCH (07:40)
--- NOTE | 2018-01-13 11:47 | DIS ---
DATE OF ADMISSION: 01/02/2018 DATE OF DISCHARGE: 01/12/2018 ADMITTING DIAGNOSES: 1. Pneumonia, right lower lobe. 2. Acute metabolic encephalopathy. 3. Hypothyroidism. 4. Hypertension. 5. History of meningitis, treated. 6. Chronic anemia. 7. Bipolar disorder. 8. Chronic kidney disease stage 3. 9. Recent acute kidney injury. FINAL DIAGNOSES: 1. Possible pneumonia, aspiration. 2. Acute metabolic encephalopathy, improved. 3. Chronic anemia. 4. Acute kidney injury, improved. 5. Chronic kidney disease stage 3. 6. Deconditioning. 7. Unstable gait. 8. Generalized weakness. 9. Aseptic meningitis, treated. 10. Hypothyroidism. BRIEF SUMMARY OF HOSPITAL COURSE: Mr. Brian is a 77-year-old -[place]yp[place] male who was in the rehab recently treated for meningitis, came with fever and cough. The patient was found to have pneu monia, possibly aspiration in the right lower lobe, so he was started on broad spectrum antibiotics i ncluding cefepime and vancomycin. Also recent hospital stay in the rehabilitation and consultation w as done with Infectious Disease. The patient was seen by Dr. Munson and suggested to continue with br oad spectrum antibiotics for possible aspiration pneumonia. A modified barium swallow was done to ev aluate his swallowing. There was no evidence of any aspiration on the modified barium swallow study. The patient was continued on IV antibiotics and his fever resolved. Then, his antibiotic was switc hed to the oral medication. The patient is still not able to ambulate on his own, not able to get ou t of the bed, thus he was started on physical therapy and he was evaluated for a senior living plac ement and he was accepted at [facility]. The patient is being transferred there. At the time of transfer, he was stable. His vital signs were stable. Lungs were clear. Heart sounds regul ar. Abdomen is soft, nontender. Bowel sounds present. DISCHARGE MEDICATIONS: Include ferrous sulfate 325 mg daily, vitamin B12 1000 mcg daily, fish oil da fernanda 1000 mg, vitamin D 5000 units daily, Coenzyme Q daily, folic acid 1 mg daily, aspirin 81 mg daily , lisinopril 40 mg daily, simvastatin 20 mg daily, Augmentin 875 b.i.d. for 10 days, DuoNeb q.i.d. p. r.n., MiraLax 17 grams daily, metoprolol 12.5 mg daily, levothyroxine 125 mcg daily, hydralazine 50 t .i.d., Depakote 250 at bedtime. His Risperdal was held. The [facility] the [facility].
== END 2018-01-12 14:17 | DRG 177 ==
LOC: ERS 10:09 → T4-A 11:13
PROVIDERS: ADMIT Internal Medicine; ATTEND Internal Medicine
PROC: 30233N1 Transfusion of Nonautologous Red Blood Cells into Peripheral Vein, Percutaneous Approach (ICD-10-PCS; principal; 2018-01-03)
DX: J69.0 Pneumonitis due to inhalation of food and vomit (principal); G93.41 Metabolic encephalopathy; N17.9 Acute kidney failure, unspecified; E11.22 Type 2 diabetes mellitus with diabetic chronic kidney disease; E86.0 Dehydration; D64.9 Anemia, unspecified; E03.9 Hypothyroidism, unspecified; F31.9 Bipolar disorder, unspecified; I12.9 Hypertensive chronic kidney disease with stage 1 through stage 4 chronic kidney disease, or unspecified chronic kidney disease; N18.3 Chronic kidney disease, stage 3 (moderate); F41.9 Anxiety disorder, unspecified; Z79.82 Long term (current) use of aspirin; R26.81 Unsteadiness on feet; E78.5 Hyperlipidemia, unspecified
CPT/HCPCS: 36415; 36416; 36430; 51701; 70450; 71045; 74230; 80048; 80053; 80306; 80307; 81003; 81015; 82140; 82274; 82553; 83605; 83690; 83880; 84439; 84443; 84484; 85025; 85610; 85730; 86850; 86900; 86901; 87040; 87804; 87899; 93005; 93970; 94640; 94760; 96365; A4216; G8978-GP-CL; G8979-GP-CJ; G8996-GN-CJ; G8996-GN-CN; G8997-GN-CI; G8997-GN-CJ; J0692; J1815; J1956; J3370; J7620; P9016

== ENCOUNTER 2018-05-11 08:19 | Outpatient (CLI) | payer MEDICARE, OTHER ==
[2018-05-11] MEDS ORDERED: ISOVUE-370 76%-LOCM 1 ML ONE (13:52)
== END 2018-05-11 08:20 | disposition home or self-care (01) ==
LOC: BICCT 08:19
PROVIDERS: ATTEND Urology
DX: N28.89 Other specified disorders of kidney and ureter (principal); K80.20 Calculus of gallbladder without cholecystitis without obstruction; E11.9 Type 2 diabetes mellitus without complications; K57.30 Diverticulosis of large intestine without perforation or abscess without bleeding; K44.9 Diaphragmatic hernia without obstruction or gangrene
CPT/HCPCS: 36415; 71046; 74170; 80048; 81001

== ENCOUNTER 2018-11-16 09:22 | Outpatient (CLI) | payer MEDICARE, OTHER ==
--- NOTE | 2018-11-16 11:35 | ULT ---
ULTRASOUND RENAL BILATERAL: HISTORY: Renal mass. COMPARISON: Multiple prior CT examinations, the most recent 05/11/2018. FINDINGS: The right kidney measures 10.5 x 4.1 x 4.8 cm. The left kidney measures 10.5 x 4.4 x 6.3 cm. Simple cyst left kidney inferior pole measuring a centimeter. There is a complex cyst interpolar region of the right kidney anterior cortex measuring up to 1.3 cm internal septation and peripheral nodularity . There is what appears to be dystrophic calcification posterior cortex superior pole right kidney. IMPRESSION: 1. 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 This has not significantly grown f rom 2017. Followup ultrasound in 6 months to a year is recommended. 2. Simple cyst left kidney. 3. Likely treatment changes of the superior pole right kidney. POS: [facility]
== END 2018-11-16 09:23 | disposition home or self-care (01) ==
LOC: BICULT 09:22
PROVIDERS: ATTEND Urology
DX: N28.89 Other specified disorders of kidney and ureter (principal); N28.1 Cyst of kidney, acquired
CPT/HCPCS: 76770

== ENCOUNTER 2019-04-02 16:36 | Inpatient (IN) | payer MEDICARE, OTHER ==
[2019-04-02] MEDS ORDERED: Ibuprofen 200 MG TAB ONE (16:43)
--- NOTE | 2019-04-02 17:27 | RAD ---
Exam: Chest one view HISTORY:Fever. Weakness. Comparison: 01/02/2018 FINDINGS: Cardiac silhouette:Upper normal cardiac silhouette. Atherosclerosis of the aorta. Pulmonary vessels: Normal Costophrenic angles: Clear Stable surgical clips along the medial left lung apex. LUNGS: No masses or consolidation. Pneumothorax: None Osseous abnormalities: None IMPRESSION: No acute cardiopulmonary process.
[2019-04-02 17:43] LABS: #Eosinphils 0.4 thou/uL (0.0-0.7); #Lymphocytes 0.8 thou/uL (1.20-3.40); #Monocytes 0.7 thou/uL (0.11-0.59); #Neutrophils 4.7 thou/uL (1.40-6.50); %Basophils 0.1 % (0.0-1.0); %Eosinophils 6.2 % (0.0-10.0); %Monocytes 10.8 % (0.0-10.0); %Neutrophils 70.9 % (42.0-75.0); Hemoglobin 9.3 g/dL (14.0-18.0); Mean Corpuscular HGB CONC 32.5 g/dL (32.0-36.0); Mean Corpuscular Hemoglobin 23.9 pg (27.0-31.0); Mean Corpuscular Volume 73.5 fL (78.0-98.0); Platelet Count 126 thou/uL (130-400); RBC Distribution Width 12.7 % (11.5-14.5); Red Blood Cell (RBC) Count 3.88 mill/uL (4.70-6.10); White Blood Cell (WBC) Count 6.6 thou/uL (4.8-10.8)
[2019-04-02 18:10] LABS: ALT (SGPT) 10 U/L (8-55); AST (SGOT) 26 U/L (5-34); Albumin 3.5 g/dL (3.4-4.8); Alkaline Phosphatase 38 U/L (40-150); Anion Gap 15 mmol/L (10-20); BUN (Urea Nitrogen) 26 mg/dL (8.4-25.7); Bilirubin, Total 0.4 mg/dL (0.2-1.2); Calc. Creatinine Clearance 0 mL/min (70-130); Calcium 8.6 mg/dL (7.8-10.44); Carbon Dioxide 20 mmol/L (23-31); Chloride 106 mmol/L (98-107); Estimated GFR-MDRD 34; Globulin 3.3 g/dL (2.4-3.5); Glucose 83 mg/dL (83-110); Potassium 5.2 mmol/L (3.5-5.1); Protein, Total 6.8 g/dL (5.8-8.1); Sodium 136 mmol/L (136-145)
[2019-04-02] MEDS ORDERED: cefTRIAXone\\ROCEPHIN 1 GM VIAL ONE (20:46)
--- NOTE | 2019-04-02 21:03 | CT ---
Exam: Abdomen CT without contrast Pelvic CT without contrast HISTORY: Abdominal pain. Fever. Eval for renal calculi. COMPARISON: 05/11/2018 FINDINGS: Abdomen CT: Lung bases:Chronic changes. Right lower lobe atelectasis is noted. Heart size: Cardiomegaly Aorta: Atherosclerosis. No periaortic fat stranding. Solid organs: Limited in evaluation due to lack of IV contrast. Grossly no solid organ abnormality. Lymph nodes: No gastrohepatic, retrocrural or periportal lymphadenopathy Gallbladder: Distended with sludge and multiple gallstones. Gallbladder wall does not appear to be th ickened. Mesentery: No mass, lymphadenopathy, free air or free fluid Kidneys: Punctate calcifications in the upper pole the right kidney are felt to be associated with th e cortex, rather than the intrarenal collecting system. Bilaterally no hydronephrosis, nephrolithiasis or perinephric fat stranding. Bilateral ureters have a normal caliber. No hydroureter , periureteral fat stranding or ureterolithiasis. Alimentary canal: Limited evaluation due to technique. No evidence of high-grade small bowel obstruct ion. Ileocecal junction is normal. Normal caliber appendix. Scattered fecal material in a nondistended, nondilated colon. There is diverticulosis, without evidence of diverticulitis CT PELVIS: No mass, adenopathy, free air or free fluid. Calcifications in a slightly prominent prostate gland Urinary bladder: Unremarkable. Osseous structures: No lytic or blastic lesions IMPRESSION: 1. No acute abnormality in the abdomen or pelvis. 2. No evidence of obstructive uropathy 3. Normal caliber appendix. 4. Diverticulosis, without evidence of diverticulitis 5. Redemonstration of multiple gallstones and sludge within the lumen of the gallbladder.
[2019-04-02 21:43] LABS: Bilirubin Negative (Negative); Blood, Urine Negative (Negative); Clarity Clear (Clear); Glucose, Urine (Dipstick) Normal (Negative); Leukocyte Negative Leu/uL (Negative); Nitrite Negative (Negative); Protein, Urine (Dipstick) 50 mg/dL (Neg-Trace); RBC/HPF 0-3 HPF (0-3); Urobilinogen Normal mg/dL (Less than 2); WBC/HPF 0-3 HPF (0-3)
[2019-04-02 21:45] LABS: Bacteria/HPF None Seen HPF (None Seen)
--- NOTE | 2019-04-02 23:16 | ULT ---
EXAM: US Gallbladder RUQ CLINICAL HISTORY: Fever. Abdominal pain.. COMPARISON: None. FINDINGS: Pancreas: Visualized pancreas has a normal echotexture. Liver:Normal parenchymal echotexture. No hepatic masses or intrahepatic biliary dilatation. The conto ur of the hepatic margins maintained. Right hepatic lobe measures 18.3 cm Portal vein: Patent with appropriate directional flow Gallbladder: Sludge and stones within the lumen of the gallbladder. Gallbladder is mildly distended m easuring 10.8 cm. Nevertheless, gallbladder wall is not thickened. No pericholecystic fluid. Leal's sign:Negative Bile ducts: Common bile duct is dilated measuring 0.9 cm Right kidney: No hydronephrosis. Cortical calcification measuring 0.9 cm noted. Hypoechoic focus in t he right kidney measuring 1.9 x 1.3 x 1.4 cm is incompletely characterized.. Right kidney measures 10.2 cm cm in length. IMPRESSION: 1. Sonographic evidence of cholelithiasis and sludge. No sonographic evidence of cholecystitis. 2. Dilatation of the common bile duct. Correlate clinically for choledocholithiasis. CT performed ear lier today does not demonstrate an obvious calculus in the expected course of the common bile duct. ERCP or MRCP may be beneficial. 3. Right renal cortical findings as above. No significant change since renal ultrasound from 9
[2019-04-02] MEDS ORDERED: metroNIDAZOLE 500 MG in Premix Bag 1 BAG IVPB SCH (23:45)
[2019-04-03] MEDS ORDERED: Lactated Ringer's 1,000 ML IV SCH (01:15)
[2019-04-03] MEDS ORDERED: Ondansetron PF 4 MG/2 ML Vial IVP PRN (01:17)
[2019-04-03] MEDS ORDERED: Ondansetron ODT 4 MG TAB SL PRN (01:17)
[2019-04-03 01:53] VITALS: BMI 26.3
[2019-04-03 02:02] LABS: ALT (SGPT) 7 U/L (8-55); AST (SGOT) 14 U/L (5-34); Albumin 3.3 g/dL (3.4-4.8); Alkaline Phosphatase 38 U/L (40-150); Anion Gap 10 mmol/L (10-20); BUN (Urea Nitrogen) 25 mg/dL (8.4-25.7); Bilirubin, Total 0.4 mg/dL (0.2-1.2); Calc. Creatinine Clearance 37 mL/min (70-130); Calcium 8.9 mg/dL (7.8-10.44); Carbon Dioxide 26 mmol/L (23-31); Chloride 108 mmol/L (98-107); Estimated GFR-MDRD 37; Globulin 2.8 g/dL (2.4-3.5); Glucose 84 mg/dL (83-110); Potassium 4.6 mmol/L (3.5-5.1); Protein, Total 6.1 g/dL (5.8-8.1); Sodium 139 mmol/L (136-145)
[2019-04-03] MEDS: Piperacillin/Tazobactam 3.375 GM in Sodium Chloride 0.9% 100 ML IVPB SCH ×3 (03:15→20:29)
[2019-04-03] MEDS ORDERED: Dextrose 50% Abboject 50 ML SYRINGE SLOW IVP SCH (06:15)
[2019-04-03] MEDS: Dextrose 5 %-0.45 % NaCl 1,000 ML IV SCH ×2 (06:18→18:15)
[2019-04-03 08:13] LABS: ALT (SGPT) 8 U/L (8-55); AST (SGOT) 16 U/L (5-34); Albumin 3.3 g/dL (3.4-4.8); Alkaline Phosphatase 38 U/L (40-150); Anion Gap 11 mmol/L (10-20); BUN (Urea Nitrogen) 22 mg/dL (8.4-25.7); Bilirubin, Total 0.4 mg/dL (0.2-1.2); Calc. Creatinine Clearance 42 mL/min (70-130); Carbon Dioxide 23 mmol/L (23-31); Chloride 107 mmol/L (98-107); Estimated GFR-MDRD 42; Glucose 116 mg/dL (83-110); Potassium 4.2 mmol/L (3.5-5.1); Protein, Total 6.3 g/dL (5.8-8.1); Sodium 137 mmol/L (136-145)
[2019-04-03] MEDS ORDERED: Dextrose 5% in Water 1,000 ML IV PRN (10:50)
[2019-04-03] MEDS ORDERED: Dextrose 50% Abboject 50 ML SYRINGE IVP PRN (10:50)
[2019-04-03] MEDS: Insulin Regular 300 UNITS/3 ML VIAL SC PRN (12:06)
[2019-04-03] MEDS: hydrALAZINE 25 MG TAB PO SCH ×2 (16:03→20:27)
--- NOTE | 2019-04-03 18:41 | HP ---
CHIEF COMPLAINT: Fever. HISTORY OF PRESENT ILLNESS: Mr. Brian is a 78-year-old from male, with past medical history of bipolar disorder, hypertension, hypothyroidism, was noted to have temperature of 101.9 degrees yesterday. The patient is not complaining of any cough. No chest pain. No shortness of breath. No nausea or vomiting. No dysuria, but the patient feeling weak and confused and lethargic. and fever. The patient was brought to the emergency room, where he was evaluated, had normal urine and chest x-ray. CT scan showed cholelithiasis with sludge in the gallbladder. The patient was also noted to have temperature of 102.4 in the ER. The patient received dose of Flagyl and Rocephin in the ER and admitted for further evaluation and management. PAST MEDICAL HISTORY: 1. Hypertension. 2. Hypothyroidism. 3. Bipolar disorder. 4. Chronic kidney disease, stage 3. 5. History of meningitis. 6. Diabetes mellitus. 7. Colon diverticulosis. 8. History of atrial flutter. PAST SURGICAL HISTORY: Status post partial thyroidectomy, status post ablation of atrial flutter. CURRENT MEDICATIONS: The patient is on; 1. Aspirin 81 mg daily. 2. Vitamin D 5000 units daily. 3. Vitamin B12 1000 mcg daily. 4. Depakote 250 mg at bedtime. 5. Folic acid 1 mg daily. 6. Hydralazine 50 mg t.i.d. 7. DNS q.i.d. p.r.n. 8. Depakote 250 mg bid 9. Levothyroxine 150 mcg daily. 10. Lisinopril 40 mg daily. 11. Metoprolol 12.5 mg daily. 12. MiraLAX 17 g daily. 13. Simvastatin 20 mg daily. 14. Coenzyme daily. ALLERGIES: NKDA. FAMILY HISTORY: Nothing significant. SOCIAL HISTORY: The patient lives with family. No history of smoking. No history of alcohol. REVIEW OF SYSTEMS: CARDIOVASCULAR: No chest pain. No shortness of breath. RESPIRATORY: Has cough, productive of white sputum and fever. GASTROINTESTINAL: No nausea or vomiting. No abdominal pain. CENTRAL NERVOUS SYSTEM: No headache. No dizziness. PHYSICAL EXAMINATION: GENERAL: The patient is alert, awake, oriented x3. VITAL SIGNS: Temperature 102.4, pulse 85, respiratory rate 19, blood pressure 150/70. HEENT: Head is normocephalic and atraumatic. Pupils are equal and reactive. Nasopharynx is pale and dry. Hard and soft palate. No lesions. SKIN: Turgor decreased. NECK: Supple. No JVD. LUNGS: Bilateral air entry with no rales and no rhonchi. HEART: Regular. ABDOMEN: Soft. No distention. No tenderness. No organomegaly. Bowel sounds present. RECTAL: Deferred. CENTRAL NERVOUS SYSTEM: No focal deficit. SKIN: Areas on the both legs reveal multiple blisters like lesions present in both lower legs somewhat dry with darkish pigmentation. LABORATORY DATA: CBC shows WBC 6.6, hemoglobin 9.3, hematocrit 28, platelets 126. Metabolic panel; sodium 136, potassium 5, chloride 106, CO2 of 20, BUN 26, creatinine 2.2, glucose 83. Urinalysis negative. Chest x-ray negative. Abdominal ultrasound revealed cholelithiasis, but no cholecystitis. ASSESSMENT: 1. Fever, etiology not clear. 2. Cholelithiasis sludge and dilated common bile duct. 3. Multiple blister-like lesions, both lower legs and both thighs. 4. Hypertension. 5. Hypothyroidism. 6. Bipolar disorder. 7. Encephalopathy, metabolic. PLAN: 1. Vital signs q.4 hours. 2. Activity as tolerated. 3. Allergies, NKDA. 4. Hep-Lock. 5. Zosyn 3.375 g IV piggyback q.6 hours. 6. Diet, ADA. 7. Continue home medications. 8. Blood cultures. 9. Zosyn 3.375 g IV piggyback q.[address] Munson. 11. Consult GI. Job ID: [id number] [facility]
[2019-04-03] MEDS: Atorvastatin Calcium 10 MG TAB PO SCH (20:27)
[2019-04-03] MEDS: risperiDONE 1 MG TAB PO SCH (20:27)
[2019-04-03] MEDS: Divalproex Sodium 250 MG (DR) TAB PO SCH ×3 (20:28→21:34)
[2019-04-04] MEDS: Piperacillin/Tazobactam 3.375 GM in Sodium Chloride 0.9% 100 ML IVPB SCH ×4 (03:15→20:44)
[2019-04-04] MEDS: Levothyroxine 150 MCG TAB PO SCH (05:40)
[2019-04-04 06:10] LABS: Anion Gap 13 mmol/L (10-20); BUN (Urea Nitrogen) 17 mg/dL (8.4-25.7); Calc. Creatinine Clearance 42 mL/min (70-130); Calcium 8.8 mg/dL (7.8-10.44); Carbon Dioxide 22 mmol/L (23-31); Chloride 104 mmol/L (98-107); Estimated GFR-MDRD 43; Glucose 98 mg/dL (83-110); Potassium 4.1 mmol/L (3.5-5.1); Sodium 135 mmol/L (136-145)
[2019-04-04 06:12] LABS: #Eosinphils 0.7 thou/uL (0.0-0.7); #Lymphocytes 1.3 thou/uL (1.20-3.40); #Monocytes 0.8 thou/uL (0.11-0.59); %Basophils 0.7 % (0.0-1.0); %Eosinophils 11.6 % (0.0-10.0); %Lymphocytes 23.1 % (21.0-51.0); %Monocytes 13.1 % (0.0-10.0); %Neutrophils 51.6 % (42.0-75.0); Hemoglobin 11.3 g/dL (14.0-18.0); Mean Corpuscular HGB CONC 31.9 g/dL (32.0-36.0); Mean Corpuscular Hemoglobin 24.1 pg (27.0-31.0); Mean Corpuscular Volume 75.6 fL (78.0-98.0); Mean Platelet Volume 7.1 fL (7.4-10.4); Platelet Count 113 thou/uL (130-400); Platelet Morphology Comment Appears Decreased; RBC Distribution Width 12.8 % (11.5-14.5); Red Blood Cell (RBC) Count 4.66 mill/uL (4.70-6.10); White Blood Cell (WBC) Count 5.8 thou/uL (4.8-10.8)
[2019-04-04 06:15] LABS: Free T4 (Free Thyroxine) 0.99 ng/dL (0.70-1.48); Thyroid Stimulating Hormone 10.535 uIU/mL (0.35-4.94)
[2019-04-04] MEDS: Dextrose 5 %-0.45 % NaCl 1,000 ML IV SCH ×2 (08:38→20:42)
[2019-04-04] MEDS: Divalproex Sodium 250 MG (DR) TAB PO SCH ×2 (08:39→20:45)
[2019-04-04] MEDS: hydrALAZINE 25 MG TAB PO SCH ×3 (08:40→20:45)
[2019-04-04] MEDS: Fish Oil 1,000 MG CAP PO SCH (08:40)
[2019-04-04] MEDS: Aspirin Chewable 81 MG TAB PO SCH (08:40)
[2019-04-04] MEDS: Ubidecarenone 50 MG CAP PO SCH (08:40)
[2019-04-04] MEDS: Cyanocobalamin (Vitamin B-12) 1,000 MCG TAB PO SCH (08:40)
[2019-04-04] MEDS: Lisinopril 20 MG TAB PO SCH (08:41)
[2019-04-04] MEDS: Ferrous Sulfate 325 MG TAB PO SCH (08:41)
[2019-04-04] MEDS: Folic Acid 1 MG TAB PO SCH (08:41)
[2019-04-04] MEDS: Furosemide 40 MG TAB PO SCH (08:42)
[2019-04-04] MEDS: Polyethylene Glycol 3350 17 GM Packet PO SCH (08:42)
--- NOTE | 2019-04-04 10:51 | CON ---
DATE OF CONSULTATION: 04/03/2019 REASON FOR CONSULTATION: Abnormal abdominal sonogram showing multiple gallstones and mildly dilated CBD. HISTORY OF PRESENT ILLNESS: Mr. Eliceo Brian a 78-year-old male, seen in the room this morning. He appears very comfortable. He denies abdominal pain, nausea, or vomiting. He actually feels hungry. The patient was brought to the ER by the family yesterday because of mild confusion and disorientation and fever of 101 degrees Fahrenheit. He has had mild cough with mucoid expectoration. The patient had no abdominal pain whatsoever. There is no nausea or vomiting. He had abdominal sonogram done and also abdominal CAT scan yesterday. The abdominal sonogram shows multiple gallstones and also mildly dilated CBD at 9 mm. However, liver function tests are normal. Abdomen has bowel sounds present. The patient had no GI symptoms whatsoever. His bowel movements are fairly regular. No hematochezia. No melena. The patient denies any dysuria, hematuria or frequent urination. No history of diarrhea. His fever has actually come down today. Temperature 98.1 degrees Fahrenheit. The patient has no prior history of abdominal pain, nausea, or vomiting. He has no relevant history. ALLERGIES: NONE. SOCIAL HISTORY: The patient lives in [place] with the family. He denies any alcohol abuse. He denies any drug abuse. No history of smoking. MEDICAL ILLNESSES: 1. Hypertension. 2. Diabetes mellitus. 3. Hyperlipidemia. 4. Bipolar disorder and does see Dr. Grant Rodriguez, his psychiatrist. 5. He denies history of any heart disease. Denies history of lung disease. Apparently, he was told he has some kidney infection and he is supposed to see a lapidarist next month. At the present, he has no urinary symptoms. SURGERIES: No major surgeries. MEDICATION LIST: Reviewed. REVIEW OF SYSTEMS: A 10-point system reviewed. INSPECTOR BALANCE TRUING: No TIA. No seizure disorder. No chronic headache. No syncope. HEAD: No head injury. No headache. EYES: No diplopia. No impaired vision. EAR, NOSE, THROAT: No pain in the ears. No nose bleed. No sore throat. LUNGS: Have had mild coughing . No hemoptysis. CARDIOVASCULAR: No chest pain. No palpitation. No exertion dyspnea, orthopnea, or PND. GI: No abdominal pain. No nausea. No vomiting. No diarrhea, no hematochezia, no melena. : No dysuria or hematuria. MUSCULOSKELETAL: Unremarkable. NEUROLOGIC: Unremarkable. ENDOCRINE: Unremarkable. PHYSICAL EXAMINATION: GENERAL: He is a very pleasant, elderly black male, appears very comfortable. He is awake, alert, oriented to place and person. He denies abdominal pain. VITAL SIGNS: Stable. This morning, he has no fever, temperature 98.5 degrees Fahrenheit, pulse is 55, blood pressure 150/77. HEENT: Conjunctivae are clear. NECK: Supple. No adenitis or thyromegaly noted. CARDIOVASCULAR: First and second heart sounds are normal. LUNGS: Clear to auscultation. ABDOMEN: Soft and nondistended. Abdomen is nontender. No organomegaly or masses. Bowel sounds normal. EXTREMITIES: Reveal no edema. LABORATORY DATA: Shows CBC to be normal at WBC 6600, polymorphs 70, lymphocytes 12, monocytes 10. Hemoglobin 9.3, hematocrit 28.5. MCV 73.5, platelet count 126,000, which is slightly low. His Chem-7 is actually normal. BUN is 22. Creatinine is 2.13, has come down to 1.89. Glucose 116, calcium 9, bilirubin 0.4, AST 16, ALT 8, alkaline phosphatase 38. BNP 268, albumin 3.3. Abdominal sonogram showed gallstones and CBD at 9 mm. The CAT scan showed the same findings. CLINICAL IMPRESSION: 1. A 78-year-old black male with fever and cough with mucoid expectoration. He had imaging studies because of fever, and the imaging study showed gallstone. However, the gallstone is asymptomatic. He has no abdominal pain. No nausea whatsoever. Gallstone is an incidental finding. Given his liver function tests are normal, CBD stone. 2. Mild anemia with microcytic indices. 3. Hypertension. 4. Hyperlipidemia. 5. Bipolar disorder. RECOMMENDATIONS: 1. . 2. Diet as tolerated. 3. May consider Surgical consult for possible cholecystectomy. 4. Obtain stool for Hemoccult testing and if it comes positive, may consider GI workup. Job ID: [id number]
[2019-04-04] MEDS: Insulin Regular 300 UNITS/3 ML VIAL SC PRN (12:26)
--- NOTE | 2019-04-04 13:58 | CT ---
Exam: Chest CT scan without IV contrast: HISTORY: Cough, abnormal lung physical exam COMPARISON: Chest one view, 04/02/[address] scan, 04/02/2019 FINDINGS: There is some subtle nonspecific groundglass opacity changes in the right upper lobe possibly mild pn eumonitis. There is also some patchy groundglass opacity changes in the left lower lobe with a small irregular a lveolar density, again I favor this to be a small patch of atypical pneumonia or pneumonitis. Very small right pleural effusion/posterior pleural thickening. Small hiatal hernia. Atherosclerosis of the aorta. 3 vessel coronary calcific disease. Visualized upper abdomen is unremarkable. IMPRESSION: Some subtle diffuse groundglass opacity changes in the right upper lobe and left lower lobe possibly representing atypical pneumonia or pneumonitis. Minimal pleural fluid/pleural thickening in the right chest base. Other findings as above.
--- NOTE | 2019-04-04 17:30 | CON ---
DATE OF CONSULTATION: REASON FOR CONSULTATION: Fever, altered mental status, and renal insufficiency. HISTORY OF PRESENT ILLNESS: A 78-year-old patient, whom I had seen in 2018, when he presented with a history of type 2 diabetes, hyperlipidemia, and bipolar disorder. In October 2017, he developed altered mental status with abnormal CSF. There was extreme elevation of WBC count with severe hypoglycorrhachia and cultures were negative. 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 He was given Rocephin for another few weeks with resolution of the process. One month later in December the same year, he was readmitted with what appeared to be an episode of aspiration pneumonitis. He did have a barium swallow, which did not show any evidence of aspiration. This time, he presents because he was developing fever at home up to 102 almost, had some altered mental status and was having coughing spells, but no sputum production. No headaches. No visual symptoms, sore throat, odynophagia, or dysphagia. No back pain. No dyspnea. No abdominal pain. No genitourinary symptoms. Some loose stool intermittently. On arrival, his temperature was 102.4, pulse 85, respirations 19, and BP 150/70, and the exam was remarkable for pretty much normal findings throughout except for blisters in the skin of the legs and upper extremities as well. Those are described below. Initial laboratory results included a white cell count 6.6, hemoglobin 9.3, MCV 73, and platelets 126,000. Currently, Mr. Brian is awake. He is more oriented, seems like back to normal. He denies any headaches. Otherwise, still a little bit of cough, but no sputum production. All other 10-point review of system items are negative. PAST MEDICAL HISTORY: Type 2 diabetes, encephalitis, meningitis, hypertension, atrial flutter, diverticulosis, pneumonia, bipolar disorder, hypothyroidism, and hypertension. PAST SURGICAL HISTORY: Thyroidectomy and atrial flutter ablation. ALLERGIES: NONE. FAMILY HISTORY: Noncontributory. SOCIAL HISTORY: Retired, lives in I believe in [place] with family members. No smoking. No alcoholic beverage use. PHYSICAL EXAMINATION: VITAL SIGNS: Temperature max 98.7, BP 170/74, pulse 72, respirations 18, and O2 saturation 96. SKIN: Remarkable for 2 areas with blistering, which is somewhat flaccid, but still with fluid content measuring about 1.5 cm, one in the left medial malleolus region and the other in the right leg anterior aspect. He also has blisters that have been unroof and have a thick scab covering the base, which is dark in color in the groin area, inner aspect of the right and left thighs. Similar finding as noted in the left wrist. The patient has a peripheral IV access and is urinating in the toilet. HEENT: No lymphadenopathy. Alopecia. Ocular movements conjugate. Sclerae white. Pupils are equal. Nasal passages are patent. Ear examination was normal. Oral cavity, still quite a few teeth in place with the expected gum resorption. No oral lesions otherwise. NECK: Supple. No jugular vein distention or carotid bruits. LUNGS: With faint expiratory wheezing noted particularly in the right base. HEART: S1 and S2. Regular rate without murmurs. ABDOMEN: Soft, not distended or tender. No ascites. No bladder distention. EXTREMITIES: Some osteoarthrosis in knees and ankles. Pulses are 1+ in dorsalis pedis. Able to move extremities on command. Plantar response are flexor. No clonus. NEUROLOGIC: He knows his name, recognizes family. He knew he was in the hospital at [facility]. Had some difficulty in telling me the date. His ability to provide an account of his illness is quite limited due to recollection problems. Speech appears to be normal. LABORATORY DATA: Sodium 136 and creatinine 2.25, now down to 1.87. Liver profile has been normal throughout. Albumin was 3.5 and now is down to 3.3. Globulin was 3.3. Urinalysis was fairly normal. White cell count started at 6.6 and now 5.8, hemoglobin 11.3, MCV 75, and platelets are down to 113,000 with a normal differential. Microbiology with one or two sets of blood cultures with coagulase-negative Staphylococcus, probably contaminant. Influenza negative. Urine culture, no growth at 12 hours and the stool for occult blood was negative. IMAGING STUDIES: Include chest x-ray without infiltrates. Abdomen and pelvis CT with common bile duct at 0.9 cm and gallstones, but no thickening of the gallbladder. No urinary obstruction. ASSESSMENT: 1. Type 2 diabetes, prior episode of meningitis/encephalitis treated last year with resolution. 2. Episode of pneumonia in December last year. 3. Fever with cough and encephalopathy. 4. Mild enlargement or the dilatation of the common bile duct. DISCUSSION: The dilatation of CBD is probably a serendipitous finding that does not have any bearing on the patient's clinical presentation. The findings are more consistent with a respiratory tract infection either viral or bacterial. We will order a CT of chest and check respiratory virus PCR panel. Follow up the cultures to final results. The blistering illness could be related to the current presentation, the patient had recently one of his old psychotropic medications restarted for management of bipolar disorder and he noticed itching and has developed blisters since. Those could be consistent with bullous pemphigoid and he may need a biopsy depending on clinical progress. Job ID: [id number]
[2019-04-04] MEDS: risperiDONE 1 MG TAB PO SCH (20:45)
[2019-04-04] MEDS: Atorvastatin Calcium 10 MG TAB PO SCH (20:45)
--- NOTE | 2019-04-04 21:04 | PRG ---
DATE OF SERVICE: 04/04/2019 SUBJECTIVE: This is a 78-year-old male, hospitalized because of fever, altered mental status, and also history of coughing and expectoration. The patient also had abdominal sonogram, which showed gallstones and dilated CBD. He had no abdominal pain. No nausea or vomiting. This was felt to be initially gallstone. The patient had microcytic anemia, and a stool guaiac was ordered. The stool guaiac came back negative for occult blood. OBJECTIVE: GENERAL: He is awake, alert, and communicative, and offers no complaints. VITAL SIGNS: Afebrile. Pulse is 78, blood pressure 132/73. CARDIOVASCULAR AND LUNGS: Within normal limits. ABDOMEN: Soft. No organomegaly. No tenderness. No masses. IMPRESSION: Anemia, microcytic with negative fecal occult blood testing. I am really not sure if he had any endoscopy in the past. I will discuss with Dr. Morgan and see if there is any colonoscopy in the past. For the time being, I will defer endoscopy studies until his workup is completed. Job ID: [id number]
[2019-04-05] MEDS: Piperacillin/Tazobactam 3.375 GM in Sodium Chloride 0.9% 100 ML IVPB SCH ×2 (03:09→09:18)
[2019-04-05] MEDS: Dextrose 5 %-0.45 % NaCl 1,000 ML IV SCH ×2 (03:09→16:43)
[2019-04-05] MEDS: Levothyroxine 150 MCG TAB PO SCH (05:47)
[2019-04-05] MEDS: Polyethylene Glycol 3350 17 GM Packet PO SCH (09:13)
[2019-04-05] MEDS: Cyanocobalamin (Vitamin B-12) 1,000 MCG TAB PO SCH (09:15)
[2019-04-05] MEDS: Folic Acid 1 MG TAB PO SCH (09:15)
[2019-04-05] MEDS: Fish Oil 1,000 MG CAP PO SCH (09:15)
[2019-04-05] MEDS: Ferrous Sulfate 325 MG TAB PO SCH (09:15)
[2019-04-05] MEDS: Lisinopril 20 MG TAB PO SCH (09:16)
[2019-04-05] MEDS: hydrALAZINE 25 MG TAB PO SCH ×3 (09:16→20:47)
[2019-04-05] MEDS: Divalproex Sodium 250 MG (DR) TAB PO SCH ×2 (09:17→20:47)
[2019-04-05] MEDS: Furosemide 40 MG TAB PO SCH (09:17)
[2019-04-05] MEDS: Aspirin Chewable 81 MG TAB PO SCH (09:18)
[2019-04-05] MEDS: Ubidecarenone 50 MG CAP PO SCH (09:19)
[2019-04-05] MEDS: Insulin Regular 300 UNITS/3 ML VIAL SC PRN (16:43)
[2019-04-05] MEDS: risperiDONE 1 MG TAB PO SCH (20:46)
[2019-04-05] MEDS: Atorvastatin Calcium 10 MG TAB PO SCH (20:47)
[2019-04-06] MEDS: Levothyroxine 150 MCG TAB PO SCH (06:17)
[2019-04-06] MEDS: Fish Oil 1,000 MG CAP PO SCH (10:00)
[2019-04-06] MEDS: hydrALAZINE 25 MG TAB PO SCH (10:01)
[2019-04-06] MEDS: Ubidecarenone 50 MG CAP PO SCH (10:03)
[2019-04-06] MEDS: Ferrous Sulfate 325 MG TAB PO SCH (10:03)
[2019-04-06] MEDS: Cyanocobalamin (Vitamin B-12) 1,000 MCG TAB PO SCH (10:04)
[2019-04-06] MEDS: Furosemide 40 MG TAB PO SCH (10:04)
[2019-04-06] MEDS: Lisinopril 20 MG TAB PO SCH (10:04)
[2019-04-06] MEDS: Aspirin Chewable 81 MG TAB PO SCH (10:05)
[2019-04-06] MEDS: Folic Acid 1 MG TAB PO SCH (10:05)
[2019-04-06] MEDS: Divalproex Sodium 250 MG (DR) TAB PO SCH (10:06)
[2019-04-06] MEDS: Polyethylene Glycol 3350 17 GM Packet PO SCH (10:07)
[2019-04-06 11:47] VITALS: BP 109/69; TEMP 98
== END 2019-04-06 13:54 | disposition home or self-care (01) | DRG 444 ==
LOC: ERS 16:36 → SURG A 23:58
PROVIDERS: ADMIT Internal Medicine; ATTEND Internal Medicine
DX: K80.80 Other cholelithiasis without obstruction (principal); G93.41 Metabolic encephalopathy; F31.9 Bipolar disorder, unspecified; E03.9 Hypothyroidism, unspecified; I12.9 Hypertensive chronic kidney disease with stage 1 through stage 4 chronic kidney disease, or unspecified chronic kidney disease; N18.3 Chronic kidney disease, stage 3 (moderate); E78.5 Hyperlipidemia, unspecified; D64.9 Anemia, unspecified; K83.8 Other specified diseases of biliary tract; E11.22 Type 2 diabetes mellitus with diabetic chronic kidney disease; L98.9 Disorder of the skin and subcutaneous tissue, unspecified; Z90.89 Acquired absence of other organs; Z79.82 Long term (current) use of aspirin
CPT/HCPCS: 36415; 36416; 51701; 71045; 71250; 74176; 76705; 80048; 80053; 81003; 81015; 82274; 82570; 82728; 83540; 83550; 83605; 83880; 84156; 84439; 84443; 85025; 87040; 87086; 87149; 87633; 87804; 96365; 96367; J0696; J1815; J2543; J3490

== ENCOUNTER 2019-04-28 08:12 | Observation (INO) | payer MEDICARE, OTHER ==
--- NOTE | 2019-04-28 08:51 | RAD ---
CHEST ONE VIEW: History: Syncope. Comparison: 04-02-19 FINDINGS: Lungs are without confluent airspace consolidation, pneumothorax or effusion. Cardiac silhouette and mediastinal contours are within normal limits. Surgical clips along the left neck. IMPRESSION: No acute thoracic abnormality. POS: OFF
[2019-04-28 09:01] LABS: #Eosinphils 1.3 thou/uL (0.0-0.7); #Lymphocytes 1.3 thou/uL (1.20-3.40); #Monocytes 0.6 thou/uL (0.11-0.59); #Neutrophils 3.6 thou/uL (1.40-6.50); %Basophils 0.2 % (0.0-1.0); %Eosinophils 19.6 % (0.0-10.0); %Lymphocytes 18.4 % (21.0-51.0); %Monocytes 8.5 % (0.0-10.0); %Neutrophils 53.3 % (42.0-75.0); Hemoglobin 10.5 g/dL (14.0-18.0); Mean Corpuscular HGB CONC 32.5 g/dL (32.0-36.0); Mean Corpuscular Hemoglobin 23.9 pg (27.0-31.0); Mean Corpuscular Volume 73.5 fL (78.0-98.0); Mean Platelet Volume 10.8 fL (7.4-10.4); Platelet Count 186 thou/uL (130-400); RBC Distribution Width 13.3 % (11.5-14.5); Red Blood Cell (RBC) Count 4.39 mill/uL (4.70-6.10); White Blood Cell (WBC) Count 6.8 thou/uL (4.8-10.8)
[2019-04-28 09:33] LABS: ALT (SGPT) 7 U/L (8-55); AST (SGOT) 20 U/L (5-34); Albumin 3.7 g/dL (3.4-4.8); Alkaline Phosphatase 44 U/L (40-150); Anion Gap 13 mmol/L (10-20); BUN (Urea Nitrogen) 29 mg/dL (8.4-25.7); Bilirubin, Total 0.6 mg/dL (0.2-1.2); CK (CPK) 116 U/L (30-200); Calc. Creatinine Clearance 0 mL/min (70-130); Calcium 9.3 mg/dL (7.8-10.44); Carbon Dioxide 22 mmol/L (23-31); Chloride 106 mmol/L (98-107); Estimated GFR-MDRD 38; Globulin 3.2 g/dL (2.4-3.5); Glucose 98 mg/dL (83-110); Potassium 4.3 mmol/L (3.5-5.1); Protein, Total 6.9 g/dL (5.8-8.1); Sodium 137 mmol/L (136-145)
[2019-04-28 09:43] LABS: Microcytosis SLIGHT = 6-15 cells (100X) (0-5/hpf); Platelet Morphology Comment Appears Adequate; Polychromasia SLIGHT = 2-3 cells (100X) (0-2/hpf)
[2019-04-28] MEDS ORDERED: Ondansetron ODT 4 MG TAB SL PRN (10:00)
[2019-04-28] MEDS ORDERED: Ondansetron PF 4 MG/2 ML Vial IVP PRN (10:00)
[2019-04-28] MEDS ORDERED: Aspirin 325 MG TAB PO SCH (10:00)
[2019-04-28] MEDS ORDERED: Acetaminophen 325 MG TAB PO PRN (10:00)
[2019-04-28 10:25] LABS: Bilirubin Negative (Negative); Blood, Urine Negative (Negative); Glucose, Urine (Dipstick) Negative (Negative); Leukocyte Negative (Negative); Nitrite Negative (Negative); Protein, Urine (Dipstick) 30 mg/dL (Neg-Trace); Urobilinogen 0.2 mg/dL (Less than 2)
[2019-04-28 10:28] LABS: Clarity Clear (Clear)
[2019-04-28 10:33] LABS: Bacteria/HPF None Seen HPF (None Seen); RBC/HPF None Seen HPF (0-3); Squamous Epithelial None Seen HPF (0-3); WBC/HPF None Seen HPF (0-3)
[2019-04-28 12:31] LABS: Troponin I Less than 0.010 ng/mL (< 0.028)
[2019-04-28 15:36] VITALS: BMI 25.2
[2019-04-28] MEDS ORDERED: Hydrocortisone 1% Cream 30 GM TUBE TOP PRN (15:51)
[2019-04-28 15:54] LABS: Troponin I Less than 0.010 ng/mL (< 0.028)
[2019-04-28] MEDS: Sodium Chloride 0.9% 1,000 ML IV SCH ×2 (17:12→17:14)
--- NOTE | 2019-04-28 17:12 | ULT ---
CAROTID ULTRASOUND: 04/28/19 HISTORY: Near syncope. COMPARISON: None. TECHNIQUE: Grimes scale, color flow, Doppler imaging with spectral waveform analysis performed of the carotid and vertebral arteries. FINDINGS: RIGHT CAROTID: Minimal calcified plaque in the distal and mid common carotid artery. Peak systolic velocity of the c ommon carotid artery is 99.4 cm/s. Peak systolic velocity internal carotid artery is 98.7 cm/s. Systo lic ICA/CCA ratio is 1.0. LEFT CAROTID: No significant atherosclerotic disease. Peak systolic velocity of the common carotid artery is 115.4 cm/s. Peak systolic velocity internal carotid artery is 121.8 cm/s. Systolic ICA/CCA ratio is 1.1. Antegrade flow in both vertebral arteries. Note, the left vertebral artery velocity is greater than t he contralateral side. Significance is uncertain. IMPRESSION: No sonographic evidence of hemodynamically significant stenosis. POS: OFF
--- NOTE | 2019-04-28 18:54 | CON ---
DATE OF CONSULTATION: 04/28/2019 REASON FOR CONSULTATION: Presyncope. HISTORY OF PRESENT ILLNESS: Mr. Brian is a 78-year-old gentleman with past history of hyperlipidemia and hypertension, who states he was taking the trash out when he developed a presyncope. No true syncope noted. No chest pain, pressure, or other associated symptoms. He called his and his son. He then proceeded to the emergency room. EKG did suggest left anterior fascicular block and bradycardia. PAST MEDICAL HISTORY: As above. SOCIAL HISTORY: He is currently . No current tobacco or alcohol use. HOME MEDICATIONS: Include: 1. Synthroid. 2. Toprol. 3. Lisinopril. 4. Iron sulfate. 5. Hydralazine. 6. Zocor. 7. Depakote. 8. Lasix. REVIEW OF SYSTEMS: A 10-point review of systems is reviewed as above, otherwise negative. PHYSICAL EXAMINATION: GENERAL: Patient is a pleasant male who is in no acute distress. The patient appears their stated age. VITAL SIGNS: Blood pressure 188/97, pulse 67, and temperature 98.1. NEUROLOGIC: The patient is alert and oriented x3 with no focal neurologic deficits. HEENT: Sclerae without icterus. Mouth has moist mucous membranes with normal pallor. NECK: No JVD. Carotid upstroke brisk. No bruits bilaterally. LUNGS: Clear to auscultation with unlabored respirations. BACK: No scoliosis or kyphosis. CARDIAC: Regular rate and rhythm with normal S1 and S2. No S3 or S4 noted. No significant rubs, murmurs, thrills, or gallops noted throughout the precordium. PMI is not displaced. There is no parasternal heave. ABDOMEN: Soft, nontender, nondistended. No peritoneal signs present. No hepatosplenomegaly. No abnormal striae. EXTREMITIES: 2+ femoral and 2+ dorsalis pedis pulses. No cyanosis, clubbing, or edema. SKIN: No gross abnormalities. PERTINENT LABORATORY DATA: Hemoglobin 10.0, platelet count 186. Creatinine 2.08, GFR 38, and sodium 137. Troponin negative. BNP of 227. IMPRESSION: Presyncope. RECOMMENDATIONS: From a CV standpoint, the most likely etiology is a sick sinus syndrome. His heart rate appears stable currently. We would recommend echo with Doppler, although his BNP is low. If his echo appears normal, we would recommend a 3-week event recorder to assess for any significant dysrhythmia as an outpatient. Otherwise, I have no further recommendations. Plan is to follow up as an outpatient with 3-week event recorder. Please re-consult if other questions arise. Job ID: [id number]
[2019-04-28] MEDS: Cyproheptadine 4 MG TAB PO SCH (21:22)
[2019-04-28] MEDS: risperiDONE 1 MG TAB PO SCH (21:23)
[2019-04-28] MEDS: Divalproex Sodium 250 MG (DR) TAB PO SCH (21:23)
[2019-04-28] MEDS: hydrALAZINE 25 MG TAB PO SCH (21:23)
[2019-04-28] MEDS: Simvastatin 20 MG TAB PO SCH (21:24)
[2019-04-29] MEDS: Levothyroxine Sodium 125 MCG TAB PO SCH (06:47)
--- NOTE | 2019-04-29 08:10 | HP ---
CHIEF COMPLAINT: Possible syncope. HISTORY OF PRESENT ILLNESS: Mr. Brian is a 78-year-old male with past medical history of hypertension, hypothyroidism, bipolar disorder, was found to have dizziness in the home. He felt dizzy and about to fall and his able to hold him and made him to sit down. After some time, he felt better but initially he did not know what was happening. He did not have any chest pain, nausea, or vomiting. No headache. No fever. The patient did not fall and did not lose consciousness. The patient was recently in the hospital for viral fever. The patient was brought to the emergency room, where he was evaluated and found to have normal EKG and cardiac enzymes, being admitted for further management. PAST MEDICAL HISTORY: 1. Hypertension. 2. Hypothyroidism. 3. Bipolar disorder. 4. Chronic kidney disease, stage 3. 5. Diabetes mellitus by history. 6. Colon diverticulosis. 7. History of atrial flutter. PAST SURGICAL HISTORY: Status post partial thyroidectomy, status post ablation of atrial flutter. CURRENT MEDICATIONS: The patient is on: 1. Lisinopril 40 mg daily. 2. Metoprolol 25 mg a day. 3. Risperdal 2 mg at bedtime. 4. Simvastatin 20 mg daily. 5. asa daily. 6. Vitamin D 5000 units daily. 7. Vitamin B12 daily, 1000 mcg. 8. tyelenol prn 9. Depakote 250 b.i.d. 10. Folic acid 1 mg daily. 11. Furosemide 40 mg daily. 12. Hydralazine 50 mg t.i.d. 13. Levothyroxine 125 mcg daily. ALLERGIES: NKDA. FAMILY HISTORY: Nothing contributory. SOCIAL HISTORY: The patient lives with family. No history of smoking. No history of alcohol. REVIEW OF SYSTEMS: CARDIOVASCULAR: No chest pain. Has some shortness of breath. RESPIRATORY: No fever or cough. GASTROINTESTINAL: No nausea or vomiting. No abdominal pain. CENTRAL NERVOUS SYSTEM: No headache, no dizziness. PHYSICAL EXAMINATION: GENERAL: The patient is alert, awake, oriented x3. VITAL SIGNS: Temperature 98, pulse 77, respiratory rate 20, blood pressure 188 /90. HEENT: Head is normocephalic and atraumatic. Pupils are equal and reactive. Nasopharynx is pale and dry. Hard and soft palate, no lesions. SKIN: Turgor is decreased. NECK: Supple. No JVD. LUNGS: Bilateral air entry present. No rales or rhonchi. HEART: S1 and S2, regular. ABDOMEN: Soft. No distention. No tenderness. Normal bowel sounds present. RECTAL: Deferred. CENTRAL NERVOUS SYSTEM: No focal deficits. SKIN: There is an eczematous rash present on extremities. LABORATORY DATA: CBC shows WBC 6.8, hemoglobin 10, hematocrit 32, platelets 186. Metabolic panel; sodium 137, potassium 4.3, chloride 106, CO2 of 20, BUN 29, creatinine 2, glucose 98. Troponin I less than 0.010. BNP 227. Urinalysis negative. EKG shows normal sinus rhythm, right bundle branch block, bifascicular block. Chest x-ray negative. ASSESSMENT: 1. Presyncope, rule out myocardial infarction. Rule out cardiac arrhythmia. Rule out sick sinus syndrome. 2. Hypertension. 3. Hyperlipidemia. 4. Hypothyroidism. 5. Bipolar disorder. 6. Chronic anemia. 7. Chronic kidney disease, stage 3. 8. History of diabetes mellitus. PLAN: 1. Vital signs q.4 hours. 2. Activity, as tolerated. 3. Allergies, NKDA. 4. Hep-Lock. 5. Diet, cardiac. 6. Continue his home medications. 7. Troponin I q.6 hours x2. 8. Cardiology consult. 9. Carotid Doppler study in the clinic. 10. Echocardiogram. Job ID: [id number] MTDD
[2019-04-29 08:34] LABS: Cardiac Risk 2.9 (Less than 4.5)
[2019-04-29] MEDS ORDERED: CRANBERRY FRUIT EXTRACT 300 MG PO SCH (09:00)
[2019-04-29] MEDS: Cyanocobalamin (Vitamin B-12) 1,000 MCG TAB PO SCH (10:00)
[2019-04-29] MEDS: Fish Oil 1,000 MG CAP PO SCH (10:01)
[2019-04-29] MEDS: Ferrous Sulfate 325 MG TAB PO SCH (10:01)
[2019-04-29] MEDS: hydrALAZINE 25 MG TAB PO SCH ×3 (10:01→20:12)
[2019-04-29] MEDS: Lisinopril 20 MG TAB PO SCH (10:01)
[2019-04-29] MEDS: Ubidecarenone 50 MG CAP PO SCH (10:01)
[2019-04-29] MEDS: Furosemide 40 MG TAB PO SCH (10:02)
[2019-04-29] MEDS: Folic Acid 1 MG TAB PO SCH (10:02)
[2019-04-29] MEDS: Divalproex Sodium 250 MG (DR) TAB PO SCH ×2 (10:02→20:13)
[2019-04-29] MEDS: risperiDONE 1 MG TAB PO SCH (20:12)
[2019-04-29] MEDS: Simvastatin 20 MG TAB PO SCH (20:13)
[2019-04-29] MEDS: Cyproheptadine 4 MG TAB PO SCH (20:13)
[2019-04-30] MEDS: Levothyroxine Sodium 125 MCG TAB PO SCH (05:26)
[2019-04-30 06:30] LABS: Anion Gap 8 mmol/L (10-20); BUN (Urea Nitrogen) 26 mg/dL (8.4-25.7); Calc. Creatinine Clearance 46 mL/min (70-130); Calcium 8.7 mg/dL (7.8-10.44); Carbon Dioxide 27 mmol/L (23-31); Chloride 107 mmol/L (98-107); Estimated GFR-MDRD 49; Glucose 77 mg/dL (83-110); Sodium 138 mmol/L (136-145)
[2019-04-30] MEDS: Fish Oil 1,000 MG CAP PO SCH (09:21)
[2019-04-30] MEDS: Folic Acid 1 MG TAB PO SCH (09:21)
[2019-04-30] MEDS: Ferrous Sulfate 325 MG TAB PO SCH (09:22)
[2019-04-30] MEDS: hydrALAZINE 25 MG TAB PO SCH ×2 (09:22→15:35)
[2019-04-30] MEDS: Lisinopril 20 MG TAB PO SCH (09:22)
[2019-04-30] MEDS: Furosemide 40 MG TAB PO SCH (09:22)
[2019-04-30] MEDS: Cyanocobalamin (Vitamin B-12) 1,000 MCG TAB PO SCH (09:23)
[2019-04-30] MEDS: Ubidecarenone 50 MG CAP PO SCH (09:23)
[2019-04-30] MEDS: Divalproex Sodium 250 MG (DR) TAB PO SCH (09:23)
[2019-04-30 15:35] VITALS: BP 122/77; TEMP 98.4
--- NOTE | 2019-05-02 13:03 | DIS ---
DATE OF ADMISSION: 04/28/2019 DATE OF DISCHARGE: 04/30/2019 ADMITTING DIAGNOSES: 1. Presyncope, rule out TN, rule out cardiac arrhythmia, rule out sick sinus syndrome. 2. Hypertension. 3. Hyperlipidemia. 4. Hypothyroidism. 5. Bipolar disorder. 6. Chronic anemia. 7. Chronic kidney disease stage 3. 8. Diabetes mellitus. FINAL DIAGNOSES: 1. Near syncope. No evidence of TN. 2. Possible sick sinus syndrome. 3. Hypertension. 4. Hyperlipidemia. 5. Hypothyroidism. 6. Bipolar disorder. 7. Chronic kidney disease, stage 3. 8. Chronic anemia. BRIEF SUMMARY AND HOSPITAL COURSE: Mr. Brian is a 78-year-old male, admitted with near syncopal episode. The patient felt dizzy, almost fell , but was helped by his before falling. He did not lose consciousness. He did not have any chest pain or shortness of breath. In view of this, the patient brought to the hospital and the patient admitted to rule out any arrhythmia or acute TN. He had normal cardiac enzymes . Cardiac consult was done with Dr. Collado and he suggested to monitor to see if any arrhythmia, otherwise he might need an event monitor to go home. The patient had carotid Dopplers today had no evidence of significant stenosis. An echocardiogram was done which showed normal LV function with Ef of 55%. The patient did not have any dizziness, was started on walking program. He was able to ambulate without dizziness, without fall or syncopal episode. In view of that, the patient was discharged. At time of discharge, lungs clear, vital signs stable, heart sounds regular, abdomen soft, and bowel sounds present. DISCHARGE MEDICATIONS: Ferrous sulfate 325 mg, vitamin B12 1000 mcg daily, fish oil one daily, vitamin D3 5000 units daily, CoQ-10 50 mg daily, folic acid 1 mg daily, cranberry extract daily, lisinopril 40 mg daily, simvastatin 20 mg at bedtime, metoprolol 25 mg daily, levothyroxine 125 mcg daily, hydralazine 50 t.i.d., Depakote 250 b.i.d., Lasix 40 mg daily, Risperdal 2 mg at bedtime, Cyproheptadine 2 mg at bedtime. The patient to have the event monitor. Also, he will follow with corporate director office in 2 days to set up this monitor. Job ID: [id number] [facility]
--- NOTE | 2019-05-05 15:23 | EKG ---
Test Reason : SYNCOPE Blood Pressure : / mmHG Vent. Rate : 060 BPM Atrial Rate : 060 BPM P-R Int : 242 ms QRS Dur : 122 ms QT Int : 448 ms P-R-T Axes : 000 -47 -05 degrees QTc Int : 448 ms Sinus rhythm with 1st degree A-V block Right bundle branch block Left anterior fascicular block Bifascicular block Abnormal ECG Confirmed by JUAN ANTONIO WADE, EDWINA ([id number]), advertising editor SANDIE GONZALES ([id number]) on 05/05/2019 3:23:37 PM Referred By: Confirmed By:EDWINA ROMANO MD
== END 2019-04-30 18:57 | disposition home or self-care (01) ==
LOC: ERS 08:12 → ERHOLD 10:34 → 2SW 15:04
PROVIDERS: ADMIT Internal Medicine; ATTEND Internal Medicine
DX: R55 Syncope and collapse (principal); R42 Dizziness and giddiness; I12.9 Hypertensive chronic kidney disease with stage 1 through stage 4 chronic kidney disease, or unspecified chronic kidney disease; E11.22 Type 2 diabetes mellitus with diabetic chronic kidney disease; N18.3 Chronic kidney disease, stage 3 (moderate); E89.0 Postprocedural hypothyroidism; F31.9 Bipolar disorder, unspecified; D64.9 Anemia, unspecified; Z79.899 Other long term (current) drug therapy
CPT/HCPCS: 71045; 80048; 80053; 80061; 82550; 83605; 83880; 84484 ×2; 85025; 87040; 87086; 87149 ×2; 93005; 93306; 93880; 94760; 96360; 97139 ×2; 99285; G0378 ×4; 36415; 81003; 81015

== ENCOUNTER 2019-07-24 23:44 | Observation (INO) | payer MEDICARE, OTHER ==
[2019-07-25 00:40] LABS: Hemoglobin 11.6 g/dL (14.0-18.0); Mean Corpuscular HGB CONC 31.1 g/dL (32.0-36.0); Mean Corpuscular Hemoglobin 24.1 pg (27.0-31.0); Mean Corpuscular Volume 77.5 fL (78.0-98.0); Mean Platelet Volume 11.8 fL (7.4-10.4); Platelet Count 146 thou/uL (130-400); RBC Distribution Width 13.7 % (11.5-14.5); White Blood Cell (WBC) Count 8.1 thou/uL (4.8-10.8)
[2019-07-25 00:50] LABS: Bacteria/HPF None Seen HPF (None Seen); Bilirubin Negative (Negative); Blood, Urine Negative (Negative); Clarity Clear (Clear); Glucose, Urine (Dipstick) Normal (Negative); Leukocyte Negative Leu/uL (Negative); Mucous/LPF Rare LPF (<2+); Nitrite Negative (Negative); Protein, Urine (Dipstick) 70 mg/dL (Neg-Trace); RBC/HPF 0-3 HPF (0-3); Squamous Epithelial 0-3 HPF (0-3); WBC/HPF 0-3 HPF (0-3)
[2019-07-25 01:00] LABS: #Eosinphils 0.1 thou/uL (0.0-0.7); #Lymphocytes 1.7 thou/uL (1.20-3.40); #Monocytes 0.7 thou/uL (0.11-0.59); #Neutrophils 5.6 thou/uL (1.40-6.50); %Eosinophils 1.4 % (0.0-10.0); %Lymphocytes 20.6 % (21.0-51.0); %Monocytes 8.9 % (0.0-10.0); %Neutrophils 69.1 % (42.0-75.0); MDiff Complete? YES; Platelet Morphology Comment Appears Adequate; Schistocytes SLIGHT = 2-5 cells (100X) (0-1/hpf)
[2019-07-25 01:15] LABS: CKMB 3.8 ng/mL (0-6.6)
[2019-07-25 01:36] LABS: ALT (SGPT) 9 U/L (8-55); AST (SGOT) 12 U/L (5-34); Albumin 3.4 g/dL (3.4-4.8); Alkaline Phosphatase 61 U/L (40-110); Anion Gap 11 mmol/L (10-20); BUN (Urea Nitrogen) 27 mg/dL (8.4-25.7); Bilirubin, Total 0.4 mg/dL (0.2-1.2); Calc. Creatinine Clearance 0 mL/min (70-130); Calcium 9.2 mg/dL (7.8-10.44); Carbon Dioxide 29 mmol/L (23-31); Chloride 103 mmol/L (98-107); Estimated GFR-MDRD 37; Globulin 2.6 g/dL (2.4-3.5); Glucose 127 mg/dL (83-110); Magnesium 1.9 mg/dL (1.6-2.6); Potassium 4.1 mmol/L (3.5-5.1); Sodium 139 mmol/L (136-145)
[2019-07-25] MEDS ORDERED: Aspirin Chewable 81 MG TAB ONE (01:39)
[2019-07-25 04:11] LABS: Troponin I 0.093 ng/mL (< 0.028)
[2019-07-25] MEDS ORDERED: Ondansetron ODT 4 MG TAB PO PRN (06:16)
[2019-07-25] MEDS ORDERED: Acetaminophen 325 MG TAB PO PRN (06:16)
[2019-07-25 06:30] VITALS: BMI 22.6
--- NOTE | 2019-07-25 07:40 | RAD ---
XR Chest 1 View Portable History: Weakness Comparison: Radiograph April 28, 2019 Findings: Lungs are clear. No pneumothorax or effusion. Surgical clips along the left neck. No acute osseous abnormality. Impression: No acute intrathoracic abnormality.
--- NOTE | 2019-07-25 07:42 | CT ---
PRELIMINARY REPORT/[facility]/EMERGENCY AFTER HOURS PROCEDURE PROCEDURE INFORMATION: Exam: CT Head Without Contrast Exam date and time: 07/25/2019 1:13 AM Clinical history: 79 years old, male; Altered mental status/memory loss; Confusion or disorientation; Headache not specified; Patient HX: Faraz presents to ED for altered mental status. Family reports recent changes in mental status that they believe are getting progressively worse. Report that PT was hospitalized in April for low blood pressure, put on medication by Dr. Dos Santos and has had changes/episodes since then. Report episodes that include eyes rolling back in head and PT grabbing at head in pain with associated disorientation. Report multiple daily episodes that are becoming more frequent. TECHNIQUE: Imaging protocol: Computed tomography of the head without contrast. COMPARISON: No relevant prior studies available. FINDINGS: Brain: There is age-related diffuse cerebral and cerebellar volume loss and chronic microvascular ischemic disease. Ventricles: Normal. No ventriculomegaly. Bones/joints: Unremarkable. No acute fracture. Sinuses: Visualized sinuses are unremarkable. No fluid levels. Mastoid air cells: Visualized mastoid air cells are well aerated. Soft tissues: Unremarkable. IMPRESSION: 1. There is age-related diffuse cerebral and cerebellar volume loss and chronic microvascular ischemic disease. 2. No acute intracranial pathology. Thank you for allowing us to participate in the care of your patient. Dictated and Authenticated by: Dexter Goodman MD 07/25/2019 1:19 AM Central Time ([place] & [place]) FINAL REPORT HEAD CT WITHOUT CONTRAST: DATE: 07/25/2019 COMPARISON: 01/02/2018 HISTORY: Altered mental status. FINDINGS: I agree with the preliminary report. The visualized paranasal sinuses and mastoid air cells are well-aerated. No displaced calvarial fracture. Mild cerebral volume loss. No intracranial hemorrhage, midline shift, or mass effect. IMPRESSION: No acute findings. Code QA Transcribed Date/Time: 07/25/2019 8:28 AM
[2019-07-25 07:53] LABS: Troponin I 0.104 ng/mL (< 0.028)
--- NOTE | 2019-07-25 08:43 | HP ---
PRIMARY CARE PHYSICIAN: Antonio Morgan MD, from the previous records. CHIEF COMPLAINT: Abnormal eye movements and tremor. HISTORY OF PRESENT ILLNESS: The history of present illness is taken from review of the medical records as the patient is a very poor historian and is actually not sure why he was brought to the hospital. But in discussion with the emergency room physician as well as review of the records, it appears as if his family was concerned that he was having abnormal eye movements as well as a tremor. They noticed that he would continually roll his eyes back in a rhythmic form or in a rhythmic nature continuously off and on as well as noting a tremor. The patient himself denies any headache. No dizziness. No fevers, no chills. No nausea or vomiting. No weakness in either of his upper or lower extremities. When I did see the patient, he is exhibiting these movements of his eyes as well as a fine tremor in the right upper extremity. REVIEW OF SYSTEMS: All systems were reviewed and are negative except that mentioned in the history of present illness. PAST MEDICAL HISTORY: Significant for hypertension; hypothyroidism; bipolar disorder; chronic kidney disease, stage 3; diabetes mellitus; colon diverticulosis; and atrial flutter. PAST SURGICAL HISTORY: He has had a partial thyroidectomy, status post ablation for atrial flutter. ALLERGIES: NO KNOWN DRUG ALLERGIES. FAMILY HISTORY: No known history of any heritable diseases. SOCIAL HISTORY: He lives with family. He is a nonsmoker, nondrinker. CURRENT MEDICATIONS: Include; 1. Synthroid 125 mcg p.o. daily. 2. Ferrous sulfate 325 mg daily. 3. Simvastatin 60 mg at bedtime. 4. Depakote 250 mg 2 tablets daily. PHYSICAL EXAMINATION: GENERAL: The patient is awake and alert. He is oriented to person and place. VITAL SIGNS: Blood pressure was 170/90, heart rate 82, respiratory rate of 18, and temperature is 98.2. HEENT: Pupils are equal, round, and reactive to light. Extraocular muscles are intact. His sclerae are anicteric. Throat; no erythema, no exudates. He has poor dentition. NECK: No adenopathy. No bruits. LUNGS: Clear to auscultation. There are no wheezing, no rales, no rhonchi. CARDIOVASCULAR: He has a normal S1 and S2. I did not appreciate an S3 or S4. No murmurs, clicks, or rubs. ABDOMEN: Soft, nontender, and nondistended. Positive for bowel sounds. No rebound. No guarding. EXTREMITIES: He has multiple round lesions in various stages, some are open areas. It appears as if the entire dermis has been punched out. Others are scarred over and hypopigmented and others have dark eschar over them. These are primarily on his lower extremities and there are some on the upper extremities as well. He does have area of hyperpigmentation in both lower extremities and leathery scaly scan. He has mycotic nails. He does have palpable dorsalis pedis pulses bilaterally. NEUROLOGICAL: The patient appears to have rhythmic movement of his eyes in an upward and posterior gaze and also has an intention tremor primarily in the right upper extremity, which seems to get better with rest. LABORATORY RESULTS: His white blood cell count is 8.1, hemoglobin 11.6, hematocrit is 37.1, and platelet count is 146. Chemistry; sodium 139, potassium 4.1, chloride is 103, CO2 is 19, BUN of 27, creatinine 2.1, and glucose is 127. Urinalysis was negative. Troponin 0.039. He had a CT scan of the brain, which by my reading shows no evidence of an infarct or bleed. EKG shows a bifascicular block. ASSESSMENT AND PLAN: 1. This is a pleasant 79-year-old, who presents with an unusual eye movements and tremor. This could represent a partial seizure. It also could be some type of side effects to medications. He has been placed in observation and we will get a Neurology consult. 2. Elevated troponin. This is of unknown significance. He has absolutely no symptoms attributable to angina. It is noted that his troponins have been in the same range a few years back. We will continue to trend and should he have any symptoms suspicious for coronary artery disease, then consider a stress test. It is noted that he was recently seen in the hospital by Dr. Pena for near syncopal episode, where he was taken off beta-tamar. 3. Chronic kidney disease. His renal disease appears to be clinically stable. 4. Chronic anemia. Again, this also appears to be clinically stable. At this point, we will go ahead and restart his home medications and allow him to eat and await further evaluation from Neurology. Job ID: [id number]
[2019-07-25] MEDS: Famotidine 20 MG TAB PO SCH ×2 (09:23→22:14)
[2019-07-25] MEDS: Heparin 5,000 UNITS/ML VIAL SC SCH ×3 (09:24→22:14)
--- NOTE | 2019-07-25 11:18 | MRI ---
Brain MRI without contrast: 07/25/2019 COMPARISON: 12/12/2017 HISTORY: Altered mental status, oculogyric crisis Technique: Multiplanar multisequence MR imaging of the brain obtained without contrast FINDINGS: The diffusion weighted imaging demonstrates no evidence for acute infarction. Axial gradient echo imaging demonstrates 2 areas of linear blooming artifact associated with the post erior left frontoparietal region near the vertex and the left frontal region, suggesting areas of prior hemorrhage. There is moderate diffuse cerebral volume loss with associated prominence of the CS F containing spaces. Mild periventricular T2 and FLAIR hyperintensity suggests small vessel disease. Arterial flow voids at the axial level of the skull base appear grossly unremarkable on the T2-weight ed imaging. Imaged paranasal sinuses and mastoid air cells are grossly unremarkable. IMPRESSION: Chronic findings as detailed above. No MR evidence for acute infarction or acute hemorrha ge.
--- NOTE | 2019-07-25 18:38 | CON ---
DATE OF TELEMEDICINE CONSULTATION: 07/25/2019 CHIEF COMPLAINT: Involuntary eye movements. HISTORY OF PRESENT ILLNESS: The patient reports he does notice his eye movements have been present for a while, and he has double vision. No history of tremor. No headache. No other neurological issues. He does not have any difficulty focusing with his eyes, and the patient seems to be acclimatized to the eye movement based on the evaluation as well. Per ER visit note, the patient had recent episodes of eye rolling back and the patient denies any disorientation. The patient was also noted to have tremor. PREVIOUS MEDICAL HISTORY: Positive for hypertension, hyperthyroidism, and hyperlipidemia. PREVIOUS SURGICAL HISTORY: Mass removal from kidney and thyroidectomy. PSYCHIATRIC HISTORY: Positive for bipolar disorder. SOCIAL HISTORY: He lives with family. No alcohol. Nonsmoker. ALLERGIES: NO KNOWN DRUG ALLERGIES. FAMILY HISTORY: Negative for any similar event or seizures or stroke, but positive for family history of hypertension. REVIEW OF SYSTEMS: PULMONARY: Negative for shortness of breath or cough. GI: Negative for nausea, vomiting, or diarrhea. OPHTHALMOLOGIC: Positive for eye movement abnormalities. NEUROLOGIC: Positive for tremor and eye movement abnormalities. DERMATOLOGIC: Negative for any skin lesion. PSYCHIATRIC: Positive for bipolar disorder. LABORATORY DATA: Lab workup; his white count 8.1, hemoglobin 11.6, hematocrit 37.1, platelets 146. Sodium 139, potassium 4.1, chloride 103, bicarb 29, BUN 27, creatinine 2.1, glucose 127. Liver function tests are within normal limits. Valproic acid 13.1. His MRI has been completed at the time of this dictation, and I am unable to open his file. PHYSICAL EXAMINATION: VITAL SIGNS: The patient's blood pressure 160/76, temperature 99.1, pulse 68, respiratory rate 16. GENERAL APPEARANCE: Thin built, well-nourished man with intermittent eye movements. CHEST: Clear vesicular breathing. CARDIOVASCULAR: S1 and S2 heard. No murmurs. ABDOMEN: Soft. NEUROLOGIC: Normal extraocular movements. Normal sensation of face bilaterally and no facial asymmetry noted. Hearing normal. Tongue midline. No atrophy noted. Normal elevation of palate. Motor; bulk normal, tone normal. Strength 5/5 throughout in iliopsoas, hamstrings, quadriceps, ankle dorsiflexion, plantar flexion, deltoid, biceps, triceps, wrist extension and flexion, finger extension and flexion bilaterally. Deep tendon reflexes are 2+ throughout. Sensory, normal to touch bilaterally. Cerebellar, normal [id number] and oaiv-[id number]. Involuntary movements, none. Gait: Not tested. IMPRESSION AND PLAN: The patient is a 79-year-old man with intermittent eye movements, which are present throughout the visit. These eye movements are similar to what we see in oculogyric crisis, but they are not sustained, which is atypical in his case. Whether he has UTILIZATION ENGINEER lesion is unclear. We will wait for MRI of the brain results. I suspect he may have had neuroleptic exposure given his history of psychiatric illness. I will follow up again tomorrow with you. Job ID: [id number] MTDD
[2019-07-26] MEDS: hydrALAZINE 20 MG/ML VIAL SLOW IVP PRN ×2 (02:16→17:19)
[2019-07-26] MEDS: Heparin 5,000 UNITS/ML VIAL SC SCH ×3 (09:38→20:09)
[2019-07-26] MEDS: risperiDONE 1 MG TAB PO SCH (20:09)
[2019-07-26] MEDS: Divalproex Sodium 250 MG (DR) TAB PO SCH (20:09)
[2019-07-26] MEDS: hydrALAZINE 25 MG TAB PO SCH (20:09)
[2019-07-26] MEDS: Atorvastatin Calcium 10 MG TAB PO SCH (20:09)
[2019-07-26] MEDS: Famotidine 20 MG TAB PO SCH (20:09)
[2019-07-27] MEDS: hydrALAZINE 20 MG/ML VIAL SLOW IVP PRN (01:10)
[2019-07-27] MEDS: Levothyroxine Sodium 125 MCG TAB PO SCH (05:47)
[2019-07-27] MEDS ORDERED: Fludrocortisone Acetate 0.1 MG TAB PO SCH (09:00)
[2019-07-27] MEDS: Heparin 5,000 UNITS/ML VIAL SC SCH ×2 (09:45→17:02)
[2019-07-27] MEDS: hydrALAZINE 25 MG TAB PO SCH ×2 (09:45→20:57)
[2019-07-27] MEDS: Ferrous Sulfate 325 MG TAB PO SCH (09:45)
[2019-07-27 11:31] LABS: Anion Gap 14 mmol/L (10-20); BUN (Urea Nitrogen) 21 mg/dL (8.4-25.7); Calc. Creatinine Clearance 41 mL/min (70-130); Calcium 8.9 mg/dL (7.8-10.44); Carbon Dioxide 23 mmol/L (23-31); Chloride 104 mmol/L (98-107); Estimated GFR-MDRD 49; Glucose 124 mg/dL (83-110); Potassium 4.4 mmol/L (3.5-5.1); Sodium 137 mmol/L (136-145)
[2019-07-27 13:02] LABS: Band 3 % (5-11); Eosinophils 1 % (0-10); Hemoglobin 12.2 g/dL (14.0-18.0); Lymphocytes 19 % (21-51); MDiff Complete? YES; Mean Corpuscular HGB CONC 32.2 g/dL (32.0-36.0); Mean Corpuscular Hemoglobin 23.9 pg (27.0-31.0); Mean Corpuscular Volume 74.3 fL (78.0-98.0); Mean Platelet Volume 8.4 fL (7.4-10.4); Metamyelocyte 2 % (0-0); Microcytosis SLIGHT = 6-15 cells (100X) (0-5/hpf); Monocytes 4 % (0-10); Neutrophil 69 % (42-75); Ovalocytes SLIGHT = 2-5 cells (100X) (0-1/hpf); Platelet Count 111 thou/uL (130-400); Platelet Morphology Comment Appears Decreased; Polychromasia SLIGHT = 2-3 cells (100X) (0-2/hpf); RBC Distribution Width 13.5 % (11.5-14.5); Reactive Lymphocytes 2 % (0-10); Red Blood Cell (RBC) Count 5.08 mill/uL (4.70-6.10); Target Cells SLIGHT = 2-5 cells (100X) (0-1/hpf); White Blood Cell (WBC) Count 7.1 thou/uL (4.8-10.8)
[2019-07-27] MEDS: Famotidine 20 MG TAB PO SCH (20:57)
[2019-07-27] MEDS: risperiDONE 1 MG TAB PO SCH (20:57)
[2019-07-27] MEDS: Divalproex Sodium 250 MG (DR) TAB PO SCH (20:57)
[2019-07-27] MEDS: Atorvastatin Calcium 10 MG TAB PO SCH (20:57)
[2019-07-28] MEDS: Levothyroxine Sodium 125 MCG TAB PO SCH (05:46)
[2019-07-28 08:35] VITALS: BP 159/80; TEMP 98.1
[2019-07-28] MEDS: hydrALAZINE 25 MG TAB PO SCH (09:40)
[2019-07-28] MEDS: Ferrous Sulfate 325 MG TAB PO SCH (09:40)
--- NOTE | 2019-08-01 09:59 | DIS ---
DATE OF ADMISSION: 07/25/2019 DATE OF DISCHARGE: 07/28/2019 ADMITTING DIAGNOSES: 1. Unusual eye movements and tremors, etiology not clear. 2. Elevated troponin, rule out myocardial infarction. 3. Chronic kidney disease, stable. 4. Chronic anemia. FINAL DIAGNOSES: 1. Hypertension, uncontrolled, improved. 2. 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 The patient is on Risperdal. 3. Hypothyroidism. 4. Bipolar disorder. 5. Unstable gait, improved. 6. Coronary artery disease, stable. 7. Chronic kidney disease, stable. BRIEF SUMMARY OF HOSPITAL COURSE: Roc is a 79-year-old male admitted because of abnormal eye movements and tremors. The patient did not have any syncopal episode or chest pain or shortness of breath. The patient admitted to the hospital for evaluation of patient's neurologic problem. Neurology consult done, by Dr. Thao who suggested MRI of the brain for further evaluation. MRI of the brain was unremarkable. They felt the patient possibly has side effects from neuroleptic drugs. The patient is on Risperdal, but his abnormal eye movements and tremors were improved now. His blood pressure was elevated and he was restarted on his hydralazine. He was not taking the medicine because the blood pressure was low. Initially, hydralazine started at 25 b.i.d. then increased to 50 b.i.d., after which blood pressure was better controlled. The patient was started on physical therapy and was able to ambulate with a walker . DISCHARGE MEDICATIONS: 1. Ferrous sulfate 325 mg daily. 2. Depakote 250 mg at bedtime. 3. Simvastatin 20 mg at bedtime. 4. Levothyroxine 125 mcg daily. 5. Risperdal 1 mg at bedtime. 6. Florinef was stopped. 7. Tylenol p.r.n. 8. Hydralazine 50 b.i.d. FOLLOWUP: The patient will come for followup in 2 weeks. Job ID: [id number] [facility]
== END 2019-07-28 12:12 | disposition home or self-care (01) ==
LOC: ERS 23:44 → 2SE 07-25 04:10 → INTOOBSV 07-25 04:10
PROVIDERS: ADMIT Internal Medicine; ATTEND Internal Medicine
DX: H55.89 Other irregular eye movements (principal); R25.1 Tremor, unspecified; R79.89 Other specified abnormal findings of blood chemistry; I12.9 Hypertensive chronic kidney disease with stage 1 through stage 4 chronic kidney disease, or unspecified chronic kidney disease; E11.22 Type 2 diabetes mellitus with diabetic chronic kidney disease; N18.3 Chronic kidney disease, stage 3 (moderate); D63.1 Anemia in chronic kidney disease; F31.9 Bipolar disorder, unspecified; E89.0 Postprocedural hypothyroidism; I25.10 Atherosclerotic heart disease of native coronary artery without angina pectoris; R26.9 Unspecified abnormalities of gait and mobility; Z79.899 Other long term (current) drug therapy
CPT/HCPCS: 70450; 70551; 71045; 80048; 80164; 82140; 82553; 83735; 84484 ×2; 85025; 93005; 96361; 96372 ×3; 96374; 97139 ×4; 99285; G0378 ×4; 36415; 80053; 81003; 81015; 84443; 96360; J0360; J1644

== ENCOUNTER 2021-08-14 08:42 | Outpatient (CLI) | payer MEDICARE, OTHER | END 2021-08-14 08:43 | disposition home or self-care (01) | LOC: BICULT 08:42 | PROVIDERS: ATTEND Internal Medicine Nephrology | DX: I12.9 Hypertensive chronic kidney disease with stage 1 through stage 4 chronic kidney disease, or unspecified chronic kidney disease (principal); N18.30 Chronic kidney disease, stage 3 unspecified; N28.89 Other specified disorders of kidney and ureter; N40.0 Benign prostatic hyperplasia without lower urinary tract symptoms; K80.20 Calculus of gallbladder without cholecystitis without obstruction | CPT/HCPCS: 76770 ==

== ENCOUNTER 2022-03-17 07:54 | Emergency (ER) | payer MEDICARE, OTHER | END 2022-03-17 08:45 | disposition short-term general hospital (02) | LOC: ERS 07:54 | DX: G47.00 Insomnia, unspecified (principal); I10 Essential (primary) hypertension; E05.90 Thyrotoxicosis, unspecified without thyrotoxic crisis or storm; E78.00 Pure hypercholesterolemia, unspecified; Z79.899 Other long term (current) drug therapy | CPT/HCPCS: 99283 ==

== ENCOUNTER 2022-04-15 08:12 | Inpatient (IN) | payer MEDICARE, OTHER ==
[2022-04-15 08:57] LABS: #Eosinphils 0.3 thou/uL (0.0-0.7); #Lymphocytes 1.6 thou/uL (1.20-3.40); #Monocytes 0.5 thou/uL (0.11-0.59); #Neutrophils 2.4 thou/uL (1.40-6.50); %Basophils 0.8 % (0.0-1.0); %Lymphocytes 32.9 % (21.0-51.0); %Neutrophils 49.3 % (42.0-75.0); Hemoglobin 9.6 g/dL (14.0-18.0); Mean Corpuscular HGB CONC 31.2 g/dL (32.0-36.0); Mean Corpuscular Hemoglobin 23.3 pg (27.0-31.0); Mean Corpuscular Volume 74.6 fL (78.0-98.0); Mean Platelet Volume 11.5 fL (7.4-10.4); Platelet Count 178 thou/uL (130-400); RBC Distribution Width 14.1 % (11.5-14.5); Red Blood Cell (RBC) Count 4.14 mill/uL (4.70-6.10); White Blood Cell (WBC) Count 4.8 thou/uL (4.8-10.8)
[2022-04-15 09:03] LABS: ALT (SGPT) 20 U/L (8-55); AST (SGOT) 32 U/L (5-34); Albumin 3.6 g/dL (3.4-4.8); Alkaline Phosphatase 38 U/L (40-110); Anion Gap 16 mmol/L (10-20); BUN (Urea Nitrogen) 25 mg/dL (8.4-25.7); Bilirubin, Total 0.5 mg/dL (0.2-1.2); Calc. Creatinine Clearance 0 mL/min (70-130); Calcium 9.5 mg/dL (7.8-10.44); Carbon Dioxide 24 mmol/L (23-31); Chloride 103 mmol/L (98-107); Estimated GFR 36; Globulin 2.7 g/dL (2.4-3.5); Glucose 87 mg/dL (83-110); Lipase 18 U/L (8-78); Magnesium 1.9 mg/dL (1.6-2.6); Protein, Total 6.3 g/dL (5.8-8.1); Sodium 138 mmol/L (136-145)
[2022-04-15 09:20] LABS: Bacteria/HPF 1+ HPF (None Seen); Bilirubin Negative (Negative); Blood, Urine Negative (Negative); Clarity Clear (Clear); Glucose, Urine (Dipstick) Normal (Negative); Ketone, Urine Negative (Negative); Leukocyte 500 Leu/uL (Negative); Nitrite Negative (Negative); Protein, Urine (Dipstick) 50 mg/dL (Neg-Trace); RBC/HPF 0-3 HPF (0-3); Specific Gravity, Urine 1.014 (1.002-1.036); Squamous Epithelial None Seen HPF (0-3); Urobilinogen Normal mg/dL (Less than 2); WBC/HPF 21-50 HPF (0-3)
[2022-04-15 09:39] LABS: Hypochromia SLIGHT = 6-15 cells (100X) (0-5/hpf); MDiff Complete? YES; Microcytosis SLIGHT = 6-15 cells (100X) (0-5/hpf); Platelet Morphology Comment Appears Adequate; Polychromasia SLIGHT = 2-3 cells (100X) (0-2/hpf); Schistocytes SLIGHT = 2-5 cells (100X) (0-1/hpf)
[2022-04-15] MEDS ORDERED: Ondansetron PF 4 MG/2 ML Vial IVP PRN (11:05)
[2022-04-15] MEDS ORDERED: Acetaminophen 325 MG TAB PO PRN (11:05)
[2022-04-15] MEDS ORDERED: Aspirin Chewable 81 MG TAB ONE (11:28)
[2022-04-15] MEDS ORDERED: cefTRIAXone\\ROCEPHIN 2 GM VIAL ONE (12:08)
[2022-04-15] MEDS ORDERED: Lorazepam 0.5 MG TAB PO SCH (13:00)
[2022-04-15 19:42] VITALS: BMI 21.2
[2022-04-15] MEDS: hydrALAZINE 25 MG TAB PO SCH (20:01)
[2022-04-16] MEDS: Levothyroxine Sodium 125 MCG TAB PO SCH (05:31)
[2022-04-16 06:49] LABS: Anion Gap 16 mmol/L (10-20); BUN (Urea Nitrogen) 24 mg/dL (8.4-25.7); Calc. Creatinine Clearance 37 mL/min (70-130); Calcium 9.5 mg/dL (7.8-10.44); Carbon Dioxide 23 mmol/L (23-31); Chloride 105 mmol/L (98-107); Estimated GFR 41; Glucose 94 mg/dL (83-110); Potassium 5.3 mmol/L (3.5-5.1); Sodium 139 mmol/L (136-145)
[2022-04-16 07:22] LABS: #Eosinphils 0.4 thou/uL (0.0-0.7); #Lymphocytes 1.1 thou/uL (1.20-3.40); #Monocytes 0.5 thou/uL (0.11-0.59); #Neutrophils 2.1 thou/uL (1.40-6.50); %Basophils 0.7 % (0.0-1.0); %Eosinophils 10.3 % (0.0-10.0); %Lymphocytes 25.8 % (21.0-51.0); %Monocytes 11.6 % (0.0-10.0); %Neutrophils 51.6 % (42.0-75.0); Hemoglobin 10.5 g/dL (14.0-18.0); Mean Corpuscular HGB CONC 30.8 g/dL (32.0-36.0); Mean Corpuscular Hemoglobin 23.1 pg (27.0-31.0); Mean Corpuscular Volume 75.1 fL (78.0-98.0); Mean Platelet Volume 8.2 fL (7.4-10.4); Platelet Count 196 thou/uL (130-400); RBC Distribution Width 14.5 % (11.5-14.5); Red Blood Cell (RBC) Count 4.53 mill/uL (4.70-6.10); White Blood Cell (WBC) Count 4.1 thou/uL (4.8-10.8)
[2022-04-16 08:39] LABS: Hypochromia SLIGHT = 6-15 cells (100X) (0-5/hpf); MDiff Complete? YES; Microcytosis SLIGHT = 6-15 cells (100X) (0-5/hpf); Ovalocytes MODERATE= 6-15 cells (100X) (0-1/hpf); Platelet Morphology Comment Appears Adequate; Polychromasia SLIGHT = 2-3 cells (100X) (0-2/hpf); Schistocytes SLIGHT = 2-5 cells (100X) (0-1/hpf); Target Cells SLIGHT = 2-5 cells (100X) (0-1/hpf)
[2022-04-16] MEDS: hydrALAZINE 25 MG TAB PO SCH ×2 (09:15→20:57)
[2022-04-16] MEDS: Enoxaparin Sodium 40 MG/0.4 ML SYRINGE SC SCH (09:16)
[2022-04-16] MEDS: cefTRIAXone\\ROCEPHIN 1 GM in Sodium Chloride 0.9% 100 ML IVPB SCH (12:45)
[2022-04-16 13:46] LABS: Troponin I 0.029 ng/mL (< 0.028)
[2022-04-16] MEDS: Atorvastatin Calcium 10 MG TAB PO SCH (20:58)
[2022-04-16] MEDS: Divalproex Sodium 250 MG (DR) TAB PO SCH (21:01)
[2022-04-17] MEDS: Levothyroxine Sodium 125 MCG TAB PO SCH (05:35)
[2022-04-17] MEDS: Enoxaparin Sodium 40 MG/0.4 ML SYRINGE SC SCH (08:11)
[2022-04-17] MEDS: hydrALAZINE 25 MG TAB PO SCH ×2 (08:11→20:43)
[2022-04-17] MEDS: Amlodipine 5 MG TAB PO SCH (09:18)
[2022-04-17 09:56] LABS: Anion Gap 12 mmol/L (10-20); BUN (Urea Nitrogen) 22 mg/dL (8.4-25.7); Calc. Creatinine Clearance 37 mL/min (70-130); Carbon Dioxide 28 mmol/L (23-31); Chloride 104 mmol/L (98-107); Estimated GFR 41; Glucose 100 mg/dL (83-110); Potassium 4.2 mmol/L (3.5-5.1); Sodium 140 mmol/L (136-145)
[2022-04-17] MEDS: cefTRIAXone\\ROCEPHIN 1 GM in Sodium Chloride 0.9% 100 ML IVPB SCH (12:41)
[2022-04-17] MEDS: Atorvastatin Calcium 10 MG TAB PO SCH (20:43)
[2022-04-17] MEDS: Divalproex Sodium 250 MG (DR) TAB PO SCH (20:44)
[2022-04-18] MEDS: Levothyroxine Sodium 125 MCG TAB PO SCH (05:52)
[2022-04-18] MEDS: Amlodipine 5 MG TAB PO SCH (08:06)
[2022-04-18] MEDS: hydrALAZINE 25 MG TAB PO SCH ×2 (08:06→20:34)
[2022-04-18] MEDS: Enoxaparin Sodium 40 MG/0.4 ML SYRINGE SC SCH (08:07)
[2022-04-18] MEDS ORDERED: Amlodipine 5 MG TAB PO SCH ×2 (08:22→09:45)
[2022-04-18] MEDS: Amlodipine 10 MG TAB PO SCH (09:30)
[2022-04-18] MEDS: cefTRIAXone\\ROCEPHIN 1 GM in Sodium Chloride 0.9% 100 ML IVPB SCH (12:59)
[2022-04-18] MEDS: Divalproex Sodium 250 MG (DR) TAB PO SCH (20:33)
[2022-04-18] MEDS: Atorvastatin Calcium 10 MG TAB PO SCH (20:34)
[2022-04-19] MEDS: Levothyroxine Sodium 125 MCG TAB PO SCH (05:40)
[2022-04-19] MEDS: Enoxaparin Sodium 40 MG/0.4 ML SYRINGE SC SCH (09:12)
[2022-04-19] MEDS: hydrALAZINE 25 MG TAB PO SCH (09:12)
[2022-04-19] MEDS: Amlodipine 10 MG TAB PO SCH (09:12)
[2022-04-19 11:54] VITALS: BP 127/49; TEMP 97.8
[2022-04-19] MEDS: cefTRIAXone\\ROCEPHIN 1 GM in Sodium Chloride 0.9% 100 ML IVPB SCH (13:15)
== END 2022-04-19 13:15 | DRG 884 ==
LOC: ERS 08:12 → ERHOLD 11:05 → NEURO 19:02 → OBSVTOIN 04-16 13:15
PROVIDERS: ADMIT Internal Medicine; ATTEND Internal Medicine
DX: F03.91 Unspecified dementia, unspecified severity, with behavioral disturbance (principal); N39.0 Urinary tract infection, site not specified; I48.92 Unspecified atrial flutter; G93.49 Other encephalopathy; B96.20 Unspecified Escherichia coli [E. coli] as the cause of diseases classified elsewhere; Z20.822 Contact with and (suspected) exposure to COVID-19; E78.5 Hyperlipidemia, unspecified; F31.9 Bipolar disorder, unspecified; G47.00 Insomnia, unspecified; E89.0 Postprocedural hypothyroidism; N28.89 Other specified disorders of kidney and ureter; E87.5 Hyperkalemia; I12.9 Hypertensive chronic kidney disease with stage 1 through stage 4 chronic kidney disease, or unspecified chronic kidney disease; N18.30 Chronic kidney disease, stage 3 unspecified; Z28.21 Immunization not carried out because of patient refusal; Z79.899 Other long term (current) drug therapy; Z79.890 Hormone replacement therapy; Z99.3 Dependence on wheelchair
CPT/HCPCS: 36415; 70450; 70551; 71045; 80048; 80053; 81003; 81015; 82553; 83605; 83690; 83735; 84436; 84443; 84484; 85025; 87040; 87086; 87186; 93005; 94760; 95712; 95819; 95957; 96365; 96366; 96372; 96376; G0378; J0696; J1650; J3490; U0003; U0005

== ENCOUNTER 2022-06-09 14:53 | Outpatient (CLI) | payer MEDICARE, OTHER | END 2022-06-09 14:54 | disposition home or self-care (01) | LOC: ULT 14:53 | PROVIDERS: ATTEND Urology | DX: N28.89 Other specified disorders of kidney and ureter (principal); N28.1 Cyst of kidney, acquired | CPT/HCPCS: 76770 ==

== ENCOUNTER 2023-08-10 17:57 | Inpatient (IN) | payer MEDICARE, OTHER ==
[2023-08-10] MEDS ORDERED: cefTRIAXone (ROCEPHIN) 1 GM VIAL ONE (18:59)
[2023-08-10] MEDS ORDERED: Sodium Chloride 0.9% 100 ML ONE (18:59)
[2023-08-10 19:35] LABS: Bacteria/HPF 3+ HPF (None Seen); Bilirubin 1+ (Negative); Blood, Urine 1+ (Negative); CAUTI Indications for Culture Alt mental st,lethar; Clarity Turbid (Clear); Glucose, Urine (Dipstick) Normal (Negative); Ketone, Urine Trace mg/dL (Negative); Leukocyte 500 Leu/uL (Negative); Nitrite Negative (Negative); Protein, Urine (Dipstick) 100 mg/dL (Neg-Trace); Renal Epithelial 0-3 HPF (None Seen); Specific Gravity, Urine 1.019 (1.002-1.036); Squamous Epithelial 0-3 HPF (0-3); WBC/HPF 21-50 HPF (0-3)
[2023-08-10 19:36] LABS: Urine Culture Reflex Yes Yes
[2023-08-10 20:09] LABS: SARS-CoV-2 NAA Rapid Test Not Detected (NotDetected)
[2023-08-10 20:34] LABS: Hemoglobin 8.1 g/dL (14.0-18.0); Mean Corpuscular HGB CONC 33.8 g/dL (32.0-36.0); Mean Corpuscular Hemoglobin 25.4 pg (27.0-31.0); Mean Corpuscular Volume 75.2 fl (78.0-98.0); Platelet Count 139 10x3/uL (130-400); RBC Distribution Width 16.9 % (11.5-14.5); Red Blood Cell (RBC) Count 3.19 mill/uL (4.70-6.10); White Blood Cell (WBC) Count 8.7 10x3/uL (4.8-10.8)
[2023-08-10 20:35] LABS: Delete Auto Diff?? YES; Manual Diff?? YES
[2023-08-10 21:04] LABS: ALT (SGPT) 142 U/L (8-55); AST (SGOT) 250 U/L (5-34); Anion Gap 18 mmol/L (10-20); BUN (Urea Nitrogen) 41 mg/dL (8.4-25.7); Bilirubin, Total 2.2 mg/dL (0.2-1.2); Calc. Creatinine Clearance 0 mL/min (70-130); Calcium 8.6 mg/dL (7.8-10.44); Carbon Dioxide 22 mmol/L (23-31); Chloride 104 mmol/L (98-107); Estimated GFR 21; Globulin 2.6 g/dL (2.4-3.5); Glucose 123 mg/dL (83-110); Protein, Total 5.6 g/dL (5.8-8.1); Sodium 139 mmol/L (136-145)
[2023-08-10 21:05] LABS: Band 23 % (5-11); CellaVision Operator ID LAB.CLH1; Elliptocytes SLIGHT = 2-5 cells HPF (0-1); Hypochromia SLIGHT = 6-15 cells HPF (0-5); Large Platelets 1.9 % (0-5); Lymphocytes 8 % (21-51); Monocytes 7 % (0-10); Neutrophil 63 % (42-75); Platelet Adequacy Comment Platelets Normal; Poikilocytosis SLIGHT = 6-15 cells HPF (0-5); Target Cells MODERATE= 6-15 cells HPF (0-1); Total Cell Count 107
[2023-08-10] MEDS ORDERED: Vancomycin 1 GM/200 ML (FROZEN) BAG ONE (21:43)
[2023-08-10] MEDS ORDERED: Ondansetron PF 4 MG/2 ML Vial IVP PRN (21:45)
[2023-08-10] MEDS ORDERED: Acetaminophen 650 MG Suppository PR PRN (21:45)
[2023-08-10] MEDS ORDERED: Ondansetron ODT 4 MG TAB PO PRN (21:45)
[2023-08-10] MEDS ORDERED: Digoxin 0.5 MG/2 ML AMP SLOW IVP SCH (22:15)
[2023-08-10] MEDS ORDERED: Meropenem 1 GM in Sodium Chloride 0.9% 100 ML IVPB SCH (22:15)
[2023-08-10 22:19] LABS: Alkaline Phosphatase 317 U/L (40-110)
[2023-08-10] MEDS ORDERED: Pantoprazole 40 MG VIAL IVP SCH (22:30)
[2023-08-10] MEDS ORDERED: Digoxin 0.5 MG/2 ML AMP ONE (23:46)
[2023-08-11 00:51] LABS: Lactic Acid 5.2 mmol/L (0.5-2.2)
[2023-08-11] MEDS: Sodium Chloride 0.9% 1,000 ML IV SCH ×4 (01:09→23:50)
[2023-08-11] MEDS ORDERED: Vancomycin HCl 500 MG in Sodium Chloride 0.9% 100 ML IVPB SCH (02:45)
[2023-08-11] MEDS ORDERED: Vancomycin Dose by Levels Sliding Scale (Wt 71-99) FS SCH (02:45)
[2023-08-11 06:16] LABS: Hematocrit 21.9 % (42.0-52.0); Hemoglobin 7.5 g/dL (14.0-18.0); Mean Corpuscular HGB CONC 34.2 g/dL (32.0-36.0); Mean Corpuscular Hemoglobin 24.8 pg (27.0-31.0); Platelet Count 99 10x3/uL (130-400); RBC Distribution Width 16.6 % (11.5-14.5); Red Blood Cell (RBC) Count 3.03 mill/uL (4.70-6.10); White Blood Cell (WBC) Count 6.1 10x3/uL (4.8-10.8)
[2023-08-11 06:22] LABS: Delete Auto Diff?? YES; Manual Diff?? YES; Mean Corpuscular Volume 72.3 fl (78.0-98.0)
[2023-08-11 06:42] LABS: Anion Gap 15 mmol/L (10-20); BUN (Urea Nitrogen) 44 mg/dL (8.4-25.7); Calc. Creatinine Clearance 22 mL/min (70-130); Calcium 7.9 mg/dL (7.8-10.44); Carbon Dioxide 21 mmol/L (23-31); Chloride 106 mmol/L (98-107); Estimated GFR 22; Glucose 94 mg/dL (83-110); Potassium 4.3 mmol/L (3.5-5.1); Sodium 138 mmol/L (136-145)
[2023-08-11 06:45] LABS: Band 35 % (5-11); CellaVision Operator ID LAB.CLH1; Elliptocytes SLIGHT = 2-5 cells HPF (0-1); Eosinophils 5 % (0-10); Hypochromia SLIGHT = 6-15 cells HPF (0-5); Large Platelets 1.8 % (0-5); Metamyelocyte 4 % (0-0); Microcytosis SLIGHT = 6-15 cells HPF (0-5); Monocytes 2 % (0-10); Neutrophil 54 % (42-75); Platelet Adequacy Comment Platelets Decreased; Poikilocytosis SLIGHT = 6-15 cells HPF (0-5); Reactive Lymphocytes 1 % (0-10); Target Cells MODERATE= 6-15 cells HPF (0-1); Total Cell Count 111
[2023-08-11 06:58] LABS: ALT (SGPT) 121 U/L (8-55); AST (SGOT) 186 U/L (5-34); Albumin 2.7 g/dL (3.4-4.8); Alkaline Phosphatase 275 U/L (40-110); Bilirubin, Direct 1.8 mg/dL (0.1-0.3); Bilirubin, Total 2.4 mg/dL (0.2-1.2); Protein, Total 4.8 g/dL (5.8-8.1)
[2023-08-11] MEDS ORDERED: Metoprolol Tartrate 5 MG/5 ML VIAL IVP PRN (07:05)
[2023-08-11] MEDS ORDERED: Levothyroxine Sodium 100 MCG TAB PO SCH (07:13)
[2023-08-11] MEDS ORDERED: Pantoprazole 40 MG VIAL IVP SCH (09:00)
[2023-08-11 09:19] LABS: Lactic Acid 3.4 mmol/L (0.5-2.2)
[2023-08-11] MEDS: Meropenem 500 MG in Sodium Chloride 0.9% 100 ML IVPB SCH ×2 (09:30→22:18)
[2023-08-11 14:58] LABS: INR-International Normal Ratio 1.9; PTT 38.4 sec (22.9-36.1); Prothrombin Time 22.3 sec (12.0-14.7)
[2023-08-11] MEDS: hydrALAZINE 25 MG TAB PO SCH ×2 (15:07→22:19)
[2023-08-11] MEDS ORDERED: fentaNYL 50 mcg/mL 1 mL Vial ONE (15:17)
[2023-08-11] MEDS ORDERED: SUGAMMADEX SODIUM 200 MG/2 ML VIAL ONE (15:18)
[2023-08-11] MEDS ORDERED: Ondansetron PF 4 MG/2 ML Vial ONE (15:24)
[2023-08-11] MEDS ORDERED: Succinylcholine 200 MG/10 ml SYRINGE FS ONE (15:24)
[2023-08-11] MEDS ORDERED: PROPOFOL 20 ML ONE (15:24)
[2023-08-11] MEDS ORDERED: Dexamethasone 20 MG/5 ML VIAL ONE (15:24)
[2023-08-11] MEDS ORDERED: Rocuronium Bromide 10 MG/ML (10ML VIAL) ONE ×3 (15:24→19:01)
[2023-08-11] MEDS ORDERED: Lidocaine 1% PF 5 ML VIAL ONE ×2 (15:24→16:37)
[2023-08-11] MEDS ORDERED: EPINEPHrine 1 MG/ML VIAL ONE (15:55)
[2023-08-11] MEDS ORDERED: Glucagon 1 MG/ML KIT ONE (15:55)
[2023-08-11] MEDS ORDERED: Bupivacaine PF 0.5% 30 ML VIAL ONE (15:56)
[2023-08-11] MEDS ORDERED: Iopamidol 30 ML ONE (16:07)
[2023-08-11] MEDS ORDERED: CEFAZOLIN 2 GM VIAL ONE (16:10)
[2023-08-11] MEDS ORDERED: Sodium Chloride 0.9% 100 ML ONE (16:11)
[2023-08-11] MEDS ORDERED: PROPOFOL 200 MG/20 ML VIAL ONE (16:37)
[2023-08-11] MEDS ORDERED: PHENYLEPHRINE-NS 100 MCG/ML 10 ML SYRINGE ONE ×3 (16:37→17:26)
[2023-08-11] MEDS ORDERED: Calcium Chloride 1 GM/10 ML Abboject SYRINGE ONE ×2 (16:37→18:33)
[2023-08-11] MEDS ORDERED: Iopamidol 0 ML ONE (18:11)
[2023-08-11] MEDS ORDERED: Indomethacin 50 MG SUPP ONE ×2 (18:13→19:37)
[2023-08-11 19:56] LABS: Actual Bicarbonate (HCO3a) 19.7 mEq/L (22-28); CO2 Tension 44.9 mmHg (35.0-45.0); Calcium, Ionized (arterial) 1.13 mmol/L (1.12-1.30); Carboxyhemoglobin (COHb) 0.5 gm% (0.0-3.0); Hematocrit-ABG 26 % (42.0-52.0); Hemoglobin (Hb) 8.9 g/dL (14.0-18.0); O2 Tension (PaO2), arterial 392.1 mmHg (> 60.0); Potassium - ABG Lab 4.08 mmol/L (3.70-5.30); pH, Arterial 7.259 (7.35-7.45)
[2023-08-11 19:59] LABS: Actual Bicarbonate (HCO3v) 19.3 mEq/L (22-28); Base Excess -8.3 mEq/L (-2.0 to +3.0); Calcium, Ionized (venous) 1.14 mmol/L (1.16-1.32); Chloride (VBG) 109 mmol/L (98-106); Hematocrit-VBG 26 % (42.0-52.0); Hemoglobin (Hb) 8.9 g/dL (12.6-17.4); Potassium (VBG) 4.08 mmol/L (3.70-5.30); Sodium 138 mmol/L (133-146)
[2023-08-11 20:02] LABS: pH (venous) 7.201 (7.32-7.43)
[2023-08-11] MEDS ORDERED: Propofol 1,000 MG/100 ML VIAL IV ONE (20:40)
[2023-08-11] MEDS ORDERED: Labetalol HCl 100 MG/20 ML VIAL SLOW IVP PRN (20:56)
[2023-08-11] MEDS ORDERED: Morphine 2 MG/ML VIAL SLOW IVP PRN (21:00)
[2023-08-11] MEDS ORDERED: Ventilator Sedation Protocol 1 EACH FS SCH (21:00)
[2023-08-11] MEDS ORDERED: Fentanyl BOLUS 250 ML IVPB PRN (21:00)
[2023-08-11] MEDS ORDERED: Propofol 1,000 MG/100 ML VIAL IV PRN (21:00)
[2023-08-11] MEDS ORDERED: DISCONTINUE PREVIOUS NARCOTIC PAIN MEDICATIONS AND BENZODIAZEPINES FS SCH (21:00)
[2023-08-11] MEDS ORDERED: Mirtazapine 15 MG Soltab PO SCH (21:00)
[2023-08-11] MEDS ORDERED: Propofol BOLUS 1,000 MG/100 ML VIAL IV PRN (21:00)
[2023-08-11] MEDS: Pantoprazole 40 MG VIAL IVP SCH (22:18)
[2023-08-11 22:23] LABS: Lactic Acid 1.6 mmol/L (0.5-2.2)
[2023-08-11] MEDS: Divalproex Sodium 250 MG (DR) TAB PO SCH ×2 (23:45→23:55)
[2023-08-11] MEDS: Donepezil HCl 5 MG TAB PO SCH (23:45)
[2023-08-12] MEDS ORDERED: Valproate Sodium 250 mg/5 ml UD Cup PO SCH (00:15)
[2023-08-12] MEDS: Fentanyl CADD 100 ML IV SCH (00:18)
[2023-08-12] MEDS ORDERED: NOREPINEPHRINE 8 MG/250 ML-D5W 250 ML ONE (00:43)
[2023-08-12] MEDS ORDERED: Albumin 25% 100 ML ONE (00:44)
[2023-08-12] MEDS ORDERED: NOREPINEPHRINE 8 MG/250 ML-D5W 250 ML IVPB SCH (00:45)
[2023-08-12] MEDS: Albumin 25% 25 GM/100 ML BOT IVPB SCH ×4 (00:48→17:03)
[2023-08-12 01:41] LABS: Vancomycin, Random 8.2 ug/mL (See Comment)
[2023-08-12] MEDS ORDERED: Vancomycin 1 GM in Premix 1 BAG IVPB SCH (02:00)
[2023-08-12] MEDS: Donepezil HCl 5 MG TAB PO SCH ×2 (03:37→20:04)
[2023-08-12 04:40] LABS: Hematocrit 20.2 % (42.0-52.0); Mean Corpuscular HGB CONC 34.7 g/dL (32.0-36.0); Mean Corpuscular Hemoglobin 26.4 pg (27.0-31.0); Mean Platelet Volume 12.4 fL (7.4-10.4); Platelet Count 94 10x3/uL (130-400); RBC Distribution Width 16.6 % (11.5-14.5); Red Blood Cell (RBC) Count 2.65 mill/uL (4.70-6.10); White Blood Cell (WBC) Count 5.6 10x3/uL (4.8-10.8)
[2023-08-12 04:52] LABS: INR-International Normal Ratio 1.7
[2023-08-12 04:59] LABS: Mean Corpuscular Volume 76.2 fl (78.0-98.0)
[2023-08-12 05:00] LABS: Delete Auto Diff?? YES; Manual Diff?? YES
[2023-08-12 05:12] LABS: ALT (SGPT) 65 U/L (8-55); AST (SGOT) 110 U/L (5-34); Albumin 2.9 g/dL (3.4-4.8); Alkaline Phosphatase 155 U/L (40-110); Anion Gap 13 mmol/L (10-20); BUN (Urea Nitrogen) 48 mg/dL (8.4-25.7); Bilirubin, Total 3.3 mg/dL (0.2-1.2); Calc. Creatinine Clearance 24 mL/min (70-130); Calcium 7.6 mg/dL (7.8-10.44); Carbon Dioxide 19 mmol/L (23-31); Chloride 112 mmol/L (98-107); Estimated GFR 25; Globulin 1.8 g/dL (2.4-3.5); Glucose 105 mg/dL (83-110); Potassium 4.3 mmol/L (3.5-5.1); Protein, Total 4.7 g/dL (5.8-8.1); Sodium 140 mmol/L (136-145)
[2023-08-12] MEDS: Levothyroxine Sodium 100 MCG TAB PO SCH (05:12)
[2023-08-12 05:29] LABS: Lipase 1201 U/L (8-78)
[2023-08-12 05:35] LABS: Anisocytosis MODERATE=16-30 cells HPF (0-5); Band 9 % (5-11); Burr Cells SLIGHT = 2-5 cells HPF (0-1); CellaVision Operator ID lab.sh2; Large Platelets 5.7 % (0-5); Lymphocytes 8 % (21-51); Macrocytosis SLIGHT = 6-15 cells HPF (0-5); Microcytosis SLIGHT = 6-15 cells HPF (0-5); Monocytes 4 % (0-10); Neutrophil 80 % (42-75); Ovalocytes SLIGHT = 2-5 cells HPF (0-1); Platelet Adequacy Comment Platelets Decreased; Poikilocytosis MODERATE=16-30 cells HPF (0-5); Polychromasia MODERATE = 3-4 cells HPF (0-2); Smudge Cells 14.3 %; Target Cells MODERATE= 6-15 cells HPF (0-1); Total Cell Count 105; Vacuoles SLIGHT
[2023-08-12] MEDS ORDERED: Albumin 25% 25 GM/100 ML BOT IVPB SCH (06:00)
[2023-08-12] MEDS ORDERED: Calcium Gluc 4.6 MEQ/10 ML (100 MG/ML) SLOW IVP SCH (06:38)
[2023-08-12 06:52] LABS: Actual Bicarbonate (HCO3a) 17.3 mEq/L (22-28); Base Excess (BEa) -10.1 mEq/L (-2.0 to +3.0); CO2 Tension 45.8 mmHg (35.0-45.0); Calcium, Ionized (arterial) 1.06 mmol/L (1.12-1.30); Carboxyhemoglobin (COHb) 0.8 gm% (0.0-3.0); Hematocrit-ABG 21 % (42.0-52.0); Hemoglobin (Hb) 7.3 g/dL (14.0-18.0); Potassium - ABG Lab 4.49 mmol/L (3.70-5.30)
[2023-08-12 07:16] LABS: O2 Tension (PaO2), arterial 56.8 mmHg (> 60.0); Puncture Site Arterial Line; pH, Arterial 7.194 (7.35-7.45)
[2023-08-12] MEDS: Meropenem 500 MG in Sodium Chloride 0.9% 100 ML IVPB SCH ×2 (08:49→19:40)
[2023-08-12] MEDS: Pantoprazole 40 MG VIAL IVP SCH ×2 (08:49→20:04)
[2023-08-12] MEDS: Valproate Sodium 250 mg/5 ml UD Cup PO SCH ×4 (08:49→20:04)
[2023-08-12] MEDS: hydrALAZINE 25 MG TAB PO SCH ×2 (08:49→19:32)
[2023-08-12] MEDS: Sodium Chloride 0.9% 1,000 ML IV SCH ×2 (08:49→12:28)
[2023-08-12] MEDS: Lorazepam 2 MG/ML VIAL SLOW IVP PRN (19:59)
[2023-08-12 20:19] LABS: Hematocrit 16.7 % (42.0-52.0)
[2023-08-12] MEDS ORDERED: EPINEPHrine 1 MG/ML VIAL IJ PRN (20:58)
[2023-08-12] MEDS ORDERED: Acetaminophen 325 MG TAB PO SCH (21:00)
[2023-08-12 21:35] LABS: Hematocrit 15.9 % (42.0-52.0); Hemoglobin 5.8 g/dL (14.0-18.0); Mean Corpuscular HGB CONC 36.5 g/dL (32.0-36.0); Mean Corpuscular Hemoglobin 27.2 pg (27.0-31.0); Mean Corpuscular Volume 74.6 fl (78.0-98.0); RBC Distribution Width 16.3 % (11.5-14.5); Red Blood Cell (RBC) Count 2.13 mill/uL (4.70-6.10); White Blood Cell (WBC) Count 5.5 10x3/uL (4.8-10.8)
[2023-08-12 21:41] LABS: Platelet Count 86 10x3/uL (130-400)
[2023-08-12 21:42] LABS: Delete Auto Diff?? YES; Manual Diff?? YES
[2023-08-12 21:53] LABS: INR-International Normal Ratio 1.6; Prothrombin Time 19.8 sec (12.0-14.7)
[2023-08-12 21:54] LABS: PTT 35.4 sec (22.9-36.1)
[2023-08-12 22:02] LABS: Band 10 % (5-11); CellaVision Operator ID LAB.CLH1; Elliptocytes SLIGHT = 2-5 cells HPF (0-1); Hypochromia MODERATE=16-30 cells HPF (0-5); Large Platelets 3.8 % (0-5); Lymphocytes 8 % (21-51); Metamyelocyte 1 % (0-0); Microcytosis SLIGHT = 6-15 cells HPF (0-5); Monocytes 3 % (0-10); Neutrophil 79 % (42-75); Nucleated RBC (Manual Ct) 1 % (0); Platelet Adequacy Comment Platelets Decreased; Poikilocytosis SLIGHT = 6-15 cells HPF (0-5); Polychromasia SLIGHT = 2-3 cells HPF (0-2); Target Cells MODERATE= 6-15 cells HPF (0-1); Total Cell Count 104
[2023-08-12] MEDS: Acetaminophen 650 MG/20.3 ML UDCUP PO SCH ×2 (22:52→23:02)
[2023-08-13] MEDS: DOPamine 400 MG/D5W 250 ML 250 ML ONE ×2 (00:30→11:29)
[2023-08-13] MEDS ORDERED: Calcium Chloride 1 GM/10 ML Abboject SYRINGE ONE (00:35)
[2023-08-13] MEDS ORDERED: Magnesium 2 GM/50 ML(in water) 2 GM in Premix 1 BAG IVPB SCH (00:45)
[2023-08-13 00:57] LABS: ALT (SGPT) 31 U/L (8-55); AST (SGOT) 64 U/L (5-34); Albumin 2.8 g/dL (3.4-4.8); Alkaline Phosphatase 110 U/L (40-110); Anion Gap 14 mmol/L (10-20); BUN (Urea Nitrogen) 49 mg/dL (8.4-25.7); Bilirubin, Total 1.7 mg/dL (0.2-1.2); Calc. Creatinine Clearance 24 mL/min (70-130); Calcium 7.1 mg/dL (7.8-10.44); Carbon Dioxide 16 mmol/L (23-31); Chloride 115 mmol/L (98-107); Estimated GFR 24; Globulin 1.5 g/dL (2.4-3.5); Glucose 95 mg/dL (83-110); Magnesium 1.6 mg/dL (1.6-2.6); Potassium 4.2 mmol/L (3.5-5.1); Protein, Total 4.3 g/dL (5.8-8.1); Sodium 141 mmol/L (136-145)
[2023-08-13] MEDS ORDERED: Calcium Chloride 13.6 MEQ in Sodium Chloride 0.9% 100 ML IVPB SCH (01:00)
[2023-08-13 01:08] LABS: Vancomycin, Random 15.1 ug/mL (See Comment)
[2023-08-13 01:29] LABS: Hematocrit 18.7 % (42.0-52.0); Hemoglobin 6.6 g/dL (14.0-18.0)
[2023-08-13 01:30] LABS: Platelet Count 68 10x3/uL (130-400)
[2023-08-13] MEDS ORDERED: Sodium Bicarb 50 MEQ/50 ML Abboject 8.4% SYRINGE IVP SCH (01:30)
[2023-08-13 01:38] LABS: Actual Bicarbonate (HCO3a) 16.6 mEq/L (22-28); Base Excess (BEa) -6.6 mEq/L (-2.0 to +3.0); CO2 Tension 26.2 mmHg (35.0-45.0); Calcium, Ionized (arterial) 1.16 mmol/L (1.12-1.30); Carboxyhemoglobin (COHb) 0.3 gm% (0.0-3.0); Hematocrit-ABG 30 % (42.0-52.0); Hemoglobin (Hb) 10.1 g/dL (14.0-18.0); Potassium - ABG Lab 3.75 mmol/L (3.70-5.30)
[2023-08-13 01:39] LABS: Puncture Site Arterial Line
[2023-08-13 01:42] LABS: INR-International Normal Ratio 1.6; Prothrombin Time 19.4 sec (12.0-14.7)
[2023-08-13 01:43] LABS: PTT 34.9 sec (22.9-36.1)
[2023-08-13] MEDS: Sodium Chloride 0.9% 1,000 ML IV SCH ×3 (01:58→17:03)
[2023-08-13] MEDS ORDERED: Vancomycin HCl 750 MG in Sodium Chloride 0.9% 250 ML 250 ML IVPB SCH (02:00)
[2023-08-13] MEDS ORDERED: Sodium Bicarb 50 MEQ/50 ML VIAL IVP SCH (02:00)
[2023-08-13] MEDS ORDERED: DOPamine 400 MG/D5W 250 ML 250 ML IVPB SCH ×2 (02:15→14:30)
[2023-08-13 02:23] LABS: Lactic Acid 1.4 mmol/L (0.5-2.2)
[2023-08-13 04:36] LABS: Hematocrit 27.6 % (42.0-52.0); Mean Corpuscular HGB CONC 36.6 g/dL (32.0-36.0); Mean Corpuscular Hemoglobin 28.3 pg (27.0-31.0); RBC Distribution Width 16.4 % (11.5-14.5); Red Blood Cell (RBC) Count 3.57 mill/uL (4.70-6.10); White Blood Cell (WBC) Count 6.4 10x3/uL (4.8-10.8)
[2023-08-13 04:44] LABS: Delete Auto Diff?? YES; Hemoglobin 10.1 g/dL (14.0-18.0); Manual Diff?? YES; Mean Corpuscular Volume 77.3 fl (78.0-98.0); Platelet Count 77 10x3/uL (130-400)
[2023-08-13 05:08] LABS: ALT (SGPT) 36 U/L (8-55); AST (SGOT) 75 U/L (5-34); Albumin 3.2 g/dL (3.4-4.8); Alkaline Phosphatase 163 U/L (40-110); Anion Gap 15 mmol/L (10-20); BUN (Urea Nitrogen) 47 mg/dL (8.4-25.7); Bilirubin, Total 2.4 mg/dL (0.2-1.2); Calc. Creatinine Clearance 26 mL/min (70-130); Calcium 8.4 mg/dL (7.8-10.44); Carbon Dioxide 19 mmol/L (23-31); Chloride 113 mmol/L (98-107); Estimated GFR 25; Glucose 103 mg/dL (83-110); Lipase 135 U/L (8-78); Potassium 4.1 mmol/L (3.5-5.1); Protein, Total 5.2 g/dL (5.8-8.1); Sodium 143 mmol/L (136-145)
[2023-08-13 05:19] LABS: Troponin I 0.319 ng/mL (< 0.028)
[2023-08-13 05:22] LABS: Anisocytosis SLIGHT = 6-15 cells HPF (0-5); Band 14 % (5-11); CellaVision Operator ID LAB.CLH1; Elliptocytes SLIGHT = 2-5 cells HPF (0-1); Eosinophils 1 % (0-10); Hypochromia SLIGHT = 6-15 cells HPF (0-5); Large Platelets 2.9 % (0-5); Lymphocytes 11 % (21-51); Microcytosis SLIGHT = 6-15 cells HPF (0-5); Monocytes 4 % (0-10); Neutrophil 68 % (42-75); Nucleated RBC (Manual Ct) 2 % (0); Platelet Adequacy Comment Platelets Decreased; Poikilocytosis MODERATE=16-30 cells HPF (0-5); Polychromasia SLIGHT = 2-3 cells HPF (0-2); Reactive Lymphocytes 3 % (0-10); Schistocytes SLIGHT = 2-5 cells HPF (0-1); Target Cells SLIGHT = 2-5 cells HPF (0-1); Total Cell Count 102
[2023-08-13 07:21] LABS: Troponin I 0.368 ng/mL (< 0.028)
[2023-08-13] MEDS: Levothyroxine Sodium 100 MCG TAB PO SCH (07:28)
[2023-08-13 07:42] LABS: Actual Bicarbonate (HCO3a) 19.5 mEq/L (22-28); Base Excess (BEa) -4.2 mEq/L (-2.0 to +3.0); CO2 Tension 31.2 mmHg (35.0-45.0); Calcium, Ionized (arterial) 1.12 mmol/L (1.12-1.30); Carboxyhemoglobin (COHb) 0.3 gm% (0.0-3.0); Hematocrit-ABG 31 % (42.0-52.0); Hemoglobin (Hb) 10.4 g/dL (14.0-18.0); O2 Tension (PaO2), arterial 129.5 mmHg (> 60.0); Potassium - ABG Lab 3.67 mmol/L (3.70-5.30); pH, Arterial 7.414 (7.35-7.45)
[2023-08-13 07:43] LABS: Puncture Site Arterial Line
[2023-08-13] MEDS: Valproate Sodium 250 mg/5 ml UD Cup PO SCH ×4 (09:37→21:03)
[2023-08-13] MEDS: hydrALAZINE 25 MG TAB PO SCH ×2 (09:37→21:04)
[2023-08-13] MEDS: Meropenem 500 MG in Sodium Chloride 0.9% 100 ML IVPB SCH ×2 (09:37→21:03)
[2023-08-13] MEDS: Pantoprazole 40 MG VIAL IVP SCH ×2 (09:37→20:06)
[2023-08-13] MEDS: Fentanyl CADD 100 ML IV SCH (17:21)
[2023-08-13] MEDS: Lorazepam 2 MG/ML VIAL SLOW IVP PRN (20:06)
[2023-08-13 20:13] LABS: Hematocrit 27.7 % (42.0-52.0)
[2023-08-13 20:21] LABS: Platelet Count 72 10x3/uL (130-400)
[2023-08-13] MEDS: Donepezil HCl 5 MG TAB PO SCH (21:04)
[2023-08-13] MEDS: DOPamine 400 MG/D5W 250 ML 250 ML IVPB SCH (23:53)
[2023-08-14 02:43] LABS: Hematocrit 29.4 % (42.0-52.0); Hemoglobin 10.8 g/dL (14.0-18.0); Mean Corpuscular HGB CONC 36.7 g/dL (32.0-36.0); Mean Corpuscular Hemoglobin 28.6 pg (27.0-31.0); Mean Corpuscular Volume 77.8 fl (78.0-98.0); RBC Distribution Width 16.7 % (11.5-14.5); Red Blood Cell (RBC) Count 3.78 mill/uL (4.70-6.10); White Blood Cell (WBC) Count 7.2 10x3/uL (4.8-10.8)
[2023-08-14 02:55] LABS: Delete Auto Diff?? YES; Manual Diff?? YES; Platelet Count 67 10x3/uL (130-400)
[2023-08-14 03:00] LABS: Vancomycin, Random 14.5 ug/mL (See Comment)
[2023-08-14 03:10] LABS: ALT (SGPT) 26 U/L (8-55); AST (SGOT) 44 U/L (5-34); Albumin 2.7 g/dL (3.4-4.8); Alkaline Phosphatase 181 U/L (40-110); Anion Gap 13 mmol/L (10-20); BUN (Urea Nitrogen) 41 mg/dL (8.4-25.7); Bilirubin, Total 1.6 mg/dL (0.2-1.2); Calc. Creatinine Clearance 32 mL/min (70-130); Calcium 7.8 mg/dL (7.8-10.44); Carbon Dioxide 17 mmol/L (23-31); Chloride 115 mmol/L (98-107); Estimated GFR 32; Glucose 124 mg/dL (83-110); Magnesium 1.8 mg/dL (1.6-2.6); Potassium 3.8 mmol/L (3.5-5.1); Protein, Total 4.7 g/dL (5.8-8.1); Sodium 141 mmol/L (136-145)
[2023-08-14 03:13] LABS: Anisocytosis MODERATE=16-30 cells HPF (0-5); Band 4 % (5-11); Burr Cells SLIGHT = 2-5 cells HPF (0-1); CellaVision Operator ID LAB.JMM; Elliptocytes SLIGHT = 2-5 cells HPF (0-1); Lymphocytes 8 % (21-51); Macrocytosis SLIGHT = 6-15 cells HPF (0-5); Monocytes 5 % (0-10); Neutrophil 83 % (42-75); Platelet Adequacy Comment Platelets Decreased; Poikilocytosis SLIGHT = 6-15 cells HPF (0-5); Polychromasia MODERATE = 3-4 cells HPF (0-2); Target Cells SLIGHT = 2-5 cells HPF (0-1); Total Cell Count 100
[2023-08-14] MEDS ORDERED: Vancomycin HCl 750 MG in Sodium Chloride 0.9% 250 ML 250 ML IVPB SCH (04:00)
[2023-08-14] MEDS: NOREPINEPHRINE 8 MG/250 ML-D5W 250 ML IVPB SCH (04:06)
[2023-08-14] MEDS: Levothyroxine Sodium 100 MCG TAB PO SCH (05:00)
[2023-08-14] MEDS: Sodium Chloride 0.9% 1,000 ML IV SCH (05:00)
[2023-08-14 07:26] LABS: Actual Bicarbonate (HCO3a) 18.5 mEq/L (22-28); Base Excess (BEa) -6.7 mEq/L (-2.0 to +3.0); CO2 Tension 35.5 mmHg (35.0-45.0); Calcium, Ionized (arterial) 1.11 mmol/L (1.12-1.30); Carboxyhemoglobin (COHb) 0.2 gm% (0.0-3.0); Hematocrit-ABG 33 % (42.0-52.0); Hemoglobin (Hb) 11.3 g/dL (14.0-18.0); O2 Tension (PaO2), arterial 123.1 mmHg (> 60.0); Potassium - ABG Lab 3.74 mmol/L (3.70-5.30); pH, Arterial 7.334 (7.35-7.45)
[2023-08-14 07:51] LABS: ALV-art Gradient 117.725 mmHg (0-20); Puncture Site Arterial Line
[2023-08-14] MEDS: Pantoprazole 40 MG VIAL IVP SCH ×2 (08:11→20:34)
[2023-08-14] MEDS: hydrALAZINE 25 MG TAB PO SCH ×2 (08:11→20:28)
[2023-08-14] MEDS: Valproate Sodium 250 mg/5 ml UD Cup PO SCH ×4 (08:11→20:34)
[2023-08-14] MEDS ORDERED: FLU VACC QS2023(65UP)/MF59C/PF 60 MCG/0.5 ML SYRINGE IM ONE (09:00)
[2023-08-14] MEDS: Sodium Chloride 0.45% 1,000 ML IV SCH ×2 (09:18→16:17)
[2023-08-14] MEDS: Meropenem 500 MG in Sodium Chloride 0.9% 100 ML IVPB SCH ×2 (09:18→20:36)
[2023-08-14] MEDS: Lorazepam 2 MG/ML VIAL SLOW IVP PRN (16:21)
[2023-08-14 18:23] LABS: Hematocrit 29.2 % (42.0-52.0); Hemoglobin 10.3 g/dL (14.0-18.0); Mean Corpuscular HGB CONC 35.3 g/dL (32.0-36.0); Mean Corpuscular Hemoglobin 28.4 pg (27.0-31.0); RBC Distribution Width 17.3 % (11.5-14.5); Red Blood Cell (RBC) Count 3.63 mill/uL (4.70-6.10); White Blood Cell (WBC) Count 7.6 10x3/uL (4.8-10.8)
[2023-08-14 18:46] LABS: Delete Auto Diff?? YES; Platelet Count 67 10x3/uL (130-400)
[2023-08-14 20:09] LABS: Manual Diff?? YES
[2023-08-14 20:10] LABS: Anisocytosis SLIGHT = 6-15 cells HPF (0-5); Band 3 % (5-11); Burr Cells SLIGHT = 2-5 cells HPF (0-1); CellaVision Operator ID lab.abc; Eosinophils 1 % (0-10); Large Platelets 2.6 % (0-5); Lymphocytes 8 % (21-51); Monocytes 10 % (0-10); Myelocyte 1 % (0-0); Neutrophil 77 % (42-75); Nucleated RBC (Manual Ct) 3 % (0); Platelet Adequacy Comment Platelets Decreased; Poikilocytosis SLIGHT = 6-15 cells HPF (0-5); Polychromasia SLIGHT = 2-3 cells HPF (0-2); Smudge Cells 7.8 %; Target Cells SLIGHT = 2-5 cells HPF (0-1); Total Cell Count 116
[2023-08-14 20:11] LABS: Mean Corpuscular Volume 80.4 fl (78.0-98.0)
[2023-08-14] MEDS: Donepezil HCl 5 MG TAB PO SCH (20:34)
[2023-08-14] MEDS: Fentanyl CADD 100 ML IV SCH (21:17)
[2023-08-15] MEDS: Sodium Chloride 0.45% 1,000 ML IV SCH ×3 (00:21→16:56)
[2023-08-15] MEDS: DOPamine 400 MG/D5W 250 ML 250 ML IVPB SCH ×2 (00:21→13:51)
[2023-08-15 04:38] LABS: Hematocrit 29.1 % (42.0-52.0); Hemoglobin 10.2 g/dL (14.0-18.0); Mean Corpuscular HGB CONC 35.1 g/dL (32.0-36.0); Mean Corpuscular Hemoglobin 28.3 pg (27.0-31.0); Mean Corpuscular Volume 80.8 fl (78.0-98.0); RBC Distribution Width 17.4 % (11.5-14.5); White Blood Cell (WBC) Count 7.9 10x3/uL (4.8-10.8)
[2023-08-15 04:43] LABS: Manual Diff?? YES; Platelet Count 72 10x3/uL (130-400)
[2023-08-15 04:44] LABS: Delete Auto Diff?? YES
[2023-08-15 04:59] LABS: Vancomycin, Random 15.3 ug/mL (See Comment)
[2023-08-15 05:03] LABS: ALT (SGPT) 20 U/L (8-55); AST (SGOT) 36 U/L (5-34); Albumin 2.5 g/dL (3.4-4.8); Alkaline Phosphatase 192 U/L (40-110); Anion Gap 11 mmol/L (10-20); BUN (Urea Nitrogen) 43 mg/dL (8.4-25.7); Bilirubin, Total 1.1 mg/dL (0.2-1.2); Calc. Creatinine Clearance 34 mL/min (70-130); Calcium 7.5 mg/dL (7.8-10.44); Carbon Dioxide 17 mmol/L (23-31); Chloride 112 mmol/L (98-107); Estimated GFR 33; Globulin 2.1 g/dL (2.4-3.5); Glucose 137 mg/dL (83-110); Potassium 3.7 mmol/L (3.5-5.1); Protein, Total 4.6 g/dL (5.8-8.1); Sodium 136 mmol/L (136-145)
[2023-08-15 05:12] LABS: Anisocytosis SLIGHT = 6-15 cells HPF (0-5); Band 3 % (5-11); Burr Cells SLIGHT = 2-5 cells HPF (0-1); CellaVision Operator ID lab.abc; Eosinophils 2 % (0-10); Lymphocytes 6 % (21-51); Microcytosis SLIGHT = 6-15 cells HPF (0-5); Monocytes 9 % (0-10); Myelocyte 1 % (0-0); Neutrophil 78 % (42-75); Nucleated RBC (Manual Ct) 2 % (0); Platelet Adequacy Comment Platelets Decreased; Poikilocytosis SLIGHT = 6-15 cells HPF (0-5); Polychromasia SLIGHT = 2-3 cells HPF (0-2); Reactive Lymphocytes 1 % (0-10); Smudge Cells 5.9 %; Target Cells SLIGHT = 2-5 cells HPF (0-1); Total Cell Count 101
[2023-08-15] MEDS ORDERED: Vancomycin HCl 750 MG VIAL ONE (05:13)
[2023-08-15] MEDS ORDERED: Sodium Chloride 0.9% 0 ML ONE (05:14)
[2023-08-15] MEDS: Levothyroxine Sodium 100 MCG TAB PO SCH (05:47)
[2023-08-15] MEDS ORDERED: Vancomycin HCl 750 MG in Sodium Chloride 0.9% 250 ML 250 ML IVPB SCH (06:00)
[2023-08-15 07:37] LABS: Base Excess (BEa) -8.7 mEq/L (-2.0 to +3.0); CO2 Tension 35.6 mmHg (35.0-45.0); Carboxyhemoglobin (COHb) 0.8 gm% (0.0-3.0); Hematocrit-ABG 31 % (42.0-52.0); Hemoglobin (Hb) 10.7 g/dL (14.0-18.0); O2 Tension (PaO2), arterial 64.6 mmHg (> 60.0); pH, Arterial 7.296 (7.35-7.45)
[2023-08-15 07:55] LABS: Puncture Site Arterial Line
[2023-08-15] MEDS ORDERED: Furosemide 40 MG/4 ML VIAL SLOW IVP SCH (08:00)
[2023-08-15] MEDS: Albumin 25% 25 GM/100 ML BOT IVPB SCH ×3 (08:35→23:20)
[2023-08-15] MEDS: Pantoprazole 40 MG VIAL IVP SCH ×2 (08:42→20:43)
[2023-08-15] MEDS: Valproate Sodium 250 mg/5 ml UD Cup PO SCH ×4 (08:42→20:44)
[2023-08-15] MEDS: Metolazone 2.5 MG TAB PO SCH (08:56)
[2023-08-15] MEDS: hydrALAZINE 25 MG TAB PO SCH ×2 (08:57→20:43)
[2023-08-15] MEDS: Meropenem 500 MG in Sodium Chloride 0.9% 100 ML IVPB SCH ×2 (09:26→20:43)
[2023-08-15] MEDS: NOREPINEPHRINE 8 MG/250 ML-D5W 250 ML IVPB SCH (10:39)
[2023-08-15] MEDS: Acetaminophen 325 MG TAB PO PRN ×2 (14:10→20:52)
[2023-08-15] MEDS ORDERED: Vasopressin 20 UNITS in Sodium Chloride 0.9% 50 ML IV SCH (15:30)
[2023-08-15] MEDS ORDERED: Calcium Chloride 13.6 MEQ in Sodium Chloride 0.9% 100 ML IVPB SCH (15:45)
[2023-08-15 19:14] LABS: Hematocrit 22.2 % (42.0-52.0); Hemoglobin 7.7 g/dL (14.0-18.0)
[2023-08-15 19:20] LABS: Platelet Count 55 10x3/uL (130-400)
[2023-08-15] MEDS: Donepezil HCl 5 MG TAB PO SCH (20:44)
[2023-08-15] MEDS: Fentanyl CADD 100 ML IV SCH (23:03)
[2023-08-15] MEDS: Lorazepam 2 MG/ML VIAL SLOW IVP PRN (23:03)
[2023-08-15] MEDS ORDERED: GLYCOPYRROLATE/PF 0.2 MG/ML VIAL SLOW IVP PRN (23:14)
[2023-08-16 04:20] LABS: Hemoglobin 7.2 g/dL (14.0-18.0); Mean Corpuscular HGB CONC 34.3 g/dL (32.0-36.0); Mean Corpuscular Volume 81.7 fl (78.0-98.0); Red Blood Cell (RBC) Count 2.57 mill/uL (4.70-6.10); White Blood Cell (WBC) Count 7.1 10x3/uL (4.8-10.8)
[2023-08-16 04:41] LABS: ALT (SGPT) 14 U/L (8-55); AST (SGOT) 27 U/L (5-34); Albumin 3.1 g/dL (3.4-4.8); Alkaline Phosphatase 125 U/L (40-110); Anion Gap 12 mmol/L (10-20); BUN (Urea Nitrogen) 45 mg/dL (8.4-25.7); Bilirubin, Total 0.9 mg/dL (0.2-1.2); Calc. Creatinine Clearance 33 mL/min (70-130); Calcium 7.7 mg/dL (7.8-10.44); Carbon Dioxide 18 mmol/L (23-31); Chloride 111 mmol/L (98-107); Estimated GFR 31; Globulin 1.3 g/dL (2.4-3.5); Glucose 127 mg/dL (83-110); Potassium 3.9 mmol/L (3.5-5.1); Protein, Total 4.4 g/dL (5.8-8.1); Sodium 137 mmol/L (136-145)
[2023-08-16 04:57] LABS: Delete Auto Diff?? YES; Manual Diff?? YES; Platelet Count 48 10x3/uL (130-400)
[2023-08-16 05:31] LABS: Vancomycin, Random 19.5 ug/mL (See Comment)
[2023-08-16 05:35] LABS: Anisocytosis MODERATE=16-30 cells HPF (0-5); Band 14 % (5-11); CellaVision Operator ID LAB.JMM; Hypochromia MODERATE=16-30 cells HPF (0-5); Lymphocytes 5 % (21-51); Macrocytosis MODERATE=16-30 cells HPF (0-5); Monocytes 3 % (0-10); Neutrophil 79 % (42-75); Platelet Adequacy Comment Significant decrease; Polychromasia SLIGHT = 2-3 cells HPF (0-2); Total Cell Count 103
[2023-08-16] MEDS: Levothyroxine Sodium 100 MCG TAB PO SCH (06:20)
[2023-08-16] MEDS: Sodium Chloride 0.45% 1,000 ML IV SCH ×2 (06:21→11:10)
[2023-08-16 07:24] LABS: Actual Bicarbonate (HCO3a) 15.9 mEq/L (22-28); Base Excess (BEa) -9.3 mEq/L (-2.0 to +3.0); Calcium, Ionized (arterial) 1.13 mmol/L (1.12-1.30); Carboxyhemoglobin (COHb) 0.7 gm% (0.0-3.0); Hematocrit-ABG 23 % (42.0-52.0); Hemoglobin (Hb) 7.9 g/dL (14.0-18.0); Potassium - ABG Lab 3.73 mmol/L (3.70-5.30); pH, Arterial 7.315 (7.35-7.45)
[2023-08-16 07:42] LABS: Puncture Site Arterial Line
[2023-08-16] MEDS ORDERED: Vancomycin HCl 500 MG in Sodium Chloride 0.9% 100 ML IV SCH (08:00)
[2023-08-16] MEDS: Albumin 25% 25 GM/100 ML BOT IVPB SCH (08:32)
[2023-08-16] MEDS: Valproate Sodium 250 mg/5 ml UD Cup PO SCH ×4 (08:33→21:16)
[2023-08-16] MEDS: Pantoprazole 40 MG VIAL IVP SCH ×2 (08:34→21:16)
[2023-08-16] MEDS: hydrALAZINE 25 MG TAB PO SCH (09:00)
[2023-08-16] MEDS: Metolazone 2.5 MG TAB PO SCH (09:07)
[2023-08-16] MEDS: Meropenem 500 MG in Sodium Chloride 0.9% 100 ML IVPB SCH ×2 (09:17→21:16)
[2023-08-16] MEDS ORDERED: Acetaminophen 325 MG/10.15 ML UDCUP PO SCH (09:45)
[2023-08-16] MEDS ORDERED: Furosemide 40 MG/4 ML VIAL SLOW IVP SCH (09:45)
[2023-08-16] MEDS: traMADol HCl 50 MG TAB PO SCH ×3 (10:21→21:36)
[2023-08-16] MEDS ORDERED: Metolazone 5 MG TAB PO SCH (12:15)
[2023-08-16] MEDS: Furosemide 40 MG/4 ML VIAL SLOW IVP SCH ×2 (13:32→13:39)
[2023-08-16 20:43] LABS: Hematocrit 21.2 % (42.0-52.0); Hemoglobin 7.4 g/dL (14.0-18.0)
[2023-08-16 20:44] LABS: Platelet Count 61 10x3/uL (130-400)
[2023-08-16] MEDS: Metoclopramide HCl 10 MG/2 ML VIAL IVP SCH (21:16)
[2023-08-17] MEDS: traMADol HCl 50 MG TAB PO SCH ×4 (03:53→21:14)
[2023-08-17 04:50] LABS: Hematocrit 22.7 % (42.0-52.0); Hemoglobin 7.8 g/dL (14.0-18.0); Mean Corpuscular HGB CONC 34.4 g/dL (32.0-36.0); Mean Corpuscular Hemoglobin 28.1 pg (27.0-31.0); Mean Corpuscular Volume 81.7 fl (78.0-98.0); Mean Platelet Volume 11.1 fL (7.4-10.4); RBC Distribution Width 18.2 % (11.5-14.5); Red Blood Cell (RBC) Count 2.78 mill/uL (4.70-6.10); White Blood Cell (WBC) Count 10.2 10x3/uL (4.8-10.8)
[2023-08-17 05:08] LABS: Delete Auto Diff?? YES; Manual Diff?? YES; Platelet Count 78 10x3/uL (130-400)
[2023-08-17 05:49] LABS: Band 3 % (5-11); CellaVision Operator ID lab.abc; Hemoglobin C Crystals SLIGHT; Hypochromia SLIGHT = 6-15 cells HPF (0-5); Lymphocytes 4 % (21-51); Metamyelocyte 1 % (0-0); Monocytes 5 % (0-10); Neutrophil 87 % (42-75); Platelet Adequacy Comment Platelets Decreased; Polychromasia SLIGHT = 2-3 cells HPF (0-2); Total Cell Count 100
[2023-08-17] MEDS: Levothyroxine Sodium 100 MCG TAB PO SCH (05:55)
[2023-08-17] MEDS: Furosemide 40 MG/4 ML VIAL SLOW IVP SCH ×3 (05:55→13:51)
[2023-08-17] MEDS: Metoclopramide HCl 10 MG/2 ML VIAL IVP SCH ×3 (05:56→21:14)
[2023-08-17 06:05] LABS: ALT (SGPT) 12 U/L (8-55); AST (SGOT) 28 U/L (5-34); Albumin 2.6 g/dL (3.4-4.8); Alkaline Phosphatase 113 U/L (40-110); Anion Gap 10 mmol/L (10-20); BUN (Urea Nitrogen) 46 mg/dL (8.4-25.7); Bilirubin, Total 1.1 mg/dL (0.2-1.2); Calc. Creatinine Clearance 33 mL/min (70-130); Calcium 7.7 mg/dL (7.8-10.44); Carbon Dioxide 21 mmol/L (23-31); Chloride 108 mmol/L (98-107); Estimated GFR 33; Globulin 1.5 g/dL (2.4-3.5); Glucose 70 mg/dL (83-110); Magnesium 1.5 mg/dL (1.6-2.6); Potassium 3.4 mmol/L (3.5-5.1); Protein, Total 4.1 g/dL (5.8-8.1); Sodium 136 mmol/L (136-145)
[2023-08-17 07:25] LABS: Actual Bicarbonate (HCO3a) 17.6 mEq/L (22-28); Base Excess (BEa) -6.7 mEq/L (-2.0 to +3.0); CO2 Tension 30.2 mmHg (35.0-45.0); Calcium, Ionized (arterial) 1.13 mmol/L (1.12-1.30); Carboxyhemoglobin (COHb) 0.4 gm% (0.0-3.0); Hematocrit-ABG 25 % (42.0-52.0); Hemoglobin (Hb) 8.4 g/dL (14.0-18.0); O2 Tension (PaO2), arterial 111.8 mmHg (> 60.0); Potassium - ABG Lab 3.33 mmol/L (3.70-5.30); pH, Arterial 7.383 (7.35-7.45)
[2023-08-17 07:31] LABS: Puncture Site RRA
[2023-08-17 08:16] LABS: Vancomycin, Random 20.2 ug/mL (See Comment)
[2023-08-17 08:43] LABS: Phosphorus 3.1 mg/dL (2.3-4.7)
[2023-08-17] MEDS: Meropenem 500 MG in Sodium Chloride 0.9% 100 ML IVPB SCH ×2 (08:55→21:13)
[2023-08-17] MEDS: Metolazone 2.5 MG TAB PO SCH (08:55)
[2023-08-17] MEDS: Pantoprazole 40 MG VIAL IVP SCH ×2 (09:02→21:13)
[2023-08-17] MEDS: Valproate Sodium 250 mg/5 ml UD Cup PO SCH ×4 (09:02→21:14)
[2023-08-17] MEDS: Acetaminophen 325 MG TAB PO SCH ×2 (14:22→21:12)
[2023-08-17] MEDS ORDERED: Potassium Chloride 20 MEQ in Premix 1 BAG IVPB SCH ×2 (15:15→15:30)
[2023-08-17] MEDS ORDERED: Magnesium Sulfate 4 GM in Sodium Chloride 0.9% 250 ML 250 ML IVPB SCH (15:15)
[2023-08-17] MEDS ORDERED: Magnesium Sulfate In Water 4 GM in Premix 1 BAG IVPB SCH (15:30)
[2023-08-18] MEDS: Acetaminophen 325 MG TAB PO SCH ×4 (02:59→21:01)
[2023-08-18] MEDS: traMADol HCl 50 MG TAB PO SCH ×4 (03:00→21:01)
[2023-08-18] MEDS: Metoclopramide HCl 10 MG/2 ML VIAL IVP SCH ×4 (05:41→21:02)
[2023-08-18] MEDS: Levothyroxine Sodium 100 MCG TAB PO SCH (05:41)
[2023-08-18] MEDS: Furosemide 40 MG/4 ML VIAL SLOW IVP SCH ×2 (05:41→13:35)
[2023-08-18 06:38] LABS: ALT (SGPT) 15 U/L (8-55); AST (SGOT) 34 U/L (5-34); Albumin 2.3 g/dL (3.4-4.8); Alkaline Phosphatase 127 U/L (40-110); Anion Gap 13 mmol/L (10-20); BUN (Urea Nitrogen) 53 mg/dL (8.4-25.7); Bilirubin, Total 1.1 mg/dL (0.2-1.2); Calc. Creatinine Clearance 35 mL/min (70-130); Carbon Dioxide 21 mmol/L (23-31); Chloride 107 mmol/L (98-107); Estimated GFR 32; Glucose 125 mg/dL (83-110); Potassium 3.8 mmol/L (3.5-5.1); Protein, Total 4.3 g/dL (5.8-8.1); Sodium 137 mmol/L (136-145)
[2023-08-18 07:09] LABS: Hematocrit 23.3 % (42.0-52.0); Hemoglobin 7.9 g/dL (14.0-18.0); Mean Corpuscular HGB CONC 33.9 g/dL (32.0-36.0); Mean Corpuscular Hemoglobin 28.2 pg (27.0-31.0); Mean Corpuscular Volume 83.2 fl (78.0-98.0); Mean Platelet Volume 12.6 fL (7.4-10.4); Platelet Count 146 10x3/uL (130-400); RBC Distribution Width 18.6 % (11.5-14.5)
[2023-08-18 07:43] LABS: Delete Auto Diff?? YES; Manual Diff?? YES
[2023-08-18 08:16] LABS: Band 7 % (5-11); CellaVision Operator ID LAB.GE; Hypochromia SLIGHT = 6-15 cells HPF (0-5); Lymphocytes 6 % (21-51); Monocytes 5 % (0-10); Neutrophil 81 % (42-75); Platelet Adequacy Comment Platelets Normal; Polychromasia MODERATE = 3-4 cells HPF (0-2); Schistocytes SLIGHT = 2-5 cells HPF (0-1); Total Cell Count 102
[2023-08-18] MEDS: Pantoprazole 40 MG VIAL IVP SCH ×2 (08:21→21:02)
[2023-08-18] MEDS: Valproate Sodium 250 mg/5 ml UD Cup PO SCH ×4 (08:21→21:02)
[2023-08-18] MEDS: Metolazone 2.5 MG TAB PO SCH (08:21)
[2023-08-18] MEDS: Meropenem 500 MG in Sodium Chloride 0.9% 100 ML IVPB SCH ×2 (08:22→21:02)
[2023-08-18] MEDS ORDERED: Artificial Tear Sol 15 ML BOT EA EYE PRN (16:54)
[2023-08-19] MEDS: Acetaminophen 325 MG TAB PO SCH ×4 (03:04→20:33)
[2023-08-19] MEDS: traMADol HCl 50 MG TAB PO SCH ×4 (03:04→22:43)
[2023-08-19] MEDS: Levothyroxine Sodium 100 MCG TAB PO SCH (05:44)
[2023-08-19] MEDS: Furosemide 40 MG/4 ML VIAL SLOW IVP SCH ×2 (05:44→14:09)
[2023-08-19 06:09] LABS: #Monocytes 0.6 thou/uL (0.11-0.59); #Neutrophils 9.2 thou/uL (1.40-6.50); %Basophils 0.1 % (0.0-1.0); %Eosinophils 0.4 % (0.0-10.0); %Monocytes 5.8 % (0.0-10.0); %Neutrophils 84.9 % (42.0-75.0); Hemoglobin 7.7 g/dL (14.0-18.0); Mean Corpuscular Hemoglobin 28.6 pg (27.0-31.0); Mean Corpuscular Volume 81.8 fl (78.0-98.0); Mean Platelet Volume 11.5 fL (7.4-10.4); Platelet Count 171 10x3/uL (130-400); RBC Distribution Width 18.4 % (11.5-14.5); Red Blood Cell (RBC) Count 2.69 mill/uL (4.70-6.10); White Blood Cell (WBC) Count 10.8 10x3/uL (4.8-10.8)
[2023-08-19 06:46] LABS: ALT (SGPT) 17 U/L (8-55); AST (SGOT) 34 U/L (5-34); Albumin 2.5 g/dL (3.4-4.8); Alkaline Phosphatase 128 U/L (40-110); Anion Gap 14 mmol/L (10-20); BUN (Urea Nitrogen) 54 mg/dL (8.4-25.7); Calc. Creatinine Clearance 34 mL/min (70-130); Carbon Dioxide 23 mmol/L (23-31); Chloride 107 mmol/L (98-107); Estimated GFR 32; Globulin 1.9 g/dL (2.4-3.5); Glucose 129 mg/dL (83-110); Potassium 3.5 mmol/L (3.5-5.1); Protein, Total 4.4 g/dL (5.8-8.1); Sodium 140 mmol/L (136-145)
[2023-08-19] MEDS: Pantoprazole 40 MG VIAL IVP SCH ×2 (08:10→20:34)
[2023-08-19] MEDS: Metoclopramide HCl 10 MG/2 ML VIAL IVP SCH ×4 (08:11→20:33)
[2023-08-19] MEDS: Meropenem 500 MG in Sodium Chloride 0.9% 100 ML IVPB SCH ×2 (08:23→20:32)
[2023-08-19 08:52] VITALS: BMI 28.3
[2023-08-19] MEDS: Metolazone 2.5 MG TAB PO SCH (08:58)
[2023-08-19] MEDS: Valproate Sodium 250 mg/5 ml UD Cup PO SCH ×4 (08:58→20:34)
[2023-08-19] MEDS ORDERED: Scopolamine 1 mg/72 hour Patch TD SCH (13:00)
[2023-08-20] MEDS: Acetaminophen 325 MG TAB PO SCH ×4 (02:19→20:25)
[2023-08-20] MEDS: Furosemide 40 MG/4 ML VIAL SLOW IVP SCH ×2 (05:29→13:57)
[2023-08-20] MEDS: traMADol HCl 50 MG TAB PO SCH ×4 (05:29→20:26)
[2023-08-20] MEDS: Levothyroxine Sodium 100 MCG TAB PO SCH (05:30)
[2023-08-20 05:59] LABS: ALT (SGPT) 16 U/L (8-55); AST (SGOT) 36 U/L (5-34); Albumin 2.5 g/dL (3.4-4.8); Alkaline Phosphatase 125 U/L (40-110); Anion Gap 10 mmol/L (10-20); BUN (Urea Nitrogen) 52 mg/dL (8.4-25.7); Bilirubin, Total 0.7 mg/dL (0.2-1.2); Calc. Creatinine Clearance 35 mL/min (70-130); Calcium 8.1 mg/dL (7.8-10.44); Carbon Dioxide 26 mmol/L (23-31); Chloride 109 mmol/L (98-107); Estimated GFR 33; Globulin 2.1 g/dL (2.4-3.5); Glucose 153 mg/dL (83-110); Potassium 3.4 mmol/L (3.5-5.1); Protein, Total 4.6 g/dL (5.8-8.1); Sodium 142 mmol/L (136-145)
[2023-08-20 06:53] LABS: #Eosinphils 0.1 thou/uL (0.0-0.7); #Monocytes 0.6 thou/uL (0.11-0.59); #Neutrophils 8.9 thou/uL (1.40-6.50); %Basophils 0.2 % (0.0-1.0); %Eosinophils 0.7 % (0.0-10.0); %Lymphocytes 8.3 % (21.0-51.0); %Monocytes 5.2 % (0.0-10.0); %Neutrophils 84.8 % (42.0-75.0); Hematocrit 20.9 % (42.0-52.0); Hemoglobin 7.2 g/dL (14.0-18.0); Mean Corpuscular HGB CONC 34.4 g/dL (32.0-36.0); Mean Corpuscular Hemoglobin 28.3 pg (27.0-31.0); Mean Corpuscular Volume 82.3 fl (78.0-98.0); Mean Platelet Volume 11.4 fL (7.4-10.4); Platelet Count 182 10x3/uL (130-400); Red Blood Cell (RBC) Count 2.54 mill/uL (4.70-6.10); White Blood Cell (WBC) Count 10.5 10x3/uL (4.8-10.8)
[2023-08-20] MEDS: Meropenem 500 MG in Sodium Chloride 0.9% 100 ML IVPB SCH (09:13)
[2023-08-20] MEDS: Metolazone 2.5 MG TAB PO SCH (09:14)
[2023-08-20] MEDS: Pantoprazole 40 MG VIAL IVP SCH ×2 (09:14→20:25)
[2023-08-20] MEDS: Valproate Sodium 250 mg/5 ml UD Cup PO SCH ×4 (09:14→20:24)
[2023-08-20] MEDS: Metoclopramide HCl 10 MG/2 ML VIAL IVP SCH ×4 (09:15→20:25)
[2023-08-20 23:44] VITALS: TEMP 98.2
[2023-08-21] MEDS: Acetaminophen 325 MG TAB PO SCH ×2 (03:06→09:27)
[2023-08-21] MEDS: traMADol HCl 50 MG TAB PO SCH ×2 (03:07→09:27)
[2023-08-21] MEDS: Levothyroxine Sodium 100 MCG TAB PO SCH (06:18)
[2023-08-21] MEDS: Furosemide 40 MG/4 ML VIAL SLOW IVP SCH (06:18)
[2023-08-21 06:20] LABS: #Monocytes 0.6 thou/uL (0.11-0.59); #Neutrophils 7.5 thou/uL (1.40-6.50); %Basophils 0.1 % (0.0-1.0); %Eosinophils 0.4 % (0.0-10.0); %Lymphocytes 8.6 % (21.0-51.0); %Monocytes 7.1 % (0.0-10.0); %Neutrophils 83.1 % (42.0-75.0); Hematocrit 20.4 % (42.0-52.0); Mean Corpuscular HGB CONC 34.3 g/dL (32.0-36.0); Mean Corpuscular Hemoglobin 28.7 pg (27.0-31.0); Mean Corpuscular Volume 83.6 fl (78.0-98.0); Mean Platelet Volume 11.8 fL (7.4-10.4); Platelet Count 206 10x3/uL (130-400); RBC Distribution Width 18.8 % (11.5-14.5); Red Blood Cell (RBC) Count 2.44 mill/uL (4.70-6.10); White Blood Cell (WBC) Count 9.1 10x3/uL (4.8-10.8)
[2023-08-21 06:57] LABS: ALT (SGPT) 18 U/L (8-55); AST (SGOT) 33 U/L (5-34); Albumin 2.4 g/dL (3.4-4.8); Alkaline Phosphatase 118 U/L (40-110); Anion Gap 11 mmol/L (10-20); BUN (Urea Nitrogen) 49 mg/dL (8.4-25.7); Bilirubin, Total 1.1 mg/dL (0.2-1.2); Calc. Creatinine Clearance 37 mL/min (70-130); Calcium 8.1 mg/dL (7.8-10.44); Carbon Dioxide 27 mmol/L (23-31); Chloride 108 mmol/L (98-107); Estimated GFR 35; Globulin 2.2 g/dL (2.4-3.5); Glucose 111 mg/dL (83-110); Potassium 3.2 mmol/L (3.5-5.1); Protein, Total 4.6 g/dL (5.8-8.1); Sodium 143 mmol/L (136-145)
[2023-08-21] MEDS: Valproate Sodium 250 mg/5 ml UD Cup PO SCH ×2 (09:27→12:15)
[2023-08-21] MEDS: Pantoprazole 40 MG VIAL IVP SCH (09:28)
[2023-08-21] MEDS: Metoclopramide HCl 10 MG/2 ML VIAL IVP SCH ×2 (09:28→12:15)
[2023-08-21] MEDS: Metolazone 2.5 MG TAB PO SCH (09:29)
[2023-08-21 13:06] VITALS: BP 125/52
[2023-08-21] MEDS ORDERED: Ferrous Sulfate 325 MG TAB PO SCH (17:00)
[2023-08-22] MEDS ORDERED: Ascorbic Acid 500 mg Chewable Tablet PO SCH (09:00)
== END 2023-08-21 13:00 | disposition hospice, inpatient (51) | DRG 853 ==
LOC: ERS 17:57 → ERHOLD 21:52 → 2NO 08-11 00:08 → CCU 08-11 20:31 → T4-A 08-18 20:26
PROVIDERS: ADMIT Student in an Organized Health Care Education/Training Program; ATTEND Family Medicine
PROC: 0T9B70Z Drainage of Bladder with Drainage Device, Via Natural or Artificial Opening (ICD-10-PCS; principal; 2023-08-10)
PROC: 0FT44ZZ Resection of Gallbladder, Percutaneous Endoscopic Approach (ICD-10-PCS; 2023-08-11)
PROC: BF101ZZ Fluoroscopy of Bile Ducts using Low Osmolar Contrast (ICD-10-PCS; 2023-08-11)
PROC: 0FC98ZZ Extirpation of Matter from Common Bile Duct, Via Natural or Artificial Opening Endoscopic (ICD-10-PCS; 2023-08-11)
PROC: 30233N1 Transfusion of Nonautologous Red Blood Cells into Peripheral Vein, Percutaneous Approach (ICD-10-PCS; 2023-08-11)
PROC: 6A550Z2 Pheresis of Platelets, Single (ICD-10-PCS; 2023-08-11)
PROC: 30233K1 Transfusion of Nonautologous Frozen Plasma into Peripheral Vein, Percutaneous Approach (ICD-10-PCS; 2023-08-11)
PROC: 3E03329 Introduction of Other Anti-infective into Peripheral Vein, Percutaneous Approach (ICD-10-PCS; 2023-08-11)
PROC: 3E033XZ Introduction of Vasopressor into Peripheral Vein, Percutaneous Approach (ICD-10-PCS; 2023-08-12)
PROC: 30233J1 Transfusion of Nonautologous Serum Albumin into Peripheral Vein, Percutaneous Approach (ICD-10-PCS; 2023-08-12)
PROC: 5A1955Z Respiratory Ventilation, Greater than 96 Consecutive Hours (ICD-10-PCS; 2023-08-12)
PROC: 4A133R1 Monitoring of Arterial Saturation, Peripheral, Percutaneous Approach (ICD-10-PCS; 2023-08-13)
DX: A41.9 Sepsis, unspecified organism (principal); G93.41 Metabolic encephalopathy; N17.0 Acute kidney failure with tubular necrosis; R65.21 Severe sepsis with septic shock; R57.8 Other shock; K85.90 Acute pancreatitis without necrosis or infection, unspecified; J96.00 Acute respiratory failure, unspecified whether with hypoxia or hypercapnia; I50.33 Acute on chronic diastolic (congestive) heart failure; N39.0 Urinary tract infection, site not specified; K80.00 Calculus of gallbladder with acute cholecystitis without obstruction; K83.09 Other cholangitis; I48.92 Unspecified atrial flutter; I13.0 Hypertensive heart and chronic kidney disease with heart failure and stage 1 through stage 4 chronic kidney disease, or unspecified chronic kidney disease; Z66 Do not resuscitate; Z51.5 Encounter for palliative care; I48.91 Unspecified atrial fibrillation; R74.01 Elevation of levels of liver transaminase levels; D63.1 Anemia in chronic kidney disease; F03.90 Unspecified dementia, unspecified severity, without behavioral disturbance, psychotic disturbance, mood disturbance, and anxiety; E11.22 Type 2 diabetes mellitus with diabetic chronic kidney disease; E03.9 Hypothyroidism, unspecified; Z79.899 Other long term (current) drug therapy; Z90.89 Acquired absence of other organs; Z96.649 Presence of unspecified artificial hip joint; Z11.52 Encounter for screening for COVID-19; E78.5 Hyperlipidemia, unspecified; F31.9 Bipolar disorder, unspecified; E78.00 Pure hypercholesterolemia, unspecified; D50.0 Iron deficiency anemia secondary to blood loss (chronic); N18.30 Chronic kidney disease, stage 3 unspecified; D69.6 Thrombocytopenia, unspecified
CPT/HCPCS: 36415; 36416; 36430; 36600; 47532; 51701; 70450; 71045; 74018; 74176; 74330; 76705; 80048; 80053; 80076; 80164; 80202; 81001; 82274; 82533; 82805; 83605; 83690; 83735; 83880; 84100; 84145; 84484; 85014; 85018; 85025; 85049; 85384; 85610; 85730; 86140; 86850; 86900; 86901; 87040; 87077; 87086; 87149; 88304; 93005; 93010; 93306; 94003; 96365; 96367; 96375; C1713; C1751; C1889; C9113; J0171; J0696; J1100; J1160; J1265; J1611; J1650; J1940; J2060; J2185; J2405; J2704; J2765; J3010; J3370; J3370-JW; J3475; J3480; J3490; J7050; P9016; P9035; P9047; P9059; Q9967; S0020